=== PATIENT | female | born 1975 | race American Indian/Alaskan Native ===

== ENCOUNTER 2022-01-12 00:48 | Emergency (ER) | payer MEDICAID ==
[2022-01-12 00:56] VITALS: BP 140/90
== END 2022-01-12 02:00 | disposition left against medical advice (07) ==
LOC: ED 00:48
DX: M79.604 Pain in right leg (principal); Z53.21 Procedure and treatment not carried out due to patient leaving prior to being seen by health care provider

== ENCOUNTER 2022-01-12 05:03 | Emergency (ER) | payer MEDICAID ==
--- NOTE | 2022-01-12 07:23 | XRay Report ---
RIGHT HIP 2 VIEW(S) INDICATION / CLINICAL INFORMATION: fall COMPARISON: Right hip x-ray 01/06/2022 FINDINGS: BONES / JOINT(S): Severe degenerative change of the right femoral acetabular joint is stable compared to previous study with subarticular cystic changes and deformity of the right femoral head compatibl e with advanced osteonecrosis as well as shallow appearance of the right acetabulum unchanged from co mparison. Superior translation of the right femoral head within the femoral acetabular joint appears stable. No evidence of fracture clearly demonstrated. SOFT TISSUES: No significant abnormality. ADDITIONAL FINDINGS: Additional AP view of the pelvis demonstrates no acute fracture of the pelvis or proximal left femur. IMPRESSION: 1. 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 No obvious acute superimposed fracture. Signer Name: Dominick White II, MD Signed: 01/12/2022 7:19 AM Workstation Name: [id number]
[2022-01-12] MEDS ORDERED: HYDROcodone/ACETAMINOPHEN 10-325MG TAB PO ONE (07:24)
--- NOTE | 2022-01-12 07:24 | XRay Report ---
RIGHT KNEE 3 VIEW(S) INDICATION / CLINICAL INFORMATION: fall COMPARISON: None available. FINDINGS: BONES / JOINT(S): No acute fracture or subluxation. No significant arthritis. SOFT TISSUES: No significant abnormality. ADDITIONAL FINDINGS: None. IMPRESSION: 1.No acute findings. No significant abnormality. Signer Name: Dominick White II, MD Signed: 01/12/2022 7:19 AM Workstation Name: [id number]
--- NOTE | 2022-01-12 07:38 | XRay Report ---
LUMBAR SPINE 4 VIEWS INDICATION / CLINICAL INFORMATION: fall. COMPARISON: None available. FINDINGS: VERTEBRAE: No acute fracture. No significant malalignment. DISC SPACES / FACET JOINTS:No significant abnormality. PARASPINAL SOFT TISSUES:No significant abnormality. ADDITIONAL FINDINGS: Advanced osteonecrosis of the right femoral head. IMPRESSION: 1. No acute osseous injury of the lumbar spine. Signer Name: Dominick White II, MD Signed: 01/12/2022 7:33 AM Workstation Name: [id number]
--- NOTE | 2022-01-12 07:41 | Emergency Department Report ---
ED Fall HPI - General Chief Complaint: Fall Stated Complaint: LEG PAIN Time Seen by Provider: 01/12/22 06:13 Source: patient Mode of arrival: Ambulatory - History of Present Illness Initial Comments: This is a 47-year-old [place] nontoxic, well nourished in appearance, no acute signs of distress presents to the ED with c/o of right hip and right knee pains s/p fall a few days. Patient stated that she had a mechanical trip and fall down the hill and landed to the right hip area. Patient denies any other injuries or trauma. Patient denies any radiation of pain. Denies any LOC or head trauma. Denies any neck or back pains. Denies any bladder or bowel instability. Patient denies any urinary symptoms. Denies any fever, chills, nausea, vomiting, headache, stiff neck, chest pain or shortness of breath. Patient denies any numbness or tingling. MD Complaint: fall -: days(s) Place Fall Occurred: street Loss of Consciousness: none Prolonged Down Time?: no Symptoms Prior to Fall: none Location - Extremities: Right: Knee Severity: mild Severity scale (0 -10): 8 Quality: aching Context: tripped/slipped Associated Symptoms: denies. denies: headache, neck pain, numbness, weakness, chest paint, shortness of breath, abdominal pain, hematuria, unable to walk, lightheaded, vertigo, confusion - Related Data Home Medications Medication Instructions Recorded Confirmed Last Taken Albuterol Mdi (or & Nicu Only) 2 puff IH QID PRN 01/06/22 01/06/22 Unknown [ProAir HFA Inhaler] Apixaban [Eliquis] 5 mg PO BID 01/06/22 01/06/22 Unknown Bisoprolol/Hydrochlorothiazide 1 each PO DAILY 01/06/22 01/06/22 Unknown [Bisoprolol-Hctz 5-6.25 mg Tab] Clotrimazole 1% [Lotrimin 1%] 1 applic TP BID 01/06/22 01/06/22 Unknown Diclofenac Sodium 50 mg PO BID 01/06/22 01/06/22 Unknown Fluticasone/Salmeterol [Advair 2 puff INHALATION DAILY 01/06/22 01/06/22 Unknown Diskus 100-50 mcg] Gabapentin 100 mg PO Q8HR 01/06/22 01/06/22 Unknown Hydrocortisone 1% [Hydrocortisone 1 applic DAILY 01/06/22 01/06/22 Unknown 1% CREAM] Mupirocin [Bactroban 2% OINT] 1 applic TP TID 01/06/22 01/06/22 Unknown glipiZIDE [Glucotrol] 10 mg PO BID 01/06/22 01/06/22 Unknown lisinopriL [Lisinopril] 10 mg PO DAILY 01/06/22 01/06/22 Unknown metFORMIN [Glucophage] 500 mg PO BID 01/06/22 01/06/22 Unknown Previous Rx's Medication Instructions Recorded Last Taken Type Aspirin [Aspirin BABY CHEW TAB] 81 mg PO QDAY #30 01/09/22 Unknown Rx AtorvaSTATin [Lipitor] 40 mg PO QHS #30 tablet 01/09/22 Unknown Rx Docusate Sodium [Colace CAP] 100 mg PO BID #20 capsule 01/09/22 Unknown Rx Famotidine [Pepcid] 20 mg PO BID #20 tablet 01/09/22 Unknown Rx Acetaminophen [Acetaminophen 8 650 mg PO Q8H PRN #12 tab 01/12/22 Unknown Rx Hour] Allergies Allergy/AdvReac Type Severity Reaction Status Date / Time Iodine and Iodide Containing Allergy Unknown Verified 01/06/22 01:55 Produc tuberculin,PPD,multi-puncture Allergy Unknown Verified 01/06/22 01:55 ED Review of Systems ROS: Stated complaint: LEG PAIN Other details as noted in HPI Comment: All other systems reviewed and negative Constitutional: denies: chills, fever Eyes: denies: eye pain, eye discharge, vision change ENT: denies: ear pain, throat pain Respiratory: denies: cough, shortness of breath, wheezing Cardiovascular: denies: chest pain, palpitations Endocrine: no symptoms reported Gastrointestinal: denies: abdominal pain, nausea, diarrhea Genitourinary: denies: urgency, dysuria, discharge Musculoskeletal: denies: back pain, joint swelling, arthralgia Skin: denies: rash, lesions Neurological: denies: headache, weakness, paresthesias Psychiatric: denies: anxiety, depression Hematological/Lymphatic: denies: easy bleeding, easy bruising ED Past Medical Hx - Past Medical History Previous Medical History?: Yes Hx Hypertension: Yes Hx Heart Attack/AMI: Yes Hx Congestive Heart Failure: Yes Hx Diabetes: Yes Hx Deep Vein Thrombosis: Yes Hx Arthritis: Yes Hx Psychiatric Treatment: Yes Hx Asthma: Yes Hx COPD: Yes Additional medical history: CHRONIC BILATERAL LEG PAIN - Surgical History Past Surgical History?: Yes Hx Coronary Stent: Yes - Social History Smoking Status: Current Every Day Smoker - Medications Home Medications: Home Medications Medication Instructions Recorded Confirmed Last Taken Type Albuterol Mdi (or & Nicu Only) 2 puff IH QID PRN 01/06/22 01/06/22 Unknown History [ProAir HFA Inhaler] Apixaban [Eliquis] 5 mg PO BID 01/06/22 01/06/22 Unknown History Bisoprolol/Hydrochlorothiazide 1 each PO DAILY 01/06/22 01/06/22 Unknown History [Bisoprolol-Hctz 5-6.25 mg Tab] Clotrimazole 1% [Lotrimin 1%] 1 applic TP BID 01/06/22 01/06/22 Unknown History Diclofenac Sodium 50 mg PO BID 01/06/22 01/06/22 Unknown History Fluticasone/Salmeterol [Advair 2 puff INHALATION DAILY 01/06/22 01/06/22 Unknown History Diskus 100-50 mcg] Gabapentin 100 mg PO Q8HR 01/06/22 01/06/22 Unknown History Hydrocortisone 1% [Hydrocortisone 1 applic DAILY 01/06/22 01/06/22 Unknown History 1% CREAM] Mupirocin [Bactroban 2% OINT] 1 applic TP TID 01/06/22 01/06/22 Unknown History glipiZIDE [Glucotrol] 10 mg PO BID 01/06/22 01/06/22 Unknown History lisinopriL [Lisinopril] 10 mg PO DAILY 01/06/22 01/06/22 Unknown History metFORMIN [Glucophage] 500 mg PO BID 01/06/22 01/06/22 Unknown History Aspirin [Aspirin BABY CHEW TAB] 81 mg PO QDAY #30 01/09/22 Unknown Rx AtorvaSTATin [Lipitor] 40 mg PO QHS #30 tablet 01/09/22 Unknown Rx Docusate Sodium [Colace CAP] 100 mg PO BID #20 capsule 01/09/22 Unknown Rx Famotidine [Pepcid] 20 mg PO BID #20 tablet 01/09/22 Unknown Rx Acetaminophen [Acetaminophen 8 650 mg PO Q8H PRN #12 tab 01/12/22 Unknown Rx Hour] ED Physical Exam - General Limitations: No Limitations General appearance: alert, in no apparent distress - Head Head exam: Present: atraumatic, normocephalic - Eye Eye exam: Present: normal appearance, PERRL, EOMI - Neck Neck exam: Present: normal inspection, full ROM. Absent: lymphadenopathy - Respiratory Respiratory exam: Present: normal lung sounds bilaterally. Absent: respiratory distress, wheezes, rales, rhonchi, stridor, chest wall tenderness, accessory muscle use, decreased breath sounds, prolonged expiratory - Cardiovascular Cardiovascular Exam: Present: regular rate, normal rhythm, normal heart sounds. Absent: bradycardia, tachycardia, irregular rhythm, systolic murmur, diastolic murmur, rubs, gallop - GI/Abdominal GI/Abdominal exam: Present: soft, normal bowel sounds. Absent: distended, tenderness, guarding, rebound, rigid - Extremities Exam Extremities exam: Present: normal inspection, full ROM, tenderness, normal capillary refill. Absent: pedal edema, joint swelling, calf tenderness - Expanded Lower Extremity Exam Right Hip exam: Present: normal inspection, full ROM, tenderness, external rotation, internal rotation, pelvic stability. Absent: swelling, abrasion, laceration, ecchymosis, deformity, crepidus, dislocation, erythema, shortening Upper Leg exam: Present: normal inspection, full ROM. Absent: tenderness, swe lling, abrasion, laceration, ecchymosis, deformity, crepidus, dislocation, erythema Knee exam: Present: normal inspection, full ROM, tenderness, full knee extension. Absent: swelling, abrasion, laceration, ecchymosis, deformity, crepidus, dislocation, erythema, effusion, pain w/ pronation/supination, posterior draw sign, pain/laxity with valgus, pain/laxity with varus Lower Leg exam: Present: normal inspection, full ROM. Absent: tenderness, swelling, abrasion, laceration, ecchymosis, deformity, crepidus, dislocation, erythema, palpable cord, Andrew's sign Ankle exam: Present: normal inspection, full ROM. Absent: tenderness, swelling Foot/Toe exam: Present: normal inspection, full ROM. Absent: tenderness, swelling Neuro vascular tendon exam: Present: no vascular compromise Gait: Positive: observed and limited by pain - Back Exam Back exam: Present: normal inspection, full ROM. Absent: tenderness, CVA tenderness (R), CVA tenderness (L), muscle spasm, paraspinal tenderness, vertebral tenderness, rash noted - Neurological Exam Neurological exam: Present: alert, oriented X3 - Psychiatric Psychiatric exam: Present: normal affect, normal mood - Skin Skin exam: Present: warm, dry, intact, normal color. Absent: rash ED Course Vital Signs 01/12/22 05:13 Temperature 98.4 F Pulse Rate 68 Respiratory 16 Rate Blood Pressure 133/84 [Right] O2 Sat by Pulse 97 Oximetry - Reevaluation(s) Reevaluation #1: 01/12/22 07:59 Patient is speaking in full sentences with no signs of distress noted. - Consultations Consultation #1: 01/12/22 08:30 Patient has been consulted with Dr. Epps (orthopedic) about patient history, physical exam, and present imaging studies and pervious imaging studies and patient can be discharged with follow-up in the office in 3-5 days. ED Medical Decision Making - Radiology Data [facility] [address] [place] [address] XRay Report Signed Patient: ESPERANZA FINK MR# : [id number] : 1975 Acct:[id number] Age/Sex: 47 / F ADM Date: 01/12/22 Loc: ED Attending Dr: Ordering Physician: BARRERA LEACH NP Date of Service: 01/12/22 Procedure(s): XR spine lumbosacral 2-3V Accession Number(s): [id number] cc: BARRERA LEACH NP Fluoro Time In Minutes: LUMBAR SPINE 4 VIEWS INDICATION / CLINICAL INFORMATION: fall. COMPARISON: None available. FINDINGS: VERTEBRAE: No acute fracture. No significant malalignment. DISC SPACES / FACET JOINTS:No significant abnormality. PARASPINAL SOFT TISSUES:No significant abnormality. ADDITIONAL FINDINGS: Advanced osteonecrosis of the right femoral head. IMPRESSION: 1. No acute osseous injury of the lumbar spine. Signer Name: Lisa Mcgovern II, MD Signed: 01/12/2022 7:33 AM Workstation Name: [id number] Transcribed By: MARLON Dictated By: LISA MCGOVERN II, MD Electronically Authenticated By: LISA MCGOVERN II, MD Signed Date/Time: 01/12/22732 DD/ 2 TD/TT: [address] [address] XRay Report Signed Patient: ESPERANZA FINK MR# : [id number] : 1975 Acct:[id number] Age/Sex: 47 / F ADM Date: 01/12/22 Loc: ED Attending Dr: Ordering Physician: LEONORA MOCTEZUMA MD Date of Service: 01/12/22 Procedure(s): XR knee 3V RT Accession Number(s): [id number] cc: LEONORA MOCTEZUMA MD Fluoro Time In Minutes: RIGHT KNEE 3 VIEW(S) INDICATION / CLINICAL INFORMATION: fall COMPARISON: None available. FINDINGS: BONES / JOINT(S): No acute fracture or subluxation. No significant arthritis. SOFT TISSUES: No significant abnormality. ADDITIONAL FINDINGS: None. IMPRESSION: 1.No acute findings. No significant abnormality. Signer Name: Lisa Mcgovern II, MD Signed: 01/12/2022 7:19 AM Workstation Name: [id number] Transcribed By: MARLON Dictated By: LISA MCGOVERN II, MD Electronically Authenticated By: LISA MCGOVERN II, MD Signed Date/Time: 01/12/22718 DD/ 8 TD/TT: [address] [address] XRay Report Signed Patient: ESPERANZA FINK MR# : [id number] : 1975 Acct:[id number] Age/Sex: 47 / F ADM Date: 01/12/22 Loc: ED Attending Dr: Ordering Physician: LEONORA MOCTEZUMA MD Date of Service: 01/12/22 Procedure(s): XR hip 2-3V RT Accession Number(s): [id number] cc: LEONORA MOCTEZUMA MD Fluoro Time In Minutes: RIGHT HIP 2 VIEW(S) INDICATION / CLINICAL INFORMATION: fall COMPARISON: Right hip x-ray 01/06/2022 FINDINGS: BONES / JOINT(S): Severe degenerative change of the right femoral acetabular joint is stable compared to previous study with subarticular cystic changes and deformity of the right femoral head compatible with advanced osteonecrosis as well as shallow appearance of the right acetabulum unchanged from comparison. Superior translation of the right femoral head within the femoral acetabular joint appears stable. No evidence of fracture clearly demonstrated. SOFT TISSUES: No significant abnormality. ADDITIONAL FINDINGS: Additional AP view of the pelvis demonstrates no acute fracture of the pelvis or proximal left femur. IMPRESSION: 1. 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 No obvious acute superimposed fracture. Signer Name: Lisa Mcgovern II, MD Signed: 01/12/2022 7:19 AM Workstation Name: [id number] Transcribed By: MARLON Dictated By: LISA MCGOVERN II, MD Electronically Authenticated By: LISA MCGOVERN II, MD Signed Date/Time: 01/12/22718 DD/ 6 TD/TT: - Medical Decision Making This is a 47-year-old female that presents with fall. Patient is stable and was examined by me. I referred patient to an orthopedic doctor for further evaluation for possible MRI. X-ray has been obtained and dictated by the radiologist. Patient is notified of the x-ray report with noted by the patient. No joint swelling. No ecchymosis. no joint redness or swelling. Not warm to touch. No signs of cellulites present. Patient does have a cane that she uses. Patient was instructed to RICE therapy. Patient received [place] for pain which stated improved and stated has someone driving patient home. Patient is discharged with Tylenol Arthritis. At time of discharge, the patient does not seem toxic or ill in appearance. No acute signs of distress noted. Patient agrees to discharge treatment plan of care. No further questions noted by the patient. Critical care attestation.: If time is entered above; I have spent that time in minutes in the direct care of this critically ill patient, excluding procedure time. ED Disposition Clinical Impression: Osteonecrosis of right hip Fall Qualifiers: Encounter type: initial encounter Qualified Code(s): W19.XXXA - Unspecified fall, initial encounter Osteoarthritis of right hip Qualifiers: Osteoarthritis type: unspecified Qualified Code(s): M16.11 - Unilateral primary osteoarthritis, right hip Right knee injury Qualifiers: Encounter type: initial encounter Qualified Code(s): S89.91XA - Unspecified injury of right lower leg, initial encounter Injury of right hip Qualifiers: Encounter type: initial encounter Qualified Code(s): S79.911A - Unspecified injury of right hip, initial encounter Disposition: HOME / SELF CARE / HOMELESS Is pt being admited?: No Does the pt Need Aspirin: No Condition: Stable Instructions: Osteoarthritis Additional Instructions: Follow-up with a orthopedic doctor in 3-5 days or if symptoms worsen and continue return to emergency room as soon as possible. No physical activity that extremity until cleared by orthopedic doctor Prescriptions: Acetaminophen [Acetaminophen 8 Hour] 650 mg PO Q8H PRN #12 tab PRN Reason: Pain , Severe (7-10) Referrals: DONA WATTS MD [Primary Care Provider] - 3-5 Days SASKIA EPPS MD [Staff Physician] - 3-5 Days Time of Disposition: 08:35
[2022-01-12 09:11] VITALS: BP 147/87
== END 2022-01-12 09:15 | disposition home or self-care (01) ==
LOC: ED 05:03
DX: S89.81XA Other specified injuries of right lower leg, initial encounter (principal); S79.911A Unspecified injury of right hip, initial encounter; M87.051 Idiopathic aseptic necrosis of right femur; M16.11 Unilateral primary osteoarthritis, right hip; F17.200 Nicotine dependence, unspecified, uncomplicated; I10 Essential (primary) hypertension; E11.9 Type 2 diabetes mellitus without complications; J45.909 Unspecified asthma, uncomplicated; W19.XXXA Unspecified fall, initial encounter; Y93.89 Activity, other specified; Y92.89 Other specified places as the place of occurrence of the external cause; Y99.8 Other external cause status
CPT/HCPCS: 72100; 99283

== ENCOUNTER 2022-01-13 22:29 | Emergency (ER) | payer MEDICAID ==
--- NOTE | 2022-01-13 23:05 | Emergency Department Report ---
ED General Adult HPI - General Chief complaint: Arrhythmia/Palpitations Stated complaint: HIGH BLOOD SUGAR Time Seen by Provider: 01/13/22 22:52 Source: patient - History of Present Illness Initial comments: This patient presented to the emergency department for evaluation of elevation blood sugar. Patient is on Metformin and glyburide states that she is compliant with her medications. The EMS run sheet is not available but it was stated that the patient complained of palpitations and on checking the glucose found to be reading high on the glucometer. In the emergency department the patient appears to be difficult to understand at times. It would appear that she lives in [facility] and came to [place] 2 weeks ago to live with someone. The relationship of prior events hours at the base of the the patient may be homeless. She denies chest pain nausea diaphoresis or palpitations. -: Gradual, days(s) Improves with: none Worsens with: none Associated Symptoms: denies: chest pain, headaches, nausea/vomiting, shortness of breath Treatments Prior to Arrival: none - Related Data Home Medications Medication Instructions Recorded Confirmed Last Taken Albuterol Mdi (or & Nicu Only) 2 puff IH QID PRN 01/06/22 01/06/22 Unknown [ProAir HFA Inhaler] Apixaban [Eliquis] 5 mg PO BID 01/06/22 01/06/22 Unknown Bisoprolol/Hydrochlorothiazide 1 each PO DAILY 01/06/22 01/06/22 Unknown [Bisoprolol-Hctz 5-6.25 mg Tab] Clotrimazole 1% [Lotrimin 1%] 1 applic TP BID 01/06/22 01/06/22 Unknown Diclofenac Sodium 50 mg PO BID 01/06/22 01/06/22 Unknown Fluticasone/Salmeterol [Advair 2 puff INHALATION DAILY 01/06/22 01/06/22 Unknown Diskus 100-50 mcg] Gabapentin 100 mg PO Q8HR 01/06/22 01/06/22 Unknown Hydrocortisone 1% [Hydrocortisone 1 applic DAILY 01/06/22 01/06/22 Unknown 1% CREAM] Mupirocin [Bactroban 2% OINT] 1 applic TP TID 01/06/22 01/06/22 Unknown glipiZIDE [Glucotrol] 10 mg PO BID 01/06/22 01/06/22 Unknown lisinopriL [Lisinopril] 10 mg PO DAILY 01/06/22 01/06/22 Unknown metFORMIN [Glucophage] 500 mg PO BID 01/06/22 01/06/22 Unknown Previous Rx's Medication Instructions Recorded Last Taken Type Aspirin [Aspirin BABY CHEW TAB] 81 mg PO QDAY #30 01/09/22 Unknown Rx AtorvaSTATin [Lipitor] 40 mg PO QHS #30 tablet 01/09/22 Unknown Rx Docusate Sodium [Colace CAP] 100 mg PO BID #20 capsule 01/09/22 Unknown Rx Famotidine [Pepcid] 20 mg PO BID #20 tablet 01/09/22 Unknown Rx Acetaminophen [Acetaminophen 8 650 mg PO Q8H PRN #12 tab 01/12/22 Unknown Rx Hour] Allergies Allergy/AdvReac Type Severity Reaction Status Date / Time Iodine and Iodide Containing Allergy Unknown Verified 01/06/22 01:55 Produc tuberculin,PPD,multi-puncture Allergy Unknown Verified 01/06/22 01:55 ED Review of Systems ROS: Stated complaint: HIGH BLOOD SUGAR Other details as noted in HPI Constitutional: no symptoms reported. denies: chills, fever ENT: denies: ear pain, throat pain Respiratory: denies: cough, shortness of breath, wheezing Cardiovascular: palpitations. denies: chest pain, edema Endocrine: no symptoms reported Gastrointestinal: denies: abdominal pain, nausea, diarrhea Genitourinary: denies: urgency, dysuria, frequency Skin: denies: rash, lesions Neurological: denies: headache, weakness, numbness, paresthesias Psychiatric: denies: homicidal thoughts, suicidal thoughts Hematological/Lymphatic: denies: easy bleeding, swollen glands ED Past Medical Hx - Past Medical History Hx Hypertension: Yes Hx Heart Attack/AMI: Yes Hx Congestive Heart Failure: Yes Hx Diabetes: Yes Hx Deep Vein Thrombosis: Yes Hx Arthritis: Yes Hx Psychiatric Treatment: Yes Hx Asthma: Yes Hx COPD: Yes Additional medical history: CHRONIC BILATERAL LEG PAIN - Surgical History Hx Coronary Stent: Yes - Social History Smoking Status: Current Every Day Smoker - Medications Home Medications: Home Medications Medication Instructions Recorded Confirmed Last Taken Type Albuterol Mdi (or & Nicu Only) 2 puff IH QID PRN 01/06/22 01/06/22 Unknown History [ProAir HFA Inhaler] Apixaban [Eliquis] 5 mg PO BID 01/06/22 01/06/22 Unknown History Bisoprolol/Hydrochlorothiazide 1 each PO DAILY 01/06/22 01/06/22 Unknown History [Bisoprolol-Hctz 5-6.25 mg Tab] Clotrimazole 1% [Lotrimin 1%] 1 applic TP BID 01/06/22 01/06/22 Unknown History Diclofenac Sodium 50 mg PO BID 01/06/22 01/06/22 Unknown History Fluticasone/Salmeterol [Advair 2 puff INHALATION DAILY 01/06/22 01/06/22 Unknown History Diskus 100-50 mcg] Gabapentin 100 mg PO Q8HR 01/06/22 01/06/22 Unknown History Hydrocortisone 1% [Hydrocortisone 1 applic DAILY 01/06/22 01/06/22 Unknown History 1% CREAM] Mupirocin [Bactroban 2% OINT] 1 applic TP TID 01/06/22 01/06/22 Unknown History glipiZIDE [Glucotrol] 10 mg PO BID 01/06/22 01/06/22 Unknown History lisinopriL [Lisinopril] 10 mg PO DAILY 01/06/22 01/06/22 Unknown History metFORMIN [Glucophage] 500 mg PO BID 01/06/22 01/06/22 Unknown History Aspirin [Aspirin BABY CHEW TAB] 81 mg PO QDAY #30 01/09/22 Unknown Rx AtorvaSTATin [Lipitor] 40 mg PO QHS #30 tablet 01/09/22 Unknown Rx Docusate Sodium [Colace CAP] 100 mg PO BID #20 capsule 01/09/22 Unknown Rx Famotidine [Pepcid] 20 mg PO BID #20 tablet 01/09/22 Unknown Rx Acetaminophen [Acetaminophen 8 650 mg PO Q8H PRN #12 tab 01/12/22 Unknown Rx Hour] ED Physical Exam - General Limitations: Language Barrier (At times the patient speech is garbled, although she is able to say with some clarity that she is from [facility].) General appearance: alert, in no apparent distress - Head Head exam: Present: atraumatic, normocephalic - Eye Eye exam: Present: normal appearance - ENT ENT exam: Present: mucous membranes dry - Neck Neck exam: Present: normal inspection. Absent: tenderness - Respiratory Respiratory exam: Present: wheezes (Mild expiratory) - Cardiovascular Cardiovascular Exam: Present: regular rate, normal rhythm. Absent: systolic murmur, diastolic murmur, rubs, gallop - GI/Abdominal GI/Abdominal exam: Present: soft, normal bowel sounds - Rectal Rectal exam: Present: deferred - Extremities Exam Extremities exam: Present: normal inspection, full ROM. Absent: tenderness - Back Exam Back exam: Present: normal inspection, full ROM. Absent: tenderness, CVA tenderness (R), CVA tenderness (L) - Neurological Exam Neurological exam: Present: alert, oriented X3 - Psychiatric Psychiatric exam: Present: flat affect - Skin Skin exam: Present: warm, dry, intact ED Course Vital Signs 01/13/22 01/14/22 01/14/22 23:07 00:10 03:10 Temperature 97.9 F Pulse Rate 92 H 110 H Respiratory 16 16 16 Rate Blood Pressure 146/99 148/96 [Right] O2 Sat by Pulse 99 98 98 Oximetry 01/14/22 06:57 Temperature Pulse Rate 115 H Respiratory 16 Rate Blood Pressure 156/78 [Right] O2 Sat by Pulse 98 Oximetry ED Medical Decision Making - Lab Data Result diagrams: 01/13/22 23:33 01/13/22 23:33 The patient's labs showed marked elevation of her glucose. - Medical Decision Making Patient was started on IV fluids and given insulin IV. She has so far received 10 units of regular insulin with no significant change in her glucose. In reviewing her labs she does not appear to be in DKA. The patient has a history of congestive heart failure with results and treatment planto be judicious with fluid administration. The patient is on normal saline at 125 cc/h. A chest x- ray was performed in order to determine if the patient could receive fluids more rapidly. The result is pending. I have reevaluated the patient on multiple occasions in order to get some clarity on her social situation. It would appear that the patient came from [facility] to [place] 2 weeks ago, however the relationship between the patient and where she presented to live with went sour. The patient does not give a definite answer as to whether or not she is homeless. She may be in need of a case management evaluation. Critical care attestation.: If time is entered above; I have spent that time in minutes in the direct care of this critically ill patient, excluding procedure time. ED Disposition Clinical Impression: Hyperglycemia due to diabetes mellitus, Homelessness unspecified Disposition: HOME / SELF CARE / HOMELESS Is pt being admited?: No Condition: Stable Instructions: Diabetes Mellitus Type 2 in Adults (ED), Type 2 Diabetes Mellitus, Self Care, Adult Additional Instructions: Take your medications as prescribed from your previous visit. Return to the [facility] if any problems. Referrals: PRIMARY CARE,MD [Primary Care Provider] - 3-5 Days
[2022-01-13 23:52] LABS: Bilirubin,Urine NEG (Negative); Blood,Urine NEG (Negative); Color,Urine Straw (Yellow); Protein,Urine <15 mg/dL mg/dL (Negative); RBC,Urine < 1.0 /HPF (0.0-6.0); Urobilinogen,Urine < 2.0 mg/dL (<2.0); WBC,Urine < 1.0 /HPF (0.0-6.0)
[2022-01-14] LABS: Basophils # (Auto) 0.1 K/mm3 (0.0-0.1); Basophils % (Auto) 1.4 % (0.0-1.8); Eosinophils # (Auto) 0.1 K/mm3 (0.0-0.4); Eosinophils % (Auto) 2.2 % (0.0-4.3); Hematocrit 40.1 % (30.3-42.9); Hemoglobin 13.4 gm/dl (10.1-14.3); Lymphocytes % (Auto) 34.6 % (13.4-35.0); Mean Corpuscular HGB Conc 33 % (30-34); Mean Corpuscular Volume 89 fl (79-97); Monocytes # (Auto) 0.5 K/mm3 (0.0-0.8); Monocytes % (Auto) 8.5 % (0.0-7.3); Platelet Count 340 K/mm3 (140-440); Red Blood Count 4.54 M/mm3 (3.65-5.03); Red Cell Distribution Width 16.3 % (13.2-15.2)
[2022-01-14 00:15] LABS: Alanine Aminotransferase 14 units/L (7-56); Albumin 4.2 g/dL (3.9-5); Blood Urea Nitrogen 8 mg/dL (7-17); Calcium 9.9 mg/dL (8.4-10.2); Hemolysis Index 57
[2022-01-14 00:16] LABS: BUN/Creatinine Ratio 13
[2022-01-14] MEDS ORDERED: INSULIN REGULAR, HUMAN 100 UNITS/1 ML IV ONE ×3 (00:30→06:30)
[2022-01-14] MEDS ORDERED: SODIUM CHLORIDE 0.9% 1000 ML 1,000 ML IV SCH (00:30)
[2022-01-14] MEDS ORDERED: KETOROLAC 30 MG/1 ML INJ ONE (04:57)
[2022-01-14] MEDS ORDERED: KETOROLAC 30 MG/1 ML INJ IV ONE (05:13)
--- NOTE | 2022-01-14 07:03 | XRay Report ---
CHEST 1 VIEW INDICATION / CLINICAL INFORMATION: hx chf. COMPARISON: Chest x-ray 01/06/2022 FINDINGS: SUPPORT DEVICES: None. HEART / MEDIASTINUM: No significant abnormality. LUNGS / PLEURA: The lungs are clear. No pneumothorax. ADDITIONAL FINDINGS: No significant additional findings. IMPRESSION: 1. No active cardiopulmonary disease. Signer Name: Dominick White II, MD Signed: 01/14/2022 6:59 AM Workstation Name: [id number]
[2022-01-14] MEDS ORDERED: POTASSIUM CHLORIDE ER 20 MEQ TAB PO ONE (07:37)
[2022-01-14] MEDS ORDERED: metFORMIN 500 MG TAB PO ONE ×2 (09:47→12:02)
--- NOTE | 2022-01-14 09:50 | Emergency Department Report ---
Blank Doc - Documentation Documentation: 47-year-old female homeless diabetic with hyperglycemia without DKA Glucose in the 280s after multiple doses of insulin and IV fluid provided by previous treating provider Patient states she is compliant with her Metformin 2000 mg twice daily and glipizide 20 mg twice daily She was informed by her doctor (prior to the recent above medication increases) that she might need insulin for glucose control Patient declined insulin therapy at that Patient provided a dose of Metformin 1000 mg and glipizide 10 mg prior to discharge Case management consult complete and patient provided resources and a bus pass Nurse instructed to discharge patient with a snack and juice in case she has symptoms of hypoglycemia after discharge
[2022-01-14] MEDS ORDERED: glipiZIDE 10 MG TAB PO NR (10:00)
[2022-01-14 10:52] VITALS: BP 132/68
== END 2022-01-14 13:00 | disposition home or self-care (01) ==
LOC: ED 22:29
DX: E11.65 Type 2 diabetes mellitus with hyperglycemia (principal); Z59.00 Homelessness unspecified; F17.200 Nicotine dependence, unspecified, uncomplicated; I10 Essential (primary) hypertension; J45.909 Unspecified asthma, uncomplicated
CPT/HCPCS: 36415; 71045; 80053; 81001; 82962; 85025; 96361; 96374; 96375; 96376; 99284; J1885; J7030; 80320; Q0162; Q9967; G0480; J1815

== ENCOUNTER 2022-03-26 11:48 | Inpatient (IN) | payer MEDICAID ==
[2022-03-26 14:33] LABS: Basophils # (Auto) 0.1 K/mm3 (0.0-0.1); Basophils % (Auto) 0.9 % (0.0-1.8); Eosinophils # (Auto) 0.1 K/mm3 (0.0-0.4); Eosinophils % (Auto) 1.5 % (0.0-4.3); Hematocrit 49.3 % (30.3-42.9); Hemoglobin 16.1 gm/dl (10.1-14.3); Lymphocytes # (Auto) 1.5 K/mm3 (1.2-5.4); Lymphocytes % (Auto) 17.4 % (13.4-35.0); Mean Corpuscular HGB Conc 33 % (30-34); Mean Corpuscular Volume 83 fl (79-97); Monocytes # (Auto) 0.8 K/mm3 (0.0-0.8); Red Blood Count 5.97 M/mm3 (3.65-5.03); Red Cell Distribution Width 17.7 % (13.2-15.2)
[2022-03-26 14:52] LABS: Alanine Aminotransferase 9 units/L (7-56); Albumin 4.9 g/dL (3.9-5); Blood Urea Nitrogen 8 mg/dL (7-17); Calcium 10.3 mg/dL (8.4-10.2); Hemolysis Index 2
[2022-03-26 14:58] LABS: BUN/Creatinine Ratio 11
[2022-03-26 17:19] LABS: Platelet Count 338 K/mm3 (140-440)
--- NOTE | 2022-03-26 21:07 | Emergency Department Report ---
ED General Adult HPI - General Chief complaint: Extremity Problem,Nontraumatic Stated complaint: LEFT LEG PAIN Time Seen by Provider: 03/26/22 21:03 Source: patient, EMS, RN notes reviewed, old records reviewed Mode of arrival: Stretcher Limitations: No Limitations - History of Present Illness Initial comments: The patient was evaluated in the emergency department for symptoms described in the history of present illness. He/she was evaluated in the context of the global COVID-19 pandemic, which necessitated consideration that the patient might be at risk for infection with the virus that causes COVID-19. Institutional protocols and algorithms that pertain to the evaluation of patients at risk for COVID-19 are in a state of rapid change based on information released by regulatory bodies including the CDC and federal and state organizations. These policies and algorithms were followed during the patient's care in the emergency department. Please note that these policies, procedures and recommendations changed on a rapid basis. This is a pleasant and cooperative 47-year-old female, who reports that she is not , who presents to the emergency room today with a complaint of left dorsal and left great toe foot pain, swelling, burning, and warmth. She reports that in mid January, she had a toe surgery performed in [facility], and has not been able to follow-up with her outpatient general surgeon. Positive chills. No fever that she is aware of. No chest pain abdominal pain. No nausea vomiting or diarrhea. No urinary symptoms. Pain sharp aching throbbing, constant, increases with palpation and range of motion, and decreases with rest. Past medical history is complex, including osteoarthritis, CHF, COPD, not on ho me O2, DVT of the right lower extremity, diabetes, hypertension, depression, CAD, recent A1c almost 11. -: Gradual, days(s) Location: left, lower extremity Consistency: constant Improves with: other Worsens with: other - Related Data Home Medications Medication Instructions Recorded Confirmed Last Taken Albuterol Mdi (or & Nicu Only) 2 puff IH QID PRN 01/06/22 01/06/22 Unknown [ProAir HFA Inhaler] Apixaban [Eliquis] 5 mg PO BID 01/06/22 01/06/22 Unknown Bisoprolol/Hydrochlorothiazide 1 each PO DAILY 01/06/22 01/06/22 Unknown [Bisoprolol-Hctz 5-6.25 mg Tab] Clotrimazole 1% [Lotrimin 1%] 1 applic TP BID 01/06/22 01/06/22 Unknown Diclofenac Sodium 50 mg PO BID 01/06/22 01/06/22 Unknown Fluticasone/Salmeterol [Advair 2 puff INHALATION DAILY 01/06/22 01/06/22 Unknown Diskus 100-50 mcg] Gabapentin 100 mg PO Q8HR 01/06/22 01/06/22 Unknown Hydrocortisone 1% [Hydrocortisone 1 applic DAILY 01/06/22 01/06/22 Unknown 1% CREAM] Mupirocin [Bactroban 2% OINT] 1 applic TP TID 01/06/22 01/06/22 Unknown glipiZIDE [Glucotrol] 10 mg PO BID 01/06/22 01/06/22 Unknown lisinopriL [Lisinopril] 10 mg PO DAILY 01/06/22 01/06/22 Unknown metFORMIN [Glucophage] 500 mg PO BID 01/06/22 01/06/22 Unknown Previous Rx's Medication Instructions Recorded Last Taken Type Aspirin [Aspirin BABY CHEW TAB] 81 mg PO QDAY #30 01/09/22 Unknown Rx AtorvaSTATin [Lipitor] 40 mg PO QHS #30 tablet 01/09/22 Unknown Rx Docusate Sodium [Colace CAP] 100 mg PO BID #20 capsule 01/09/22 Unknown Rx Famotidine [Pepcid] 20 mg PO BID #20 tablet 01/09/22 Unknown Rx Acetaminophen [Acetaminophen 8 650 mg PO Q8H PRN #12 tab 01/12/22 Unknown Rx Hour] Allergies Allergy/AdvReac Type Severity Reaction Status Date / Time Iodine and Iodide Containing Allergy Unknown Verified 03/26/22 11:53 Produc tuberculin,PPD,multi-puncture Allergy Unknown Verified 03/26/22 11:53 ED Review of Systems ROS: Stated complaint: LEFT LEG PAIN Other details as noted in HPI Constitutional: chills. denies: fever Eyes: denies: eye discharge ENT: denies: epistaxis Respiratory: denies: cough Cardiovascular: denies: chest pain Gastrointestinal: denies: abdominal pain Genitourinary: denies: dysuria Musculoskeletal: joint swelling, arthralgia, myalgia Skin: rash, lesions Neurological: denies: weakness Hematological/Lymphatic: denies: easy bleeding ED Past Medical Hx - Past Medical History Hx Hypertension: Yes Hx Heart Attack/AMI: Yes Hx Congestive Heart Failure: Yes Hx Diabetes: Yes Hx Deep Vein Thrombosis: Yes Hx Arthritis: Yes Hx Psychiatric Treatment: Yes Hx Asthma: Yes Hx COPD: Yes Additional medical history: CHRONIC BILATERAL LEG PAIN - Surgical History Hx Coronary Stent: Yes - Social History Smoking Status: Current Every Day Smoker - Medications Home Medications: Home Medications Medication Instructions Recorded Confirmed Last Taken Type Albuterol Mdi (or & Nicu Only) 2 puff IH QID PRN 01/06/22 01/06/22 Unknown History [ProAir HFA Inhaler] Apixaban [Eliquis] 5 mg PO BID 01/06/22 01/06/22 Unknown History Bisoprolol/Hydrochlorothiazide 1 each PO DAILY 01/06/22 01/06/22 Unknown History [Bisoprolol-Hctz 5-6.25 mg Tab] Clotrimazole 1% [Lotrimin 1%] 1 applic TP BID 01/06/22 01/06/22 Unknown History Diclofenac Sodium 50 mg PO BID 01/06/22 01/06/22 Unknown History Fluticasone/Salmeterol [Advair 2 puff INHALATION DAILY 01/06/22 01/06/22 Unknown History Diskus 100-50 mcg] Gabapentin 100 mg PO Q8HR 01/06/22 01/06/22 Unknown History Hydrocortisone 1% [Hydrocortisone 1 applic DAILY 01/06/22 01/06/22 Unknown History 1% CREAM] Mupirocin [Bactroban 2% OINT] 1 applic TP TID 01/06/22 01/06/22 Unknown History glipiZIDE [Glucotrol] 10 mg PO BID 01/06/22 01/06/22 Unknown History lisinopriL [Lisinopril] 10 mg PO DAILY 01/06/22 01/06/22 Unknown History metFORMIN [Glucophage] 500 mg PO BID 01/06/22 01/06/22 Unknown History Aspirin [Aspirin BABY CHEW TAB] 81 mg PO QDAY #30 01/09/22 Unknown Rx AtorvaSTATin [Lipitor] 40 mg PO QHS #30 tablet 01/09/22 Unknown Rx Docusate Sodium [Colace CAP] 100 mg PO BID #20 capsule 01/09/22 Unknown Rx Famotidine [Pepcid] 20 mg PO BID #20 tablet 01/09/22 Unknown Rx Acetaminophen [Acetaminophen 8 650 mg PO Q8H PRN #12 tab 01/12/22 Unknown Rx Hour] ED Physical Exam - General Limitations: No Limitations General appearance: alert, in no apparent distress - Head Head exam: Present: atraumatic, normocephalic - Eye Eye exam: Present: normal appearance, EOMI. Absent: nystagmus - ENT ENT exam: Present: normal exam, normal orophraynx, mucous membranes moist, normal external ear exam - Neck Neck exam: Present: normal inspection, full ROM. Absent: tenderness, meningismus - Respiratory Respiratory exam: Present: normal lung sounds bilaterally. Absent: respiratory distress, wheezes, rales, rhonchi, stridor, decreased breath sounds - Cardiovascular Cardiovascular Exam: Present: normal rhythm, tachycardia, normal heart sounds. Absent: bradycardia, irregular rhythm, systolic murmur, diastolic murmur, rubs, gallop - GI/Abdominal GI/Abdominal exam: Present: soft. Absent: distended, tenderness, guarding, rebound, rigid, pulsatile mass - Extremities Exam Extremities exam: Present: full ROM, tenderness (There is tenderness noted to the left great toe, left dorsal foot, and there is warmth appreciated to the left dorsal foot, and left distal lower extremity), other (Hyperpigmentation is noted to the distal dorsal left lower extremity, there is evidence of partial amputation of the left great toe, sutures are in place, with dry gangrene.). Absent: normal inspection (The bilateral upper extremities are within normal limits. The right lower extremity is within normal limits. 2+ pulses noted in the bilateral upper and lower extremities. The upper extremities are nontender, and the right lower extremity is nontender) - Back Exam Back exam: Present: normal inspection. Absent: tenderness, CVA tenderness (R), CVA tenderness (L), paraspinal tenderness, vertebral tenderness - Neurological Exam Neurological exam: Present: alert, oriented X3, normal gait, other (No facial droop. Tongue midline. Extraocular movements intact bilaterally. Facial sensation intact to light touch in V1, V2, V3 distribution bilaterally. 5 and a 5 strength in 4 extremities. Sensation intact to light touch in 4 extremities.). Absent: motor sensory deficit - Psychiatric Psychiatric exam: Present: anxious - Skin Skin exam: Present: warm, other (There is left distal great toe black tissue. Sutures are in place. Hyperpigmentation is noted on the left dorsal foot. The left lower extremity muscular compartments are soft.) ED Course Vital Signs 03/26/22 03/26/22 11:50 21:09 Temperature 99.7 F H Pulse Rate 103 H 110 H Respiratory 19 Rate Blood Pressure 163/91 172/97 [Left] O2 Sat by Pulse 99 99 Oximetry - Reevaluation(s) Reevaluation #1: 03/26/22 21:38 Differential diagnosis, including but not limited to: Abscess, cellulitis, myositis, osteomyelitis, hyperglycemia, diabetic ketoacidosis Assessment and plan: 47-year-old female with evidence of left great toe and left foot infection, complicated by hyperglycemia. Obtain venous pH, CK, noncontrast CT scan of the left lower extremity (patient not able to tolerate iodine or iodine containing products), start fluids, pain medication, nausea medication, broad-spectrum antibiotics, and insulin therapy. Anticipate admission to the medical service failure presumed left distal lower extremity, complicated by hyperglycemia. I discussed this plan of care with the patient, and she is agreeable to the plan of care. I contacted our general surgeon on-call, Dr. Tosha Pickard Discussed the patient's history, physical, laboratory studies, pending imaging studies, clinical impression and plan of care. She is in agreement with the plan of care, and will follow in consultation. Once CT scan of the left lower extremity has resulted along with venous pH, we will contact the hospital physician to arrange admission. Reevaluation #2: 03/26/22 21:51 Dr Maria R White to admit to [facility] Please note that the hospital is currently out of lactic acid tubes, and we are not able to run lactic acid. 03/26/22 22:31 Venous pH not consistent with diabetic ketoacidosis. CT scan left lower extremity pending interpretation. ED Medical Decision Making - Lab Data Result diagrams: 03/26/22 12:51 03/26/22 12:51 Vital Signs 03/26/22 11:50 Pulse Rate 103 H Blood Pressure 163/91 [Left] O2 Sat by Pulse 99 Oximetry Lab Results 03/26/22 03/26/22 Range/Units 12:51 12:51 WBC 8.8 (4.5-11.0) K/mm3 RBC 5.97 H (3.65-5.03) M/mm3 Hgb 16.1 H (10.1-14.3) gm/dl Hct 49.3 H (30.3-42.9) % MCV 83 (79-97) fl MCH 27 L (28-32) pg MCHC 33 (30-34) % RDW 17.7 H (13.2-15.2) % Plt Count 338 (140-440) K/mm3 Lymph % (Auto) 17.4 (13.4-35.0) % [place] % (Auto) 9.0 H (0.0-7.3) % Eos % (Auto) 1.5 (0.0-4.3) % Baso % (Auto) 0.9 (0.0-1.8) % Lymph # (Auto) 1.5 (1.2-5.4) K/mm3 [place] # (Auto) 0.8 (0.0-0.8) K/mm3 Eos # (Auto) 0.1 (0.0-0.4) K/mm3 Baso # (Auto) 0.1 (0.0-0.1) K/mm3 Seg Neutrophils % 71.2 H (40.0-70.0) % Seg Neutrophils # 6.3 (1.8-7.7) K/mm3 Sodium 133 L (137-145) mmol/L Potassium 4.3 (3.6-5.0) mmol/L Chloride 92.7 L (98-107) mmol/L Carbon Dioxide 23 (22-30) mmol/L Anion Gap 22 mmol/L BUN 8 (7-17) mg/dL Creatinine 0.7 (0.6-1.2) mg/dL Estimated GFR > 60 ml/min BUN/Creatinine Ratio 11 % Glucose 455 H (65-100) mg/dL Calcium 10.3 H (8.4-10.2) mg/dL Total Bilirubin 0.70 (0.1-1.2) mg/dL AST 12 (5-40) units/L ALT 9 (7-56) units/L Alkaline Phosphatase 112 (35-129) units/L Total Protein 10.0 H (6.3-8.2) g/dL Albumin 4.9 (3.9-5) g/dL Albumin/Globulin Ratio 1.0 % - Radiology Data Radiology results: report reviewed, image reviewed CT lower extremity LT wo con INDICATION: lle wound abscess celluiutis. TECHNIQUE: All CT scans at this location are performed using CT dose reduction for ALARA by means of automated exposure control. COMPARISON: None available. FINDINGS: Previous amputation of first toe distal phalanx. No fracture or dislocation. Joint spaces well-preserved. Soft tissue ulcer of distal first toe. No CT evidence for osteomyelitis/cortical destruction. Mild soft tissue swelling of first toe and dorsal foot characteristic for cellulitis area no ab scess IMPRESSION: 1. Soft tissue ulcer distal first toe with cellulitis left foot. 2. No CT evidence for osteomyelitis. 3. Previous amputation first toe at the IP joint Signer Name: Leandro Armando MD Signed: 03/26/2022 9:44 PM Workstation Name: [id number] Critical Care Time: Yes Critical care time in (mins) excluding proc time.: 35 Critical care attestation.: If time is entered above; I have spent that time in minutes in the direct care of this critically ill patient, excluding procedure time. ED Disposition Clinical Impression: SIRS (systemic inflammatory response syndrome), Hyperglycemia, Abscess of left great toe, Left leg cellulitis, Dehydration Disposition: ADMITTED INPATIENT Is pt being admited?: Yes Does the pt Need Aspirin: No Condition: Good
[2022-03-26] MEDS ORDERED: LACTATED RINGERS 1,000 ML IV ONE (21:12)
[2022-03-26] MEDS ORDERED: INSULIN REGULAR, HUMAN 100 UNITS/1 ML IV ONE (21:12)
[2022-03-26] MEDS ORDERED: ONDANSETRON 4 MG/2 ML INJ IV ONE (21:12)
[2022-03-26] MEDS ORDERED: MORPHINE 4 MG/1 ML INJ IV ONE (21:12)
[2022-03-26] MEDS ORDERED: VANCOMYCIN 1,750 MG in SODIUM CHLORIDE 0.9% 500 ML 500 ML IV ONE (21:12)
[2022-03-26] MEDS ORDERED: ACETAMINOPHEN 325 MG TAB PO ONE (21:14)
[2022-03-26] MEDS ORDERED: SODIUM CHLORIDE 0.9% 100 ML IVPB IV SCH (22:00)
[2022-03-26] MEDS ORDERED: ceFAZolin/Water 2 GM/20 ML 2 GM/20 ML SYRINGE IV NR (22:00)
[2022-03-26 22:05] LABS: INR 0.9 (0.87-1.13); Partial Thromboplastin Time 28.6 Sec. (24.2-36.6)
[2022-03-26] MEDS ORDERED: ONDANSETRON 4 MG/2 ML INJ IV PRN (22:22)
[2022-03-26] MEDS ORDERED: DEXTROSE 50% IN WATER (25GM) 50 ML SYRINGE IV PRN (22:22)
[2022-03-26] MEDS ORDERED: MAGNESIUM HYDROXIDE (MOM) ORAL LIQD UDC PO PRN (22:22)
--- NOTE | 2022-03-26 22:42 | History and Physical Report ---
History of Present Illness Date of examination: 03/26/22 Date of admission: 03/26/2022 Chief complaint: Left great Toe Pain History of present illness: 47-year-old -[place] female with known history of diabetes mellitus, congestive heart failure, hypertension, arthritis, COPD and history of DVT in the past presenting to the emergency room today with complaint of left foot wound with pain. She has been having progressive swelling and warmth with some burning sensation in the left foot. Patient had foot surgery performed in [facility] sometime in January 2022 but has not followed up on outpatient basis with his surgeon. She has had some chills but denies any fever. Patient denies any chest pain or shortness of breath, no nausea vomiting and no abdominal pain. Work-up in the emergency room today, lab reveals blood glucose of 455, urinalysis reveals mild UTI. Left lower extremity CT reveals soft tissue ulcer distal first toe with cellulitis of the left foot. No CT evidence of osteomyelitis. Previous amputation first toe at the IP joint. Patient has been commenced on empiric IV antibiotics. Past History Past Medical History: acute SC, arthritis, COPD, diabetes, DVT, other (Asthma) Past Surgical History: PTCA Social history: smoking (Current daily smoker) Family history: no significant family history Medications and Allergies Allergies Allergy/AdvReac Type Severity Reaction Status Date / Time Iodine and Iodide Containing Allergy Unknown Verified 03/26/22 11:53 Produc tuberculin,PPD,multi-puncture Allergy Unknown Verified 03/26/22 11:53 Home Medications Medication Instructions Recorded Confirmed Last Taken Type Albuterol Mdi (or & Nicu Only) 2 puff IH QID PRN 01/06/22 01/06/22 Unknown History [ProAir HFA Inhaler] Apixaban [Eliquis] 5 mg PO BID 01/06/22 01/06/22 Unknown History Bisoprolol/Hydrochlorothiazide 1 each PO DAILY 01/06/22 01/06/22 Unknown History [Bisoprolol-Hctz 5-6.25 mg Tab] Clotrimazole 1% [Lotrimin 1%] 1 applic TP BID 01/06/22 01/06/22 Unknown History Diclofenac Sodium 50 mg PO BID 01/06/22 01/06/22 Unknown History Fluticasone/Salmeterol [Advair 2 puff INHALATION DAILY 01/06/22 01/06/22 Unknown History Diskus 100-50 mcg] Gabapentin 100 mg PO Q8HR 01/06/22 01/06/22 Unknown History Hydrocortisone 1% [Hydrocortisone 1 applic DAILY 01/06/22 01/06/22 Unknown Histo ry 1% CREAM] Mupirocin [Bactroban 2% OINT] 1 applic TP TID 01/06/22 01/06/22 Unknown History glipiZIDE [Glucotrol] 10 mg PO BID 01/06/22 01/06/22 Unknown History lisinopriL [Lisinopril] 10 mg PO DAILY 01/06/22 01/06/22 Unknown History metFORMIN [Glucophage] 500 mg PO BID 01/06/22 01/06/22 Unknown History Aspirin [Aspirin BABY CHEW TAB] 81 mg PO QDAY #30 01/09/22 Unknown Rx AtorvaSTATin [Lipitor] 40 mg PO QHS #30 tablet 01/09/22 Unknown Rx Docusate Sodium [Colace CAP] 100 mg PO BID #20 capsule 01/09/22 Unknown Rx Famotidine [Pepcid] 20 mg PO BID #20 tablet 01/09/22 Unknown Rx Acetaminophen [Acetaminophen 8 650 mg PO Q8H PRN #12 tab 01/12/22 Unknown Rx Hour] Active Meds: Active Medications Acetaminophen (Acetaminophen 325 Mg Tab) 650 mg PO Q4H PRN PRN Reason: Pain MILD(1-3)/Fever >100.5/RICH Dextrose (Dextrose 50% In Water (25gm) 50 Ml Syringe) 50 ml IV Q30MIN PRN; Protocol PRN Reason: Hypoglycemia Vancomycin HCl 1,750 mg/ (Sodium Chloride) 535 mls @ 333 mls/hr IV ONCE ONE; Protocol Stop: 03/26/22 22:48 Cefazolin Sodium (Ancef/Sterile Water 2 Gm/20 Ml) 2 gm in 20 mls @ 80 mls/hr IV NOW NR; Protocol Stop: 03/26/22 23:59 Sodium Chloride (Nacl 0.9% 1000 Ml) 1,000 mls @ 125 mls/hr IV DIRECT JULIENNE Piperacillin Sod/Tazobactam Sod (Zosyn/Ns 4.5gm/100ml) 4.5 gm in 100 mls @ 200 mls/hr IV Q8H JULIENNE; Protocol Insulin Human Lispro (Insulin Lispro 100 Unit/Ml) 0 unit SUB-Q ACHS JULIENNE; Protocol Magnesium Hydroxide (Magnesium Hydroxide (Mom) Oral Liqd Udc) 30 ml PO Q4H PRN PRN Reason: Constipation Morphine Sulfate (Morphine 2 Mg/1 Ml Inj) 2 mg IV Q4H PRN PRN Reason: Pain, Moderate (4-6) Morphine Sulfate (Morphine 4 Mg/1 Ml Inj) 4 mg IV Q4H PRN PRN Reason: Pain , Severe (7-10) Ondansetron HCl (Ondansetron 4 Mg/2 Ml Inj) 4 mg IV Q8H PRN PRN Reason: Nausea And Vomiting Sodium Chloride (Sodium Chloride 0.9% 100 Ml Ivpb) 100 ml IV DIRECT JULIENNE Stop: 03/26/22 23:59 Sodium Chloride (Sodium Chloride 0.9% 10 Ml Flush Syringe) 10 ml IV BID JULIENNE Sodium Chloride (Sodium Chloride 0.9% 10 Ml Flush Syringe) 10 ml IV PRN PRN PRN Reason: LINE FLUSH Review of Systems Constitutional: no fever, no chills Ears, nose, mouth and throat: no nasal congestion, no sore throat Cardiovascular: no chest pain, no palpitations Respiratory: no cough, no shortness of breath Gastrointestinal: no abdominal pain, no nausea, no vomiting, no diarrhea Genitourinary Female: no pelvic pain, no flank pain, no dysuria, no hematuria Musculoskeletal: no neck pain, no low back pain Integumentary: no rash, no pruritis Neurological: no headaches, no confusion Psychiatric: no anxiety, no depression Endocrine: no polydipsia, no polyuria, no nocturia Exam - Constitutional Vitals: Temp Pulse Resp BP Pulse Ox 99.7 F H 110 H 19 172/97 99 03/26/22 21:09 03/26/22 21:09 03/26/22 21:09 03/26/22 21:09 03/26/22 21:09 General appearance: Present: no acute distress, well-nourished - EENT Eyes: Present: PERRL, EOM intact. Absent: scleral icterus ENT: hearing intact, clear oral mucosa, dentition normal - Neck Neck: Present: supple, normal ROM - Respiratory Respiratory effort: normal Respiratory: bilateral: CTA - Cardiovascular Rhythm: regular Heart Sounds: Present: S1 & S2. Absent: gallop, systolic murmur, diastolic murmur, rub, click - Extremities Extremities: no ischemia, pulses intact, pulses symmetrical, normal temperature, normal color, Full ROM Extremity abnormal: edema (1+left lower extremity edema), ulceration (Left big toe open ulcer, no obvious drainage. Suture materials still in place on stump of the left great toe) Peripheral Pulses: within normal limits - Abdominal General gastrointestinal: Present: soft, non-tender, non-distended, normal bowel sounds. Absent: mass - Integumentary Integumentary: Present: clear, warm, dry, normal turgor - Musculoskeletal Musculoskeletal: strength equal bilaterally - Psychiatric Psychiatric: appropriate mood/affect, intact judgment & insight, memory intact, cooperative - Neurologic Neurologic: CNII-XII intact, no focal deficits, no moves all extremities Results - Labs CBC & Chem 7: 03/26/22 12:51 03/26/22 12:51 Labs: Abnormal lab results 03/26/22 03/26/22 Range/Units 12:51 12:51 RBC 5.97 H (3.65-5.03) M/mm3 Hgb 16.1 H (10.1-14.3) gm/dl Hct 49.3 H (30.3-42.9) % MCH 27 L (28-32) pg RDW 17.7 H (13.2-15.2) % Iron % (Auto) 9.0 H (0.0-7.3) % Seg Neutrophils % 71.2 H (40.0-70.0) % Sodium 133 L (137-145) mmol/L Chloride 92.7 L (98-107) mmol/L Glucose 455 H (65-100) mg/dL Calcium 10.3 H (8.4-10.2) mg/dL Total Protein 10.0 H (6.3-8.2) g/dL Assessment and Plan Assessment: 1. Cellulitis of the left foot 2. Hyperglycemia 3. UTI 4. Hypertension 5. History of COPD Plan: 1. Patient commenced on empiric IV antibiotics. 2. General surgery has been consulted for evaluation and recommendations 3. Will resume routine home medications once reconciled. 4. Patient placed on sliding scale insulin, will monitor Accu-Cheks. DVT prophylaxis: Sequential compression device CODE STATUS: Full code
--- NOTE | 2022-03-26 22:49 | Cat Scan Report ---
CT lower extremity LT wo con INDICATION: lle wound abscess celluiutis. TECHNIQUE: All CT scans at this location are performed using CT dose reduction for ALARA by means of automated e xposure control. COMPARISON: None available. FINDINGS: Previous amputation of first toe distal phalanx. No fracture or dislocation. Joint spaces well-preser katina. Soft tissue ulcer of distal first toe. No CT evidence for osteomyelitis/cortical destruction. Mi ld soft tissue swelling of first toe and dorsal foot characteristic for cellulitis area no abscess IMPRESSION: 1. Soft tissue ulcer distal first toe with cellulitis left foot. 2. No CT evidence for osteomyelitis. 3. Previous amputation first toe at the IP joint Signer Name: Leandro Armando MD Signed: 03/26/2022 10:44 PM Workstation Name: [id number]
[2022-03-26 22:54] LABS: Mucus,Urine FEW /HPF
[2022-03-26] MEDS ORDERED: VANCOMYCIN PHARMACY TO DOSE IV SCH (23:00)
[2022-03-26 23:05] LABS: Color,Urine Straw (Yellow)
[2022-03-26 23:06] LABS: Bilirubin,Urine Negative (Negative); Blood,Urine Trace (Negative)
[2022-03-26 23:07] LABS: Protein,Urine <15 mg/dL mg/dL (Negative); Urobilinogen,Urine < 2.0 mg/dL (<2.0)
[2022-03-26 23:24] LABS: C-Reactive Protein 3.9 mg/dL (0.00-1.30)
[2022-03-27] MEDS ORDERED: ZOLPIDEM 5 MG TAB PO ONE (01:55)
[2022-03-27] MEDS: MORPHINE 4 MG/1 ML INJ IV PRN ×4 (02:07→23:44)
[2022-03-27] MEDS: SODIUM CHLORIDE 0.9% 1000 ML 1,000 ML IV SCH ×2 (02:11→14:08)
[2022-03-27] MEDS: MORPHINE 2 MG/1 ML INJ IV PRN (05:51)
[2022-03-27] MEDS: PIPERACIL/TAZOBACTA 4.5/NS 100 4.5 GM/100 ML VIAL IV SCH ×4 (06:47→23:42)
[2022-03-27 08:41] LABS: Basophils # (Auto) 0.1 K/mm3 (0.0-0.1); Basophils % (Auto) 1.1 % (0.0-1.8); Eosinophils # (Auto) 0.3 K/mm3 (0.0-0.4); Eosinophils % (Auto) 3.6 % (0.0-4.3); Hematocrit 40.8 % (30.3-42.9); Hemoglobin 13.1 gm/dl (10.1-14.3); Lymphocytes # (Auto) 1.5 K/mm3 (1.2-5.4); Lymphocytes % (Auto) 18.8 % (13.4-35.0); Mean Corpuscular HGB Conc 32 % (30-34); Mean Corpuscular Volume 83 fl (79-97); Monocytes # (Auto) 0.8 K/mm3 (0.0-0.8); Monocytes % (Auto) 10.2 % (0.0-7.3); Platelet Count 288 K/mm3 (140-440); Red Blood Count 4.94 M/mm3 (3.65-5.03); Red Cell Distribution Width 17.1 % (13.2-15.2)
[2022-03-27 09:00] LABS: Blood Urea Nitrogen 5 mg/dL (7-17); Calcium 8.8 mg/dL (8.4-10.2); Hemolysis Index 25
[2022-03-27 09:06] LABS: BUN/Creatinine Ratio 8
[2022-03-27] MEDS: GABAPENTIN 100 MG CAP PO SCH ×3 (09:22→21:59)
[2022-03-27] MEDS: LISINOPRIL 10 MG TAB PO SCH (09:22)
[2022-03-27] MEDS: FAMOTIDINE 20 MG TAB PO SCH ×2 (09:22→21:59)
[2022-03-27] MEDS: hydroCHLOROthiazide 12.5 MG CAP PO SCH (09:22)
[2022-03-27] MEDS: INSULIN LISPRO 100 UNIT/ML SUB-Q SCH ×4 (09:23→22:05)
--- NOTE | 2022-03-27 09:40 | Progress Note ---
Assessment and Plan Assessment and plan: #Cellulitis of the left foot #Diabetic foot ulcer -continue vanc, zosyn for now -LLE venous and arterial dopplers ordered -tight glucose control to promote healing -General surgery consulted, assistance appreciated #Type II Diabetes Mellitus with hyperglycemia -will order A1C; patient reports A1C of 10% in December 2021 -takes metformin and glipizide outpatient; has previously used insulin but thought blood sugars were subjectively too low (in 80s) -continue SSI with accuchecks TID WM -will start 12 units of lantus qhs; patient refused the dose this morning -goal glucose 140-180 while critically ill #Volume depletion-improved -likely secondary to hyperglycemia -will continue IVFs for 24 more hours #UTI ruled out #Vulvar candidasis -UA shows WBC, but patient has no symptoms; urine culture pending -diflucan x1 #Hypertension -continue home BP medications -goal SBP <160 while inpatient #History of DVT -Patient currently taking Xarelto and unknown dose -will start Xarelto 10mg qday #History of COPD -controlled, patient not taking medications at home #Tobacco dependence #Tobacco cessation counseling -Smoking cessation counseling, supportive care, behavior change counseling, +15 minutes. -patient refused nicotine patch History Interval history: No acute events overnight. Patient reports improved pain in left lower since admission. She is temporarily in [place], but plans to return to [place]. She has no other complaints at this time. Hospitalist Physical - Physical exam Narrative exam: GENERAL: Well-developed well-nourished. In no acute distress. HEENT: Normocephalic. Atraumatic. NECK: Supple. CHEST/LUNGS: CTAB on room air HEART/CARDIOVASCULAR: Tachycardic. No murmur, rubs or gallops appreciated. ABDOMEN: +BS. NT/ND. SKIN: No rashes noted. NEURO: No focal motor deficit. Follows all commands. MUSCULOSKELETAL: No joint effusion EXTREMITIES: L foot bandage intact without drainage. No cyanosis, clubbing or edema. PSYCH: Cooperative. - Constitutional Vitals: Temp Pulse Resp BP Pulse Ox 98.6 F 98 H 18 145/96 100 03/27/22 08:09 03/27/22 08:09 03/27/22 08:09 03/27/22 08:09 03/27/22 08:09 General appearance: Present: no acute distress, well-nourished Results - Labs CBC & Chem 7: 03/27/22 14:03 03/28/22 04:24 Labs: Laboratory Last Values WBC 8.1 K/mm3 (4.5-11.0) 03/27/22 08:03 RBC 4.94 M/mm3 (3.65-5.03) 03/27/22 08:03 Hgb 13.1 gm/dl (10.1-14.3) D 03/27/22 08:03 Hct 40.8 % (30.3-42.9) D 03/27/22 08:03 MCV 83 fl (79-97) 03/27/22 08:03 MCH 27 pg (28-32) L 03/27/22 08:03 MCHC 32 % (30-34) 03/27/22 08:03 RDW 17.1 % (13.2-15.2) H 03/27/22 08:03 Plt Count 288 K/mm3 (140-440) 03/27/22 08:03 Lymph % (Auto) 18.8 % (13.4-35.0) 03/27/22 08:03 [place] % (Auto) 10.2 % (0.0-7.3) H 03/27/22 08:03 Eos % (Auto) 3.6 % (0.0-4.3) 03/27/22 08:03 Baso % (Auto) 1.1 % (0.0-1.8) 03/27/22 08:03 Lymph # (Auto) 1.5 K/mm3 (1.2-5.4) 03/27/22 08:03 [place] # (Auto) 0.8 K/mm3 (0.0-0.8) 03/27/22 08:03 Eos # (Auto) 0.3 K/mm3 (0.0-0.4) 03/27/22 08:03 Baso # (Auto) 0.1 K/mm3 (0.0-0.1) 03/27/22 08:03 Seg Neutrophils % 66.3 % (40.0-70.0) 03/27/22 08:03 Seg Neutrophils # 5.4 K/mm3 (1.8-7.7) 03/27/22 08:03 ESR 18 mm/Hr (0-20) 03/26/22 21:23 PT 13.1 Sec. (12.2-14.9) 03/26/22 21:23 INR 0.90 (0.87-1.13) 03/26/22 21:23 APTT 28.6 Sec. (24.2-36.6) 03/26/22 21:23 VBG pH 7.404 (7.320-7.420) 03/26/22 21:23 Sodium 134 mmol/L (137-145) L 03/27/22 08:03 Potassium 3.9 mmol/L (3.6-5.0) 03/27/22 08:03 Chloride 99.6 mmol/L (98-107) 03/27/22 08:03 Carbon Dioxide 23 mmol/L (22-30) 03/27/22 08:03 Anion Gap 15 mmol/L 03/27/22 08:03 BUN 5 mg/dL (7-17) L 03/27/22 08:03 Creatinine 0.6 mg/dL (0.6-1.2) 03/27/22 08:03 Estimated GFR > 60 ml/min 03/27/22 08:03 BUN/Creatinine Ratio 8 % 03/27/22 08:03 Glucose 338 mg/dL (65-100) H 03/27/22 08:03 POC Glucose 356 mg/dL (70-105) H 03/27/22 08:07 Calcium 8.8 mg/dL (8.4-10.2) 03/27/22 08:03 Magnesium 2.00 mg/dL (1.7-2.3) 03/26/22 21: Total Bilirubin 0.70 mg/dL (0.1-1.2) 03/26/22 12:51 AST 12 units/L (5-40) 03/26/22 12:51 ALT 9 units/L (7-56) 03/26/22 12:51 Alkaline Phosphatase 112 units/L (35-129) 03/26/22 12:51 Total Creatine Kinase 56 units/L (30-135) 03/26/22 21:23 C-Reactive Protein 3.90 mg/dL (0.00-1.30) H 03/26/22 21:23 Total Protein 10.0 g/dL (6.3-8.2) H 03/26/22 12:51 Albumin 4.9 g/dL (3.9-5) 03/26/22 12:51 Albumin/Globulin Ratio 1.0 % 03/26/22 12:51 HCG, Quant < 2 mIU/mL (0-4) 03/26/22 21:23 Urine Color Straw (Yellow) 03/26/22 Unknown Urine Turbidity Clear (Clear) 03/26/22 Unknown Urine pH 6.0 (5.0-7.0) 03/26/22 Unknown Ur Specific [place] 1.010 (1.003-1.030) 03/26/22 Unknown Urine Protein <15 mg/dl mg/dL (Negative) 03/26/22 Unknown Urine Glucose (UA) Trace mg/dL (Negative) 03/26/22 Unknown Urine Ketones Trace mg/dL (Negative) 03/26/22 Unknown Urine Blood Trace (Negative) 03/26/22 Unknown Urine Nitrite Negative (Negative) 03/26/22 Unknown Ur Reducing Substances Not Reportable 03/26/22 Unknown Urine Bilirubin Negative (Negative) 03/26/22 Unknown Urine Ictotest Not Reportable 03/26/22 Unknown Urine Urobilinogen < 2.0 mg/dL (<2.0) 03/26/22 Unknown Ur Leukocyte Esterase Trace (Negative) 03/26/22 Unknown Urine WBC (Auto) 48.0 /HPF (0.0-6.0) H 03/26/22 Unknown Urine RBC (Auto) 7.0 /HPF (0.0-6.0) 03/26/22 Unknown U Epithel Cells (Auto) 5.0 /HPF (0-13.0) 03/26/22 Unknown Urine Mucus Few /HPF 03/26/22 Unknown Urine Yeast (Budding) Few /HPF 03/26/22 Unknown Microbiology: Microbiology 03/26/22 21:23 Peripheral/Venous Blood Culture - Preliminary Culture in Progress 03/26/22 21:23 Peripheral/Venous Blood Culture - Preliminary Culture in Progress [place]go/IV: Voiding Method Toilet Active Medications - Current Medications Current Medications: Generic Name Dose Route Start Last Admin Trade Name Freq PRN Reason Stop Dose Admin Acetaminophen 650 mg 03/26/22 22:22 Acetaminophen 325 Mg Tab PO Q4H PRN Pain MILD(1-3)/Fever >100.5/RICH Atorvastatin Calcium 40 mg 03/27/22 22:00 Atorvastatin 40 Mg Tab PO QHS JULIENNE Dextrose 50 ml 03/26/22 22:22 Dextrose 50% In Water (25gm) 50 Ml Syringe IV Q30MIN PRN Hypoglycemia Protocol Famotidine 20 mg 03/27/22 10:00 03/27/22 09:22 Famotidine 20 Mg Tab PO 20 mg BID JULIENNE Administration Gabapentin 100 mg 03/27/22 08:00 03/27/22 09:22 Gabapentin 100 Mg Cap PO 100 mg Q8HR JULIENNE Administration Hydrochlorothiazide 12.5 mg 03/27/22 10:00 03/27/22 09:22 Hydrochlorothiazide 12.5 Mg Cap PO 12.5 mg QDAY JULIENNE Administration Sodium Chloride 1,000 mls @ 125 mls/hr 03/26/22 22:30 03/27/22 02:11 Nacl 0.9% 1000 Ml IV 125 mls/hr DIRECT JULIENNE Administration Piperacillin Sod/Tazobactam Sod 4.5 gm in 100 mls @ 200 mls/hr 03/26/22 23:00 03/27/22 09:24 Zosyn/Ns 4.5gm/100ml IV 200 mls/hr Q8H JULIENNE Administration Protocol Vancomycin HCl 1,250 mg/ 275 mls @ 166.667 mls/hr 03/27/22 18:00 Sodium Chloride IV Q12H JULIENNE Insulin Human Lispro 0 unit 03/27/22 07:30 03/27/22 09:23 Insulin Lispro 100 Unit/Ml SUB-Q 10 unit ACHS JULIENNE Administration Protocol Lisinopril 10 mg 03/27/22 10:00 03/27/22 09:22 Lisinopril 10 Mg Tab PO 10 mg DAILY JULIENNE Administration Magnesium Hydroxide 30 ml 03/26/22 22:22 Magnesium Hydroxide (Mom) Oral Liqd Udc PO Q4H PRN Constipation Morphine Sulfate 2 mg 03/26/22 22:22 03/27/22 05:51 Morphine 2 Mg/1 Ml Inj IV 2 mg Q4H PRN Administration Pain, Moderate (4-6) Morphine Sulfate 4 mg 03/26/22 22:22 03/27/22 02:07 Morphine 4 Mg/1 Ml Inj IV 4 mg Q4H PRN Administration Pain , Severe (7-10) Ondansetron HCl 4 mg 03/26/22 22:22 Ondansetron 4 Mg/2 Ml Inj IV Q8H PRN Nausea And Vomiting Sodium Chloride 10 ml 03/27/22 10:00 03/27/22 09:23 Sodium Chloride 0.9% 10 Ml Flush Syringe IV 10 ml BID JULIENNE Administration Sodium Chloride 10 ml 03/26/22 22:22 Sodium Chloride 0.9% 10 Ml Flush Syringe IV PRN PRN LINE FLUSH
[2022-03-27] MEDS ORDERED: FLUCONAZOLE 100 MG TAB PO NR (10:00)
[2022-03-27] MEDS ORDERED: INSULIN GLARGINE 100 UNITS/ML SUB-Q SCH ×2 (10:00→22:00)
[2022-03-27] MEDS ORDERED: ALPRAZolam 0.25 MG TAB PO SCH (10:00)
--- NOTE | 2022-03-27 13:28 | Consultation ---
History of Present Illness Consult date: 03/27/22 Chief complaint: left foot wound - History of present illness History of present illness: 47 yo G with hx of poorly controlled DM, neuropathy who presents to ER with increasing pain and swelling of left foot. Patient states she lives in [place] and recently underwent amputation of distal left great toe and inpatient treatment for foot infection in January 2022. She states she was discharged with antibiotics but did not take any because she was discharged with too many medications. She has been told she needs to be on insulin as outpatient but states she has not been able to see crew leader. Patient states she did not follow up with surgeon who did amputation and stitches are still present in wound. Patient c/o calf pain that started a few days ago. No f/c. She states she is on xarelto for LE DVT - uncertain when this was diagnosed. Surgery is consulted because patient has a wound of the left great toe. Past History Past Medical History: acute CO, arthritis, COPD, diabetes, DVT, other (Asthma) Past Surgical History: PTCA, Other (L great toe distal amputation) Social history: smoking (Current daily smoker) Family history: no significant family history Medications and Allergies Allergies Allergy/AdvReac Type Severity Reaction Status Date / Time Iodine and Iodide Containing Allergy Unknown Verified 03/26/22 11:53 Produc tuberculin,PPD,multi-puncture Allergy Unknown Verified 03/26/22 11:53 Home Medications Medication Instructions Recorded Confirmed Last Taken Type Albuterol Mdi (or & Nicu Only) 2 puff IH QID PRN 01/06/22 03/27/22 02/16/22 History [ProAir HFA Inhaler] Clotrimazole 1% [Lotrimin 1%] 1 applic TP BID PRN 01/06/22 03/27/22 02/16/22 History Fluticasone/Salmeterol [Advair 2 puff INHALATION DAILY PRN 01/06/22 03/27/22 02/16/22 History Diskus 100-50 mcg] Mupirocin [Bactroban 2% OINT] 1 applic TP TID 01/06/22 03/27/22 03/26/22 History glipiZIDE [Glucotrol] 10 mg PO BID 01/06/22 03/27/22 03/25/22 History lisinopriL [Lisinopril] 10 mg PO DAILY 01/06/22 03/27/22 02/16/22 History metFORMIN [Glucophage] 500 mg PO DAILY 01/06/22 03/27/22 03/25/22 History AtorvaSTATin [Lipitor] 40 mg PO QHS #30 tablet 01/09/22 03/27/22 03/25/22 Rx ALPRAZolam [Xanax TAB] 0.25 mg PO BID PRN 03/27/22 03/27/22 03/25/22 History Active Meds: Active Medications Acetaminophen (Acetaminophen 325 Mg Tab) 650 mg PO Q4H PRN PRN Reason: Pain MILD(1-3)/Fever >100.5/RICH Alprazolam (Alprazolam 0.25 Mg Tab) 0.25 mg PO BID PRN PRN Reason: Anxiety Stop: 04/04/22 10:59 Atorvastatin Calcium (Atorvastatin 40 Mg Tab) 40 mg PO QHS JULIENNE Dextrose (Dextrose 50% In Water (25gm) 50 Ml Syringe) 50 ml IV Q30MIN PRN; Protocol PRN Reason: Hypoglycemia Famotidine (Famotidine 20 Mg Tab) 20 mg PO BID [facility] Last Admin: 03/27/22 09:22 Dose: 20 mg Gabapentin (Gabapentin 100 Mg Cap) 100 mg PO Q8HR JULIENNE Last Admin: 03/27/22 09:22 Dose: 100 mg Hydrochlorothiazide (Hydrochlorothiazide 12.5 Mg Cap) 12.5 mg PO QDAY [facility] Last Admin: 03/27/22 09:22 Dose: 12.5 mg Sodium Chloride (Nacl 0.9% 1000 Ml) 1,000 mls @ 125 mls/hr IV DIRECT [facility] Last Admin: 03/27/22 02:11 Dose: 125 mls/hr Piperacillin Sod/Tazobactam Sod (Zosyn/Ns 4.5gm/100ml) 4.5 gm in 100 mls @ 200 mls/hr IV Q8H [facility]; Protocol Last Admin: 03/27/22 09:24 Dose: 200 mls/hr Vancomycin HCl 1,250 mg/ (Sodium Chloride) 275 mls @ 166.667 mls/hr IV Q12H [facility] Insulin Glargine (Insulin Glargine 100 Units/Ml) 12 units SUB-Q QDAY [facility] Last Admin: 03/27/22 11:33 Dose: Not Given Insulin Human Lispro (Insulin Lispro 100 Unit/Ml) 0 unit SUB-Q ACHS [facility]; Protocol Last Admin: 03/27/22 11:38 Dose: 4 unit Lisinopril (Lisinopril 10 Mg Tab) 10 mg PO DAILY [facility] Last Admin: 03/27/22 09:22 Dose: 10 mg Magnesium Hydroxide (Magnesium Hydroxide (Mom) Oral Liqd Udc) 30 ml PO Q4H PRN PRN Reason: Constipation Morphine Sulfate (Morphine 2 Mg/1 Ml Inj) 2 mg IV Q4H PRN PRN Reason: Pain, Moderate (4-6) Last Admin: 03/27/22 05:51 Dose: 2 mg Morphine Sulfate (Morphine 4 Mg/1 Ml Inj) 4 mg IV Q4H PRN PRN Reason: Pain , Severe (7-10) Last Admin: 03/27/22 11:38 Dose: 4 mg Ondansetron HCl (Ondansetron 4 Mg/2 Ml Inj) 4 mg IV Q8H PRN PRN Reason: Nausea And Vomiting Sodium Chloride (Sodium Chloride 0.9% 10 Ml Flush Syringe) 10 ml IV BID [facility] Last Admin: 03/27/22 09:23 Dose: 10 ml Sodium Chloride (Sodium Chloride 0.9% 10 Ml Flush Syringe) 10 ml IV PRN PRN PRN Reason: LINE FLUSH Review of Systems All systems: negative (10 pt ros performed and negative except for that listed in hpi) Exam Vital Signs Pulse BP Pulse Ox 103 H 163/91 99 03/26/22 11:50 03/26/22 11:50 03/26/22 11:50 Narrative exam: Gen: AAOx3. NAD ENT: no scleral icterus or conjunctival pallor CV: S1, S2+ Resp: even and unlabored Ext: Unremarkable right leg - warm, no wounds. Left LLE cellulitis and pain from foot to mid calf. There is a faintly palpable DP pulse and cannot palpate PT. There is a wound at the lateral aspect of the great toe with minimal slough and mostly pink wound bed. No necrotic tissue. No drainage. Nylon sutures present. All stitches removed. Wound cleansed and alginate applied to wound bed. Covered with gauze and wrapped with kerlix. Results - Labs 03/27/22 08:03 03/27/22 08:03 Abnormal lab results 03/26/22 03/26/22 03/26/22 Range/Units 12:51 12:51 21:23 RBC 5.97 H (3.65-5.03) M/mm3 Hgb 16.1 H (10.1-14.3) gm/dl Hct 49.3 H (30.3-42.9) % MCH 27 L (28-32) pg RDW 17.7 H (13.2-15.2) % Brantley % (Auto) 9.0 H (0.0-7.3) % Seg Neutrophils % 71.2 H (40.0-70.0) % Sodium 133 L (137-145) mmol/L Chloride 92.7 L (98-107) mmol/L BUN (7-17) mg/dL Glucose 455 H (65-100) mg/dL POC Glucose (70-105) mg/dL Calcium 10.3 H (8.4-10.2) mg/dL C-Reactive Protein 3.90 H (0.00-1.30) mg/dL Total Protein 10.0 H (6.3-8.2) g/dL Urine WBC (Auto) (0.0-6.0) /HPF 03/26/22 03/26/22 03/27/22 Range/Units 23:25 Unknown 08:03 RBC (3.65-5.03) M/mm3 Hgb (10.1-14.3) gm/dl Hct (30.3-42.9) % MCH 27 L (28-32) pg RDW 17.1 H (13.2-15.2) % Brantley % (Auto) 10.2 H (0.0-7.3) % Seg Neutrophils % (40.0-70.0) % Sodium (137-145) mmol/L Chloride (98-107) mmol/L BUN (7-17) mg/dL Glucose (65-100) mg/dL POC Glucose 402 H (70-105) mg/dL Calcium (8.4-10.2) mg/dL C-Reactive Protein (0.00-1.30) mg/dL Total Protein (6.3-8.2) g/dL Urine WBC (Auto) 48.0 H (0.0-6.0) /HPF 03/27/22 03/27/22 03/27/22 Range/Units 08:03 08:07 11:34 RBC (3.65-5.03) M/mm3 Hgb (10.1-14.3) gm/dl Hct (30.3-42.9) % MCH (28-32) pg RDW (13.2-15.2) % Brantley % (Auto) (0.0-7.3) % Seg Neutrophils % (40.0-70.0) % Sodium 134 L (137-145) mmol/L Chloride (98-107) mmol/L BUN 5 L (7-17) mg/dL Glucose 338 H (65-100) mg/dL POC Glucose 356 H 270 H (70-105) mg/dL Calcium (8.4-10.2) mg/dL C-Reactive Protein (0.00-1.30) mg/dL Total Protein (6.3-8.2) g/dL Urine WBC (Auto) (0.0-6.0) /HPF Diabetes panel 03/26/22 03/27/22 Range/Units 12:51 08:03 Sodium 133 L 134 L (137-145) mmol/L Potassium 4.3 3.9 (3.6-5.0) mmol/L Chloride 92.7 L 99.6 (98-107) mmol/L Carbon Dioxide 23 23 (22-30) mmol/L BUN 8 5 L (7-17) mg/dL Creatinine 0.7 0.6 (0.6-1.2) mg/dL Glucose 455 H 338 H (65-100) mg/dL Calcium 10.3 H 8.8 (8.4-10.2) mg/dL AST 12 (5-40) units/L ALT 9 (7-56) units/L Alkaline Phosphatase 112 (35-129) units/L Total Protein 10.0 H (6.3-8.2) g/dL Albumin 4.9 (3.9-5) g/dL Calcium panel 03/26/22 03/27/22 Range/Units 12:51 08:03 Calcium 10.3 H 8.8 (8.4-10.2) mg/dL Albumin 4.9 (3.9-5) g/dL Pituitary panel 03/26/22 03/27/22 Range/Units 12:51 08:03 Sodium 133 L 134 L (137-145) mmol/L Potassium 4.3 3.9 (3.6-5.0) mmol/L Chloride 92.7 L 99.6 (98-107) mmol/L Carbon Dioxide 23 23 (22-30) mmol/L BUN 8 5 L (7-17) mg/dL Creatinine 0.7 0.6 (0.6-1.2) mg/dL Glucose 455 H 338 H (65-100) mg/dL Calcium 10.3 H 8.8 (8.4-10.2) mg/dL Adrenal panel 03/26/22 03/27/22 Range/Units 12:51 08:03 Sodium 133 L 134 L (137-145) mmol/L Potassium 4.3 3.9 (3.6-5.0) mmol/L Chloride 92.7 L 99.6 (98-107) mmol/L Carbon Dioxide 23 23 (22-30) mmol/L BUN 8 5 L (7-17) mg/dL Creatinine 0.7 0.6 (0.6-1.2) mg/dL Glucose 455 H 338 H (65-100) mg/dL Calcium 10.3 H 8.8 (8.4-10.2) mg/dL Total Bilirubin 0.70 (0.1-1.2) mg/dL AST 12 (5-40) units/L ALT 9 (7-56) units/L Alkaline Phosphatase 112 (35-129) units/L Total Protein 10.0 H (6.3-8.2) g/dL Albumin 4.9 (3.9-5) g/dL - Imaging Additional studies: CT LLE Assessment and Plan 47 yo F with 1. 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 poorly controlled DM - Last HbA1C 10.5 on 01/07/22 3. hx DVT on xarelto 4. noncompliance Plan: 1. Obtain arterial and venous duplex of LLE 2. Local wound care with alginate - orders placed 3. prn pain control 4. elevate LLE 5. IV abx 6. resume home anticoagulation 7. strict glucose control. 7. No acute surgical intervention at this time. Continue above medical management and observe for improvement in cellulitis. Thank you, please call with questions.
[2022-03-27] MEDS: RIVAROXABAN 10 MG TAB PO SCH (14:07)
[2022-03-27 14:30] LABS: Hematocrit 42.5 % (30.3-42.9); Hemoglobin 13.9 gm/dl (10.1-14.3); Mean Corpuscular HGB Conc 33 % (30-34); Mean Corpuscular Volume 82 fl (79-97); Platelet Count 298 K/mm3 (140-440); Red Blood Count 5.18 M/mm3 (3.65-5.03); Red Cell Distribution Width 16.9 % (13.2-15.2)
--- NOTE | 2022-03-27 15:21 | Vascular Lab Report ---
DUPLEX DOPPLER LOWER EXTREMITY ARTERIAL, LEFT INDICATION / CLINICAL INFORMATION: Non-healing great toe wound left. TECHNIQUE: Arterial duplex examination of the left lower extremity performed using B-mode, color flow and spectral Doppler assessment. FINDINGS: LEFT: Common Femoral Artery: PSV 123 cm/sec. Triphasic waveform. Proximal SFA: PSV 145 cm/sec. Triphasic waveform. Mid SFA: PSV 138 cm/sec. Triphasic waveform. Distal SFA: PSV 136 cm/sec. Triphasic waveform. Popliteal Artery: PSV 114 cm/sec. Triphasic waveform. Posterior Tibial Artery: PSV 97 cm/sec. Triphasic waveform. Dorsalis Pedis Artery: PSV 54 cm/sec. Monophasic waveform. ADDITIONAL FINDINGS: None. LEFT JESS: Not calculated. IMPRESSION: 1. Mild atherosclerotic plaque is noted throughout the left lower extremity. 2. Transition to monophasic waveform in the left dorsalis pedis artery suggests proximal stenosis. Ankle-Brachial Index (JESS): - Calcified arteries > 1.4 - Normal = 0.9-1.4 - Mild PAD = 0.7-0.89 - Moderate PAD = 0.51-0.69 - Severe PAD < 0.5 Doppler Waveform: - Triphasic is normal. - Biphasic is abnormal if clear transition from triphasic signal along vascular tree. - Monophasic is abnormal. Scribed by: Karla Farias RDMS, RVT, RMSKS Scribed: 03/27/2022 1:53 PM I have reviewed the images, agree with this report, and edited this report as needed. Signer Name: Leoncio Roque MD Signed: 03/27/2022 3:16 PM Workstation Name: [id number]
--- NOTE | 2022-03-27 16:18 | Vascular Lab Report ---
DUPLEX DOPPLER LOWER EXTREMITY VEINS, LEFT INDICATION / CLINICAL INFORMATION: calf pain, cellulitis, hx of blood clots. TECHNIQUE: Duplex doppler imaging was performed through the veins of the left lower extremity using v enous compression and other maneuvers. COMPARISON: None available. FINDINGS: LEFT COMMON FEMORAL VEIN: Negative. LEFT FEMORAL VEIN: Negative. LEFT POPLITEAL VEIN: Negative. LEFT CALF VEINS: Negative. ADDITIONAL FINDINGS: None. IMPRESSION: 1. No sonographic evidence for DVT in the left lower extremity. Scribed by: Karla Farias RDMS, KIMBER, VIKKI Scribed: 03/27/2022 2:49 PM I have reviewed the images, agree with this report, and edited this report as needed. Signer Name: Ruslan Krueger MD Signed: 03/27/2022 4:14 PM Workstation Name: [email or web address]
[2022-03-27] MEDS: VANCOMYCIN 1,250 MG in SODIUM CHLORIDE 0.9% 250ML 250 ML IV SCH (17:47)
[2022-03-27] MEDS: ACETAMINOPHEN 325 MG TAB PO PRN (21:59)
[2022-03-27] MEDS: ALPRAZolam 0.25 MG TAB PO PRN (21:59)
[2022-03-28] MEDS: SODIUM CHLORIDE 0.9% 1000 ML 1,000 ML IV SCH (04:29)
[2022-03-28] MEDS: ACETAMINOPHEN 325 MG TAB PO PRN ×2 (04:36→16:16)
[2022-03-28] MEDS: VANCOMYCIN 1,250 MG in SODIUM CHLORIDE 0.9% 250ML 250 ML IV SCH ×2 (05:18→18:19)
[2022-03-28] MEDS: GABAPENTIN 100 MG CAP PO SCH ×3 (05:18→22:12)
[2022-03-28 05:32] LABS: Blood Urea Nitrogen 6 mg/dL (7-17); Calcium 8.8 mg/dL (8.4-10.2); Hemolysis Index 7
[2022-03-28 05:40] LABS: BUN/Creatinine Ratio 9
[2022-03-28] MEDS: PIPERACIL/TAZOBACTA 4.5/NS 100 4.5 GM/100 ML VIAL IV SCH ×3 (09:16→23:02)
[2022-03-28] MEDS: INSULIN LISPRO 100 UNIT/ML SUB-Q SCH ×4 (09:16→22:12)
[2022-03-28] MEDS: FAMOTIDINE 20 MG TAB PO SCH ×2 (09:23→22:12)
[2022-03-28] MEDS: MORPHINE 4 MG/1 ML INJ IV PRN ×4 (09:23→23:45)
[2022-03-28] MEDS: hydroCHLOROthiazide 12.5 MG CAP PO SCH (09:23)
[2022-03-28] MEDS: LISINOPRIL 10 MG TAB PO SCH (09:23)
[2022-03-28] MEDS: RIVAROXABAN 10 MG TAB PO SCH (09:23)
--- NOTE | 2022-03-28 10:16 | Progress Note ---
Assessment and Plan 47 yo F with 1. 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 poorly controlled DM - Last HbA1C 10.5 on 01/07/22 3. hx DVT on xarelto 4. noncompliance Arterial ultrasound left lower extremity -transition from triphasic signals to monophasic to signal at the dorsalis pedis Venous duplex left lower extremity -no DVT Plan: 1. Obtain vascular surgery consultation 2. Local wound care with alginate - orders placed 3. prn pain control 4. elevate LLE 5. IV abx 6. strict glucose control. 7. No acute surgical intervention at this time. Continue above medical management and observe for improvement in cellulitis. May discharge when pain is better controlled. 8. Patient advised to follow-up in outpatient wound care center to ensure left toe wound is healing -[address] [place]. [address]. Patient may call [phone] for an appointment. Will sign off. Thank you, please call with questions. Subjective Date of service: 03/28/22 Narrative: Patient seen and examined. No acute complaints. States she has pain in her left foot and calf which is unchanged. T-max 100.6 yesterday afternoon. Afebrile since. Objective Vital Signs - 12hr 03/27/22 03/28/22 03/28/22 23:25 02:08 03:06 Temperature 99.5 F 98.6 F Pulse Rate 109 H 94 H Respiratory 16 16 Rate Blood Pressure 179/81 96/62 O2 Sat by Pulse 98 100 98 Oximetry 03/28/22 08:09 Temperature 97.1 F L Pulse Rate 87 Respiratory 20 Rate Blood Pressure 122/77 O2 Sat by Pulse 96 Oximetry - General physical appearance Narrative Exam: Gen: AAOx3. NAD ENT: no scleral icterus or conjunctival pallor CV: S1, S2+ Resp: even and unlabored Ext: Left LLE cellulitis and pain from foot to mid calf. Wound at the lateral aspect of the great toe with minimal slough and mostly pink wound bed. No necrotic tissue. No drainage. Wound cleansed and alginate applied to wound bed. Covered with gauze and secured with tape. - Labs 03/27/22 14:03 03/28/22 04:24 Diabetes panel 03/27/22 03/28/22 Range/Units 14:03 04:24 Sodium 134 L (137-145) mmol/L Potassium 4.1 (3.6-5.0) mmol/L Chloride 98.5 (98-107) mmol/L Carbon Dioxide 22 (22-30) mmol/L BUN 6 L (7-17) mg/dL Creatinine 0.7 0.7 (0.6-1.2) mg/dL Glucose 433 H (65-100) mg/dL Calcium 8.8 (8.4-10.2) mg/dL Calcium panel 03/28/22 Range/Units 04:24 Calcium 8.8 (8.4-10.2) mg/dL Pituitary panel 03/27/22 03/28/22 Range/Units 14:03 04:24 Sodium 134 L (137-145) mmol/L Potassium 4.1 (3.6-5.0) mmol/L Chloride 98.5 (98-107) mmol/L Carbon Dioxide 22 (22-30) mmol/L BUN 6 L (7-17) mg/dL Creatinine 0.7 0.7 (0.6-1.2) mg/dL Glucose 433 H (65-100) mg/dL Calcium 8.8 (8.4-10.2) mg/dL Adrenal panel 03/27/22 03/28/22 Range/Units 14:03 04:24 Sodium 134 L (137-145) mmol/L Potassium 4.1 (3.6-5.0) mmol/L Chloride 98.5 (98-107) mmol/L Carbon Dioxide 22 (22-30) mmol/L BUN 6 L (7-17) mg/dL Creatinine 0.7 0.7 (0.6-1.2) mg/dL Glucose 433 H (65-100) mg/dL Calcium 8.8 (8.4-10.2) mg/dL
[2022-03-28] MEDS: INSULIN GLARGINE 100 UNITS/ML SUB-Q SCH ×2 (10:29→22:11)
--- NOTE | 2022-03-28 11:40 | Progress Note ---
Assessment and Plan Assessment and plan: #Sepsis-improving #Cellulitis of the left foot #Diabetic foot ulcer -Tmax 100.6, HR improving -BCx 03/26: NGTD x 24hrs -continue vanc, zosyn for now -LLE arterial doppler abnormal; LLE venous doppler negative for DVT -tight glucose control to promote healing -General surgery consulted, signed off- patient can follow up in outpatient wound care clinic -Vascular surgery consulted by General surgery, assistance appreciated #Type II Diabetes Mellitus with hyperglycemia -will order A1C; patient reports A1C of 10% in December 2021 -takes metformin and glipizide outpatient; has previously used insulin but thought blood sugars were subjectively too low (in 80s) -continue SSI with accuchecks TID WM -lantus increased to 12U BID;will adjust and monitor as needed -goal glucose 140-180 #Right upper extremity swelling -RUE swelling after IV infiltrated, IV removed -warm compresses -if worsens, will consider venous doppler #Volume depletion-resolved -likely secondary to hyperglycemia -IVFs discontinued #UTI ruled out #Vulvar candidasis -UA shows WBC, but patient has no symptoms; urine culture pending -diflucan x1 #Hypertension -continue home BP medications -goal SBP <160 while inpatient #History of DVT -Patient currently taking Xarelto and unknown dose -continue Xarelto #History of COPD -controlled, patient not taking medications at home #Tobacco dependence #Tobacco cessation counseling -Smoking cessation counseling, supportive care, behavior change counseling, +15 minutes. -patient refused nicotine patch History Interval history: Patient reports infiltration of right upper extremity IV which has been removed. Patient is requesting supplementation with every meal. Pain in left lower extremity controlled. Updated about current care plan. She has no complaints at this time. Hospitalist Physical - Physical exam Narrative exam: GENERAL: Well-developed well-nourished. In no acute distress. HEENT: Normocephalic. Atraumatic. CHEST/LUNGS: CTAB on room air HEART/CARDIOVASCULAR: RRR. No murmur, rubs or gallops appreciated. ABDOMEN: +BS. NT/ND. SKIN: No rashes noted. NEURO: No focal motor deficit. Follows all commands. MUSCULOSKELETAL: No joint effusion EXTREMITIES: L foot bandage intact without drainage. Right upper extremity with mild edema. PSYCH: Cooperative. - Constitutional Vitals: Temp Pulse Resp BP Pulse Ox 97.1 F L 87 20 122/77 96 03/28/22 08:09 03/28/22 08:09 03/28/22 08:09 03/28/22 08:09 03/28/22 08:09 General appearance: Present: no acute distress, well-nourished Results - Labs CBC & Chem 7: 03/27/22 14:03 03/28/22 04:24 Labs: Laboratory Last Values WBC 8.3 K/mm3 (4.5-11.0) 03/27/22 14:03 RBC 5.18 M/mm3 (3.65-5.03) H 03/27/22 14:03 Hgb 13.9 gm/dl (10.1-14.3) 03/27/22 14:03 Hct 42.5 % (30.3-42.9) 03/27/22 14:03 MCV 82 fl (79-97) 03/27/22 14:03 MCH 27 pg (28-32) L 03/27/22 14:03 MCHC 33 % (30-34) 03/27/22 14:03 RDW 16.9 % (13.2-15.2) H 03/27/22 14:03 Plt Count 298 K/mm3 (140-440) 03/27/22 14:03 Lymph % (Auto) 18.8 % (13.4-35.0) 03/27/22 08:03 [place] % (Auto) 10.2 % (0.0-7.3) H 03/27/22 08:03 Eos % (Auto) 3.6 % (0.0-4.3) 03/27/22 08:03 Baso % (Auto) 1.1 % (0.0-1.8) 03/27/22 08:03 Lymph # (Auto) 1.5 K/mm3 (1.2-5.4) 03/27/22 08:03 [place] # (Auto) 0.8 K/mm3 (0.0-0.8) 03/27/22 08:03 Eos # (Auto) 0.3 K/mm3 (0.0-0.4) 03/27/22 08:03 Baso # (Auto) 0.1 K/mm3 (0.0-0.1) 03/27/22 08:03 Seg Neutrophils % 66.3 % (40.0-70.0) 03/27/22 08:03 Seg Neutrophils # 5.4 K/mm3 (1.8-7.7) 03/27/22 08:03 ESR 18 mm/Hr (0-20) 03/26/22 21:23 PT 13.1 Sec. (12.2-14.9) 03/26/22 21:23 INR 0.90 (0.87-1.13) 03/26/22 21:23 APTT 28.6 Sec. (24.2-36.6) 03/26/22 21:23 VBG pH 7.404 (7.320-7.420) 03/26/22 21:23 Sodium 134 mmol/L (137-145) L 03/28/22 04:24 Potassium 4.1 mmol/L (3.6-5.0) 03/28/22 04:24 Chloride 98.5 mmol/L (98-107) 03/28/22 04:24 Carbon Dioxide 22 mmol/L (22-30) 03/28/22 04:24 Anion Gap 18 mmol/L 03/28/22 04:24 BUN 6 mg/dL (7-17) L 03/28/22 04:24 Creatinine 0.7 mg/dL (0.6-1.2) 03/28/22 04:24 Estimated GFR > 60 ml/min 03/28/22 04:24 BUN/Creatinine Ratio 9 % 03/28/22 04:24 Glucose 433 mg/dL (65-100) H 03/28/22 04:24 POC Glucose 391 mg/dL (70-105) H 03/28/22 08:06 Calcium 8.8 mg/dL (8.4-10.2) 03/28/22 04:24 Magnesium 2.00 mg/dL (1.7-2.3) 03/26/22 21:23 Total Bilirubin 0.70 mg/dL (0.1-1.2) 03/26/22 12:51 AST 12 units/L (5-40) 03/26/22 12:51 ALT 9 units/L (7-56) 03/26/22 12:51 Alkaline Phosphatase 112 units/L (35-129) 03/26/22 12:51 Total Creatine Kinase 56 units/L (30-135) 03/26/22 21:23 C-Reactive Protein 3.90 mg/dL (0.00-1.30) H 03/26/22 21:23 Total Protein 10.0 g/dL (6.3-8.2) H 03/26/22 12:51 Albumin 4.9 g/dL (3.9-5) 03/26/22 12:51 Albumin/Globulin Ratio 1.0 % 03/26/22 12:51 HCG, Quant < 2 mIU/mL (0-4) 03/26/22 21:23 Urine Color Straw (Yellow) 03/26/22 Unknown Urine Turbidity Clear (Clear) 03/26/22 Unknown Urine pH 6.0 (5.0-7.0) 03/26/22 Unknown Ur Specific [place] 1.010 (1.003-1.030) 03/26/22 Unknown Urine Protein <15 mg/dl mg/dL (Negative) 03/26/22 Unknown Urine Glucose (UA) Trace mg/dL (Negative) 03/26/22 Unknown Urine Ketones Trace mg/dL (Negative) 03/26/22 Unknown Urine Blood Trace (Negative) 03/26/22 Unknown Urine Nitrite Negative (Negative) 03/26/22 Unknown Ur Reducing Substances Not Reportable 03/26/22 Unknown Urine Bilirubin Negative (Negative) 03/26/22 Unknown Urine Ictotest Not Reportable 03/26/22 Unknown Urine Urobilinogen < 2.0 mg/dL (<2.0) 03/26/22 Unknown Ur Leukocyte Esterase Trace (Negative) 03/26/22 Unknown Urine WBC (Auto) 48.0 /HPF (0.0-6.0) H 03/26/22 Unknown Urine RBC (Auto) 7.0 /HPF (0.0-6.0) 03/26/22 Unknown U Epithel Cells (Auto) 5.0 /HPF (0-13.0) 03/26/22 Unknown Urine Mucus Few /HPF 03/26/22 Unknown Urine Yeast (Budding) Few /HPF 03/26/22 Unknown Microbiology: Microbiology 03/26/22 21:23 Peripheral/Venous Blood Culture - Preliminary NO GROWTH AFTER 24 HOURS 03/26/22 21:23 Peripheral/Venous Blood Culture - Preliminary NO GROWTH AFTER 24 HOURS [place]/IV: Voiding Method Toilet Active Medications - Current Medications Current Medications: Generic Name Dose Route Start Last Admin Trade Name Freq PRN Reason Stop Dose Admin Acetaminophen 650 mg 03/26/22 22:22 03/28/22 04:36 Acetaminophen 325 Mg Tab PO 650 mg Q4H PRN Administration Pain MILD(1-3)/Fever >100.5/RICH Alprazolam 0.25 mg 03/27/22 11:00 03/27/22 21:59 Alprazolam 0.25 Mg Tab PO 04/04/22 10:59 0.25 mg BID PRN Administration Anxiety Atorvastatin Calcium 40 mg 03/27/22 22:00 03/27/22 21:59 Atorvastatin 40 Mg Tab PO 40 mg QHS JULIENNE Administration Dextrose 50 ml 03/26/22 22:22 Dextrose 50% In Water (25gm) 50 Ml Syringe IV Q30MIN PRN Hypoglycemia Protocol Famotidine 20 mg 03/27/22 10:00 03/28/22 09:23 Famotidine 20 Mg Tab PO 20 mg BID JULIENNE Administration Gabapentin 100 mg 03/27/22 08:00 03/28/22 05:18 Gabapentin 100 Mg Cap PO 100 mg Q8HR JULIENNE Administration Hydrochlorothiazide 12.5 mg 03/27/22 10:00 03/28/22 09:23 Hydrochlorothiazide 12.5 Mg Cap PO 12.5 mg QDAY JULIENNE Administration Sodium Chloride 1,000 mls @ 125 mls/hr 03/26/22 22:30 03/28/22 04:29 Nacl 0.9% 1000 Ml IV 125 mls/hr DIRECT JULIENNE Administration Piperacillin Sod/Tazobactam Sod 4.5 gm in 100 mls @ 200 mls/hr 03/26/22 23:00 03/28/22 09:16 Zosyn/Ns 4.5gm/100ml IV 200 mls/hr Q8H JULIENNE Administration Protocol Vancomycin HCl 1,250 mg/ 275 mls @ 166.667 mls/hr 03/27/22 18:00 03/28/22 05:18 Sodium Chloride IV 166.667 mls/hr Q12H JULIENNE Administration Insulin Glargine 12 units 03/28/22 10:00 03/28/22 10:29 Insulin Glargine 100 Units/Ml SUB-Q 12 units BID JULIENNE Administration Insulin Human Lispro 0 unit 03/27/22 07:30 03/28/22 09:16 Insulin Lispro 100 Unit/Ml SUB-Q 10 unit ACHS JULIENNE Administration Protocol Lisinopril 10 mg 03/27/22 10:00 03/28/22 09:23 Lisinopril 10 Mg Tab PO 10 mg DAILY JULIENNE Administration Magnesium Hydroxide 30 ml 03/26/22 22:22 Magnesium Hydroxide (Mom) Oral Liqd Udc PO Q4H PRN Constipation Morphine Sulfate 2 mg 03/26/22 22:22 03/27/22 05:51 Morphine 2 Mg/1 Ml Inj IV 2 mg Q4H PRN Administration Pain, Moderate (4-6) Morphine Sulfate 4 mg 03/26/22 22:22 03/28/22 09:23 Morphine 4 Mg/1 Ml Inj IV 4 mg Q4H PRN Administration Pain , Severe (7-10) Ondansetron HCl 4 mg 03/26/22 22:22 Ondansetron 4 Mg/2 Ml Inj IV Q8H PRN Nausea And Vomiting Rivaroxaban 10 mg 03/27/22 15:00 03/28/22 09:23 Rivaroxaban 10 Mg Tab PO 10 mg QDAY JULIENNE Administration Protocol Sodium Chloride 10 ml 03/27/22 10:00 03/28/22 09:23 Sodium Chloride 0.9% 10 Ml Flush Syringe IV 10 ml BID JULIENNE Administration Sodium Chloride 10 ml 03/26/22 22:22 Sodium Chloride 0.9% 10 Ml Flush Syringe IV PRN PRN LINE FLUSH Nutrition/Malnutrition Assess - Dietary Evaluation Nutrition/Malnutrition Findings: Nutrition Notes Start: 03/27/22 14:38 Freq: Status: Active Protocol: Document 03/27/22 14:38 NEGAR (Rec: 03/27/22 14:59 NEGAR [id number]) Nutrition Notes Need for Assessment generated from: MD Order,Education Initial or Follow up Assessment Current Diagnosis COPD,Diabetes,Hypertension Other Pertinent Diagnosis CHF, DVT/L-Foot Cellulitis, UTI. Current Diet Cardiac/Consistent Carbohydrates Diet (since B ). Labs/Tests 03/27: Na 134, BUN 5, Glu 338, HbA1c 10.5%. Pertinent Medications 03/27: Humalog 4U, others nutritionally unremarkable. 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 Weight Status Obese Subjective/Other Information RD consult for dietary supplementation and nutrition education assessments. No reports available on Pt's PO intake of meals at the time , will assess at F/U; I will not prescribe Dietary Supplementation at this time, since it does not seems necessary, I will reassess at F/U. Pt is on Room Air, O2 saturation @ 98%, according to Physical Assessment History notes. Pt presents L-Foot Cellulitis, and s/p first toe amputation, according to Progress notes. Pt still in critical condition , not a candidate for Nutrition Education at the time, will assess feasibility on F/U. Percent of energy/protein needs met: Prescribed Cardiac/Consistent Carbohydrates Diet provides for energy/protein needs (1, 977 Kcal/86 g) during LOS. Burn Absent Trauma Absent GI Symptoms None Food Allergy No Skin Integrity/Comment L-Foot cellulitis. 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 Is patient on ventilator? No Is Patient Ambulatory and/or Out of Bed Yes REE-([facility]-ambulatory/OOB) [ 1998.478 [id number]] Kcal/Kg value to use for calculation 17 Approximate Energy Requirements Using 1542 kcal/Kg Calculation Used for Recommendations Kcal/kg Additional Notes Protein: 1.25-1.5 g/Kg AdjBW; 93-111 g/day. Fluids: 1 ml/Kcal, or as per MD. Nutrition Intervention Change Diet Order: Continue Cardiac/Consistent Carbohydrates Diet. Follow-Up By: 04/03/22 Additional Comments Nutrition education will be provided at F/U, if feasible. Continue monitoring food tolerance, %PO intake of meals , and BM.
[2022-03-28] MEDS ORDERED: FLUCONAZOLE 100 MG TAB PO ONE (17:00)
--- NOTE | 2022-03-28 21:32 | Consultation ---
History of Present Illness - Reason for Consult Consult date: 03/29/22 Peripheral Vascular Disease with Left First Toe Infection Requesting physician: RO LU - History of Present Illness 47-year-old female with history of poorly controlled diabetes who presents to the emergency department complaints of left foot and calf pain. She also has complaints of drainage from a left toe wound. She states that she was first diagnosed with osteomyelitis of her left first toe several years ago and has been treated multiple times with antibiotics. In January she underwent what sounds like resection of the distal phalanx, for osteomyelitis, in [facility]. The patient admits that she did not return for follow-up care and presenting here with her jen still intact. She presented because she began to notice foul-smelling drainage from the wound. She also began having some pain in the foot as well as the calf and at some point she states she was diagnosed with a DVT and started on Xarelto. She has no additional complaints at this time. Past History Past Medical History: acute LA, arthritis, COPD, diabetes, DVT, other (Asthma) Past Surgical History: PTCA, Other (L great toe distal amputation) Social history: smoking (Current daily smoker) Family history: no significant family history Medications and Allergies Allergies Allergy/AdvReac Type Severity Reaction Status Date / Time Iodine and Iodide Containing Allergy Unknown Verified 03/26/22 11:53 Produc tuberculin,PPD,multi-puncture Allergy Unknown Verified 03/26/22 11:53 Home Medications Medication Instructions Recorded Confirmed Last Taken Type Albuterol Mdi (or & Nicu Only) 2 puff IH QID PRN 01/06/22 03/27/22 02/16/22 History [ProAir HFA Inhaler] Clotrimazole 1% [Lotrimin 1%] 1 applic TP BID PRN 01/06/22 03/27/22 02/16/22 History Fluticasone/Salmeterol [Advair 2 puff INHALATION DAILY PRN 01/06/22 03/27/22 02/16/22 History Diskus 100-50 mcg] Mupirocin [Bactroban 2% OINT] 1 applic TP TID 01/06/22 03/27/22 03/26/22 History glipiZIDE [Glucotrol] 10 mg PO BID 01/06/22 03/27/22 03/25/22 History lisinopriL [Lisinopril] 10 mg PO DAILY 01/06/22 03/27/22 02/16/22 History metFORMIN [Glucophage] 500 mg PO DAILY 01/06/22 03/27/22 03/25/22 History AtorvaSTATin [Lipitor] 40 mg PO QHS #30 tablet 01/09/22 03/27/22 03/25/22 Rx ALPRAZolam [Xanax TAB] 0.25 mg PO BID PRN 03/27/22 03/27/22 03/25/22 History Active Meds: Active Medications Acetaminophen (Acetaminophen 325 Mg Tab) 650 mg PO Q4H PRN PRN Reason: Pain MILD(1-3)/Fever >100.5/RICH Last Admin: 03/28/22 16:16 Dose: 650 mg Alprazolam (Alprazolam 0.25 Mg Tab) 0.25 mg PO BID PRN PRN Reason: Anxiety Stop: 04/04/22 10:59 Last Admin: 03/27/22 21:59 Dose: 0.25 mg Atorvastatin Calcium (Atorvastatin 40 Mg Tab) 40 mg PO QHS [facility] Last Admin: 03/27/22 21:59 Dose: 40 mg Dextrose (Dextrose 50% In Water (25gm) 50 Ml Syringe) 50 ml IV Q30MIN PRN; Protocol PRN Reason: Hypoglycemia Famotidine (Famotidine 20 Mg Tab) 20 mg PO BID [facility] Last Admin: 03/28/22 09:23 Dose: 20 mg Gabapentin (Gabapentin 100 Mg Cap) 100 mg PO Q8HR [facility] Last Admin: 03/28/22 13:51 Dose: 100 mg Hydrochlorothiazide (Hydrochlorothiazide 12.5 Mg Cap) 12.5 mg PO QDAY [facility] Last Admin: 03/28/22 09:23 Dose: 12.5 mg Piperacillin Sod/Tazobactam Sod (Zosyn/Ns 4.5gm/100ml) 4.5 gm in 100 mls @ 200 mls/hr IV Q8H [facility]; Protocol Last Admin: 03/28/22 16:15 Dose: 200 mls/hr Vancomycin HCl 1,250 mg/ (Sodium Chloride) 275 mls @ 166.667 mls/hr IV Q12H [facility] Last Admin: 03/28/22 18:19 Dose: 166.667 mls/hr Insulin Glargine (Insulin Glargine 100 Units/Ml) 12 units SUB-Q BID [facility] Last Admin: 03/28/22 10:29 Dose: 12 units Insulin Human Lispro (Insulin Lispro 100 Unit/Ml) 0 unit SUB-Q ACHS [facility]; Protocol Last Admin: 03/28/22 18:41 Dose: 4 unit Lisinopril (Lisinopril 10 Mg Tab) 10 mg PO DAILY [facility] Last Admin: 03/28/22 09:23 Dose: 10 mg Magnesium Hydroxide (Magnesium Hydroxide (Mom) Oral Liqd Udc) 30 ml PO Q4H PRN PRN Reason: Constipation Morphine Sulfate (Morphine 2 Mg/1 Ml Inj) 2 mg IV Q4H PRN PRN Reason: Pain, Moderate (4-6) Last Admin: 03/27/22 05:51 Dose: 2 mg Morphine Sulfate (Morphine 4 Mg/1 Ml Inj) 4 mg IV Q4H PRN PRN Reason: Pain , Severe (7-10) Last Admin: 03/28/22 18:19 Dose: 4 mg Ondansetron HCl (Ondansetron 4 Mg/2 Ml Inj) 4 mg IV Q8H PRN PRN Reason: Nausea And Vomiting Rivaroxaban (Rivaroxaban 10 Mg Tab) 10 mg PO QDAY [facility]; Protocol Last Admin: 03/28/22 09:23 Dose: 10 mg Sodium Chloride (Sodium Chloride 0.9% 10 Ml Flush Syringe) 10 ml IV BID [facility] Last Admin: 03/28/22 09:23 Dose: 10 ml Sodium Chloride (Sodium Chloride 0.9% 10 Ml Flush Syringe) 10 ml IV PRN PRN PRN Reason: LINE FLUSH Review of Systems All systems: negative Exam - Constitutional Vitals: Temp Pulse Resp BP Pulse Ox 99.1 F 85 18 100/66 100 03/28/22 20:00 03/28/22 20:00 03/28/22 20:00 03/28/22 20:00 03/28/22 20:00 General appearance: Present: no acute distress - Neck Neck: Present: supple - Respiratory Respiratory effort: normal - Cardiovascular Rhythm: regular - Extremities Extremities: pulses intact (Palpable left posterior tibial pulse) Extremity abnormal: ulceration (Ulceration of the medial aspect of the left first toe, minimal drainage noted at this time.), black (Dark discoloration of the entire left forefoot), pulses diminished (Nonpalpable dorsalis pedis pulses bilaterally, weakly palpable right posterior tibial pulse) Results - Labs CBC & Chem 7: 03/27/22 14:03 03/28/22 04:24 Labs: Abnormal lab results 03/28/22 03/28/22 03/28/22 Range/Units 04:24 08:06 12:08 Sodium 134 L (137-145) mmol/L BUN 6 L (7-17) mg/dL Glucose 433 H (65-100) mg/dL POC Glucose 391 H 167 H (70-105) mg/dL 03/28/22 03/28/22 Range/Units 17:58 21:10 Sodium (137-145) mmol/L BUN (7-17) mg/dL Glucose (65-100) mg/dL POC Glucose 234 H 302 H (70-105) mg/dL Assessment and Plan The patient is a 47-year-old female with a history of diabetes and osteomyelitis of her left first toe. We will recommend painting the ulcerated area with Betadine daily. Would likely benefit from an MRI to evaluate for osteomyelitis. Would likely benefit from a diagnostic angiogram, femoral wrist approach, to confirm that she has adequate arterial flow to heal her wounds lower any amputation if needed. I discussed this plan with the patient who expressed understanding and agrees.
[2022-03-28] MEDS: ALPRAZolam 0.25 MG TAB PO PRN (22:18)
[2022-03-29 04:56] LABS: Hematocrit 38.6 % (30.3-42.9); Hemoglobin 12.2 gm/dl (10.1-14.3); Mean Corpuscular HGB Conc 32 % (30-34); Mean Corpuscular Volume 83 fl (79-97); Platelet Count 330 K/mm3 (140-440); Red Blood Count 4.65 M/mm3 (3.65-5.03); Red Cell Distribution Width 16.5 % (13.2-15.2)
[2022-03-29] MEDS: GABAPENTIN 100 MG CAP PO SCH ×3 (04:59→21:19)
[2022-03-29] MEDS: VANCOMYCIN 1,250 MG in SODIUM CHLORIDE 0.9% 250ML 250 ML IV SCH ×3 (04:59→21:25)
[2022-03-29] MEDS: MORPHINE 4 MG/1 ML INJ IV PRN (05:00)
--- NOTE | 2022-03-29 08:24 | Progress Note ---
Assessment and Plan Assessment and plan: #Sepsis-improving #Cellulitis of the left foot #Diabetic foot ulcer -afebrile, HR improving -BCx 03/26: NGTD x 48hrs -continue vanc, zosyn for now -LLE arterial doppler abnormal; LLE venous doppler negative for DVT -LLE MRI ordered to rule out osteomyelitis -tight glucose control to promote healing -General surgery consulted, signed off- patient can follow up in outpatient [facility] -Vascular surgery following, assistance appreciated -plan for LLE angiography with possible revascularization early next week #Type II Diabetes Mellitus with hyperglycemia -will order A1C; patient reports A1C of 10% in December 2021 -takes metformin and glipizide outpatient; has previously used insulin but thought blood sugars were subjectively too low (in 80s) -continue SSI with accuchecks TID WM -lantus increased to 15U BID;will adjust and monitor as needed -goal glucose 140-180 #Right upper extremity swelling -RUE swelling after IV infiltrated, IV removed -warm compresses -RUE venous doppler ordered #Volume depletion-resolved -likely secondary to hyperglycemia -IVFs discontinued #UTI ruled out #Vulvar candidasis -UA shows WBC, but patient has no symptoms; urine culture pending -diflucan x1 #Hypertension -continue home BP medications -goal SBP <160 while inpatient #History of DVT -Patient currently taking Xarelto and unknown dose -continue Xarelto #History of COPD -controlled, patient not taking medications at home #Tobacco dependence #Tobacco cessation counseling -Smoking cessation counseling, supportive care, behavior change counseling, +15 minutes. -patient refused nicotine patch #Advanced care planning -Disease education conducted, care plan discussed, diagnoses discussed, prognosis discussed, and patient acknowledges understanding with care plan -Time: +30 min History Interval history: Patient reports infiltration of right upper extremity IV which has been removed. Patient is requesting supplementation with every meal. Pain in left lower extremity controlled. Updated about current care plan. She has no complaints at this time. Hospitalist Physical - Physical exam Narrative exam: GENERAL: Well-developed well-nourished. In no acute distress. HEENT: Normocephalic. Atraumatic. CHEST/LUNGS: CTAB on room air HEART/CARDIOVASCULAR: RRR. No murmur, rubs or gallops appreciated. ABDOMEN: +BS. NT/ND. SKIN: No rashes noted. NEURO: No focal motor deficit. Follows all commands. MUSCULOSKELETAL: No joint effusion EXTREMITIES: L foot bandage intact without drainage. Right upper extremity with mild edema. PSYCH: Cooperative. - Constitutional Vitals: Temp Pulse Resp BP Pulse Ox 97.9 F 92 H 18 140/85 99 03/29/22 07:53 03/29/22 07:53 03/29/22 07:53 03/29/22 07:53 03/29/22 07:53 General appearance: Present: no acute distress Results - Labs CBC & Chem 7: 03/29/22 04:10 03/28/22 04:24 Labs: Laboratory Last Values WBC 4.9 K/mm3 (4.5-11.0) 03/29/22 04:10 RBC 4.65 M/mm3 (3.65-5.03) 03/29/22 04:10 Hgb 12.2 gm/dl (10.1-14.3) 03/29/22 04:10 Hct 38.6 % (30.3-42.9) 03/29/22 04:10 MCV 83 fl (79-97) 03/29/22 04:10 MCH 26 pg (28-32) L 03/29/22 04:10 MCHC 32 % (30-34) 03/29/22 04:10 RDW 16.5 % (13.2-15.2) H 03/29/22 04:10 Plt Count 330 K/mm3 (140-440) 03/29/22 04:10 Lymph % (Auto) 18.8 % (13.4-35.0) 03/27/22 08:03 [place] % (Auto) 10.2 % (0.0-7.3) H 03/27/22 08:03 Eos % (Auto) 3.6 % (0.0-4.3) 03/27/22 08:03 Baso % (Auto) 1.1 % (0.0-1.8) 03/27/22 08:03 Lymph # (Auto) 1.5 K/mm3 (1.2-5.4) 03/27/22 08:03 Pender # (Auto) 0.8 K/mm3 (0.0-0.8) 03/27/22 08:03 Eos # (Auto) 0.3 K/mm3 (0.0-0.4) 03/27/22 08:03 Baso # (Auto) 0.1 K/mm3 (0.0-0.1) 03/27/22 08:03 Seg Neutrophils % 66.3 % (40.0-70.0) 03/27/22 08:03 Seg Neutrophils # 5.4 K/mm3 (1.8-7.7) 03/27/22 08:03 ESR 18 mm/Hr (0-20) 03/26/22 21:23 PT 13.1 Sec. (12.2-14.9) 03/26/22 21:23 INR 0.90 (0.87-1.13) 03/26/22 21:23 APTT 28.6 Sec. (24.2-36.6) 03/26/22 21:23 VBG pH 7.404 (7.320-7.420) 03/26/22 21:23 Sodium 134 mmol/L (137-145) L 03/28/22 04:24 Potassium 4.1 mmol/L (3.6-5.0) 03/28/22 04:24 Chloride 98.5 mmol/L (98-107) 03/28/22 04:24 Carbon Dioxide 22 mmol/L (22-30) 03/28/22 04:24 Anion Gap 18 mmol/L 03/28/22 04:24 BUN 6 mg/dL (7-17) L 03/28/22 04:24 Creatinine 0.7 mg/dL (0.6-1.2) 03/28/22 04:24 Estimated GFR > 60 ml/min 03/28/22 04:24 BUN/Creatinine Ratio 9 % 03/28/22 04:24 Glucose 433 mg/dL (65-100) H 03/28/22 04:24 POC Glucose 274 mg/dL (70-105) H 03/29/22 07:50 Calcium 8.8 mg/dL (8.4-10.2) 03/28/22 04:24 Magnesium 2.00 mg/dL (1.7-2.3) 03/26/22 21:23 Total Bilirubin 0.70 mg/dL (0.1-1.2) 03/26/22 12:51 AST 12 units/L (5-40) 03/26/22 12:51 ALT 9 units/L (7-56) 03/26/22 12:51 Alkaline Phosphatase 112 units/L (35-129) 03/26/22 12:51 Total Creatine Kinase 56 units/L (30-135) 03/26/22 21:23 C-Reactive Protein 3.90 mg/dL (0.00-1.30) H 03/26/22 21:23 Total Protein 10.0 g/dL (6.3-8.2) H 03/26/22 12:51 Albumin 4.9 g/dL (3.9-5) 03/26/22 12:51 Albumin/Globulin Ratio 1.0 % 03/26/22 12:51 HCG, Quant < 2 mIU/mL (0-4) 03/26/22 21:23 Urine Color Straw (Yellow) 03/26/22 Unknown Urine Turbidity Clear (Clear) 03/26/22 Unknown Urine pH 6.0 (5.0-7.0) 03/26/22 Unknown Ur Specific [place] 1.010 (1.003-1.030) 03/26/22 Unknown Urine Protein <15 mg/dl mg/dL (Negative) 03/26/22 Unknown Urine Glucose (UA) Trace mg/dL (Negative) 03/26/22 Unknown Urine Ketones Trace mg/dL (Negative) 03/26/22 Unknown Urine Blood Trace (Negative) 03/26/22 Unknown Urine Nitrite Negative (Negative) 03/26/22 Unknown Ur Reducing Substances Not Reportable 03/26/22 Unknown Urine Bilirubin Negative (Negative) 03/26/22 Unknown Urine Ictotest Not Reportable 03/26/22 Unknown Urine Urobilinogen < 2.0 mg/dL (<2.0) 03/26/22 Unknown Ur Leukocyte Esterase Trace (Negative) 03/26/22 Unknown Urine WBC (Auto) 48.0 /HPF (0.0-6.0) H 03/26/22 Unknown Urine RBC (Auto) 7.0 /HPF (0.0-6.0) 03/26/22 Unknown U Epithel Cells (Auto) 5.0 /HPF (0-13.0) 03/26/22 Unknown Urine Mucus Few /HPF 03/26/22 Unknown Urine Yeast (Budding) Few /HPF 03/26/22 Unknown Microbiology: Microbiology 03/26/22 21:23 Peripheral/Venous Blood Culture - Preliminary NO GROWTH AFTER 48 HOURS 03/26/22 21:23 Peripheral/Venous Blood Culture - Preliminary NO GROWTH AFTER 48 HOURS 03/26/22 Unknown Urine,Clean Catch Urine Culture - Preliminary [place]/IV: Voiding Method Toilet Active Medications - Current Medications Current Medications: Generic Name Dose Route Start Last Admin Trade Name Freq PRN Reason Stop Dose Admin Acetaminophen 650 mg 03/26/22 22:22 03/28/22 16:16 Acetaminophen 325 Mg Tab PO 650 mg Q4H PRN Administration Pain MILD(1-3)/Fever >100.5/RICH Alprazolam 0.25 mg 03/27/22 11:00 03/28/22 22:18 Alprazolam 0.25 Mg Tab PO 04/04/22 10:59 0.25 mg BID PRN Administration Anxiety Atorvastatin Calcium 40 mg 03/27/22 22:00 03/28/22 22:12 Atorvastatin 40 Mg Tab PO 40 mg QHS JULIENNE Administration Dextrose 50 ml 03/26/22 22:22 Dextrose 50% In Water (25gm) 50 Ml Syringe IV Q30MIN PRN Hypoglycemia Protocol Famotidine 20 mg 03/27/22 10:00 03/28/22 22:12 Famotidine 20 Mg Tab PO 20 mg BID JULIENNE Administration Gabapentin 100 mg 03/27/22 08:00 03/29/22 04:59 Gabapentin 100 Mg Cap PO 100 mg Q8HR JULIENNE Administration Hydrochlorothiazide 12.5 mg 03/27/22 10:00 03/28/22 09:23 Hydrochlorothiazide 12.5 Mg Cap PO 12.5 mg QDAY JULIENNE Administration Piperacillin Sod/Tazobactam Sod 4.5 gm in 100 mls @ 200 mls/hr 03/26/22 23:00 03/28/22 23:02 Zosyn/Ns 4.5gm/100ml IV 200 mls/hr Q8H JULIENNE Administration Protocol Vancomycin HCl 1,250 mg/ 275 mls @ 166.667 mls/hr 03/27/22 18:00 03/29/22 04:59 Sodium Chloride IV 166.667 mls/hr Q12H JULIENNE Administration Insulin Glargine 15 units 03/29/22 10:00 Insulin Glargine 100 Units/Ml SUB-Q BID [facility] Insulin Human Lispro 0 unit 03/27/22 07:30 06/10/22 22:12 Insulin Lispro 100 Unit/Ml SUB-Q 8 unit ACHS JULIENNE Administration Protocol Lisinopril 10 mg 03/27/22 10:00 03/28/22 09:23 Lisinopril 10 Mg Tab PO 10 mg DAILY JULIENNE Administration Magnesium Hydroxide 30 ml 03/26/22 22:22 Magnesium Hydroxide (Mom) Oral Liqd Udc PO Q4H PRN Constipation Morphine Sulfate 2 mg 03/26/22 22:22 03/27/22 05:51 Morphine 2 Mg/1 Ml Inj IV 2 mg Q4H PRN Administration Pain, Moderate (4-6) Morphine Sulfate 4 mg 03/26/22 22:22 03/29/22 05:00 Morphine 4 Mg/1 Ml Inj IV 4 mg Q4H PRN Administration Pain , Severe (7-10) Ondansetron HCl 4 mg 03/26/22 22:22 Ondansetron 4 Mg/2 Ml Inj IV Q8H PRN Nausea And Vomiting Rivaroxaban 10 mg 03/27/22 15:00 03/28/22 09:23 Rivaroxaban 10 Mg Tab PO 10 mg QDAY JULIENNE Administration Protocol Sodium Chloride 10 ml 03/27/22 10:00 03/28/22 22:13 Sodium Chloride 0.9% 10 Ml Flush Syringe IV 10 ml BID JULIENNE Administration Sodium Chloride 10 ml 03/26/22 22:22 Sodium Chloride 0.9% 10 Ml Flush Syringe IV PRN PRN LINE FLUSH Nutrition/Malnutrition Assess - Dietary Evaluation Nutrition/Malnutrition Findings: Nutrition Notes Start: 03/27/22 14:38 Freq: Status: Active Protocol: Document 03/27/22 14:38 NEGAR (Rec: 03/27/22 14:59 NEGAR [id number]) Nutrition Notes Need for Assessment generated from: MD Order,Education Initial or Follow up Assessment Current Diagnosis COPD,Diabetes,Hypertension Other Pertinent Diagnosis CHF, DVT/L-Foot Cellulitis, UTI. Current Diet Cardiac/Consistent Carbohydrates Diet (since B ). Labs/Tests 03/27: Na 134, BUN 5, Glu 338, HbA1c 10.5%. Pertinent Medications 03/27: Humalog 4U, others nutritionally unremarkable. Height 5 ft 5 in Weight 90.718 kg [place] Body Weight (kg) 56.81 BMI 33.3 Intake Prior to Admission Good Weight change and time frame Pt denies having loss body weight MANAGER DATA. Weight Status Obese Subjective/Other Information RD consult for dietary supplementation and nutrition education assessments. No reports available on Pt's PO intake of meals at the time , will assess at F/U; I will not prescribe Dietary Supplementation at this time, since it does not seems necessary, I will reassess at F/U. Pt is on Room Air, O2 saturation @ 98%, according to Physical Assessment History notes. Pt presents L-Foot Cellulitis, and s/p first toe amputation, according to Progress notes. Pt still in critical condition , not a candidate for Nutrition Education at the time, will assess feasibility on F/U. Percent of energy/protein needs met: Prescribed Cardiac/Consistent Carbohydrates Diet provides for energy/protein needs (1, 977 Kcal/86 g) during LOS. Burn Absent Trauma Absent GI Symptoms None Food Allergy No Skin Integrity/Comment L-Foot cellulitis. Minimum of two criteria No Fluid Accumulation N/A Reduced Animal Caretaker Strength N/A (non-severe) Protein-Calorie Malnutrition N\A #1 Nutrition Diagnosis No nutrition diagnosis at this time Comments: Will assess Pt's PO intake of meals and need for ONS at F/U. Is patient on ventilator? No Is Patient Ambulatory and/or Out of Bed Yes REE-([facility]-ambulatory/OOB) [ 1998.478 [id number]] Kcal/Kg value to use for calculation 17 Approximate Energy Requirements Using 1542 kcal/Kg Calculation Used for Recommendations Kcal/kg Additional Notes Protein: 1.25-1.5 g/Kg AdjBW; 93-111 g/day. Fluids: 1 ml/Kcal, or as per MD. Nutrition Intervention Change Diet Order: Continue Cardiac/Consistent Carbohydrates Diet. Follow-Up By: 04/03/22 Additional Comments Nutrition education will be provided at F/U, if feasible. Continue monitoring food tolerance, %PO intake of meals , and BM.
[2022-03-29] MEDS: INSULIN LISPRO 100 UNIT/ML SUB-Q SCH ×4 (08:32→21:20)
[2022-03-29] MEDS: INSULIN GLARGINE 100 UNITS/ML SUB-Q SCH ×2 (09:47→21:19)
[2022-03-29] MEDS: FAMOTIDINE 20 MG TAB PO SCH ×2 (09:47→21:19)
[2022-03-29] MEDS: hydroCHLOROthiazide 12.5 MG CAP PO SCH (09:47)
[2022-03-29] MEDS: LISINOPRIL 10 MG TAB PO SCH (09:48)
[2022-03-29] MEDS: RIVAROXABAN 10 MG TAB PO SCH (09:48)
[2022-03-29] MEDS: PIPERACIL/TAZOBACTA 4.5/NS 100 4.5 GM/100 ML VIAL IV SCH ×3 (09:50→23:19)
--- NOTE | 2022-03-29 09:53 | Progress Note ---
Assessment and Plan Patient underwent arterial duplex of her left lower extremity which demonstrates some tibial disease. Patient will need to undergo a diagnostic angiography on Thursday and potentially revascularization either Thursday or Thursday to allow adeq uate arterial inflow to heal her first toe. Patient is in agreement with this plan. Subjective Date of service: 03/29/22 Principal diagnosis: PVD with left first toe wound Interval history: Patient with history of surgical intervention to her left first toe and per patient what sounds like prior catheterization of her heart from a groin approach. Patient is poor historian and is uncertain if she is undergone angiography of her left leg. She has sequela of venous hypertension as well in the left leg with hemosiderin staining of the ankle. Objective - Constitutional Vitals: Vital Signs - 12hr 03/29/22 03/29/22 03/29/22 00:00 00:05 00:06 Temperature 98.5 F 98.2 F Pulse Rate 82 86 Respiratory 18 18 Rate Blood Pressure 142/89 Blood Pressure 142/89 [Left] O2 Sat by Pulse 99 100 100 Oximetry 03/29/22 03/29/22 03:17 07:53 Temperature 98.1 F 97.9 F Pulse Rate 80 92 H Respiratory 18 18 Rate Blood Pressure 134/83 140/85 Blood Pressure [Left] O2 Sat by Pulse 100 99 Oximetry General appearance: Present: no acute distress - EENT Eyes: EOM intact ENT: hearing intact - Neck Neck: supple, normal ROM - Respiratory Respiratory effort: normal - Breasts Breasts: deferred Extremities: abnormal - Gastrointestinal General gastrointestinal: Present: deferred Rectal Exam: deferred - Genitourinary Female genitourinary: deferred - Psychiatric Psychiatric: appropriate mood/affect, cooperative - Labs CBC & Chem 7: 03/29/22 04:10 03/28/22 04:24 Labs: Abnormal lab results 03/28/22 03/28/22 03/28/22 Range/Units 12:08 17:58 21:10 MCH (28-32) pg RDW (13.2-15.2) % POC Glucose 167 H 234 H 302 H (70-105) mg/dL 03/29/22 03/29/22 Range/Units 04:10 07:50 MCH 26 L (28-32) pg RDW 16.5 H (13.2-15.2) % POC Glucose 274 H (70-105) mg/dL Medications & Allergies - Medications Allergies/Adverse Reactions: Allergies Iodine and Iodide Containing Produc Allergy (Verified 03/26/22 11:53) Unknown tuberculin,PPD,multi-puncture Allergy (Verified 03/26/22 11:53) Unknown Home Medications: Home Medications Medication Instructions Recorded Confirmed Last Taken Type Albuterol Mdi (or & Nicu Only) 2 puff IH QID PRN 01/06/22 03/27/22 02/16/22 History [ProAir HFA Inhaler] Clotrimazole 1% [Lotrimin 1%] 1 applic TP BID PRN 01/06/22 03/27/22 02/16/22 History Fluticasone/Salmeterol [Advair 2 puff INHALATION DAILY PRN 01/06/22 03/27/22 02/16/22 History Diskus 100-50 mcg] Mupirocin [Bactroban 2% OINT] 1 applic TP TID 01/06/22 03/27/22 03/26/22 History glipiZIDE [Glucotrol] 10 mg PO BID 01/06/22 03/27/22 03/25/22 History lisinopriL [Lisinopril] 10 mg PO DAILY 01/06/22 03/27/22 02/16/22 History metFORMIN [Glucophage] 500 mg PO DAILY 01/06/22 03/27/22 03/25/22 History AtorvaSTATin [Lipitor] 40 mg PO QHS #30 tablet 01/09/22 03/27/22 03/25/22 Rx ALPRAZolam [Xanax TAB] 0.25 mg PO BID PRN 03/27/22 03/27/22 03/25/22 History Active Medications: Generic Name Dose Route Start Last Admin Trade Name Freq PRN Reason Stop Dose Admin Acetaminophen 650 mg 03/26/22 22:22 03/28/22 16:16 Acetaminophen 325 Mg Tab PO 650 mg Q4H PRN Administration Pain MILD(1-3)/Fever >100.5/RICH Alprazolam 0.25 mg 03/27/22 11:00 03/28/22 22:18 Alprazolam 0.25 Mg Tab PO 04/04/22 10:59 0.25 mg BID PRN Administration Anxiety Atorvastatin Calcium 40 mg 03/27/22 22:00 03/28/22 22:12 Atorvastatin 40 Mg Tab PO 40 mg QHS JULIENNE Administration Dextrose 50 ml 03/26/22 22:22 Dextrose 50% In Water (25gm) 50 Ml Syringe IV Q30MIN PRN Hypoglycemia Protocol Famotidine 20 mg 03/27/22 10:00 03/29/22 09:47 Famotidine 20 Mg Tab PO 20 mg BID JULIENNE Administration Gabapentin 100 mg 03/27/22 08:00 03/29/22 04:59 Gabapentin 100 Mg Cap PO 100 mg Q8HR JULIENNE Administration Hydrochlorothiazide 12.5 mg 03/27/22 10:00 03/29/22 09:47 Hydrochlorothiazide 12.5 Mg Cap PO 12.5 mg QDAY JULIENNE Administration Piperacillin Sod/Tazobactam Sod 4.5 gm in 100 mls @ 200 mls/hr 03/26/22 23:00 03/29/22 09:50 Zosyn/Ns 4.5gm/100ml IV 200 mls/hr Q8H JULIENNE Administration Protocol Vancomycin HCl 1,250 mg/ 275 mls @ 166.667 mls/hr 03/27/22 18:00 03/29/22 04:59 Sodium Chloride IV 166.667 mls/hr Q12H JULIENNE Administration Insulin Glargine 15 units 03/29/22 10:00 03/29/22 09:47 Insulin Glargine 100 Units/Ml SUB-Q 15 units BID JULIENNE Administration Insulin Human Lispro 0 unit 03/27/22 07:30 03/29/22 08:32 Insulin Lispro 100 Unit/Ml SUB-Q 6 unit ACHS JULIENNE Administration Protocol Lisinopril 10 mg 03/27/22 10:00 03/29/22 09:48 Lisinopril 10 Mg Tab PO 10 mg DAILY JULIENNE Administration Magnesium Hydroxide 30 ml 03/26/22 22:22 Magnesium Hydroxide (Mom) Oral Liqd Udc PO Q4H PRN Constipation Morphine Sulfate 2 mg 03/26/22 22:22 03/27/22 05:51 Morphine 2 Mg/1 Ml Inj IV 2 mg Q4H PRN Administration Pain, Moderate (4-6) Morphine Sulfate 4 mg 03/26/22 22:22 03/29/22 05:00 Morphine 4 Mg/1 Ml Inj IV 4 mg Q4H PRN Administration Pain , Severe (7-10) Ondansetron HCl 4 mg 03/26/22 22:22 Ondansetron 4 Mg/2 Ml Inj IV Q8H PRN Nausea And Vomiting Rivaroxaban 10 mg 03/27/22 15:00 03/29/22 09:48 Rivaroxaban 10 Mg Tab PO 10 mg QDAY JULIENNE Administration Protocol Sodium Chloride 10 ml 03/27/22 10:00 03/29/22 09:47 Sodium Chloride 0.9% 10 Ml Flush Syringe IV 10 ml BID JULIENNE Administration Sodium Chloride 10 ml 03/26/22 22:22 Sodium Chloride 0.9% 10 Ml Flush Syringe IV PRN PRN LINE FLUSH
[2022-03-29] MEDS: MORPHINE 2 MG/1 ML INJ IV PRN ×2 (12:08→19:13)
[2022-03-29] MEDS: ALPRAZolam 0.25 MG TAB PO PRN (16:56)
[2022-03-29] MEDS: CLOTRIMAZOLE/BETAMETHASONE CREAM 15 GM TP SCH ×2 (17:06→21:21)
[2022-03-30] MEDS: MORPHINE 2 MG/1 ML INJ IV PRN ×3 (02:22→14:23)
[2022-03-30] MEDS: GABAPENTIN 100 MG CAP PO SCH ×3 (05:47→21:17)
[2022-03-30] MEDS: VANCOMYCIN 1,250 MG in SODIUM CHLORIDE 0.9% 250ML 250 ML IV SCH ×2 (05:47→17:45)
[2022-03-30] MEDS: PIPERACIL/TAZOBACTA 4.5/NS 100 4.5 GM/100 ML VIAL IV SCH ×3 (06:00→23:31)
--- NOTE | 2022-03-30 07:24 | Progress Note ---
Assessment and Plan Assessment and plan: #Sepsis-improving #Cellulitis of the left foot #Diabetic foot ulcer -afebrile, HR improving -BCx 03/26: NGTD x 72hrs -continue vanc, zosyn for now -LLE arterial doppler abnormal; LLE venous doppler negative for DVT -LLE MRI ordered to rule out osteomyelitis -tight glucose control to promote healing -General surgery consulted, signed off- patient can follow up in outpatient [facility] clinic -Vascular surgery following, assistance appreciated -plan for LLE angiography with possible revascularization Thursday/Thursday #Type II Diabetes Mellitus with hyperglycemia -will order A1C; patient reports A1C of 10% in December 2021 -takes metformin and glipizide outpatient; has previously used insulin but thought blood sugars were subjectively too low (in 80s) -continue SSI with accuchecks TID WM -lantus increased to 20U BID;will adjust and monitor as needed -will restart glipizide -goal glucose 140-180 #Right upper extremity swelling -RUE swelling after IV infiltrated, IV removed -warm compresses -RUE venous doppler ordered #Volume depletion-resolved -likely secondary to hyperglycemia -IVFs discontinued #UTI ruled out #Vulvar candidasis -UA shows WBC, but patient has no symptoms; urine culture pending -diflucan x1 #Hypertension -continue home BP medications -goal SBP <160 while inpatient #History of DVT -Patient currently taking Xarelto and unknown dose -continue Xarelto #History of COPD -controlled, patient not taking medications at home #Tobacco dependence #Tobacco cessation counseling -Smoking cessation counseling, supportive care, behavior change counseling, +15 minutes. -patient refused nicotine patch #Advanced care planning -Disease education conducted, care plan discussed, diagnoses discussed, pro gnosis discussed, and patient acknowledges understanding with care plan -Time: +30 min History Interval history: No acute events overnight. Patient reports being satisfied with her care. Her pain is controlled at this time. Hospitalist Physical - Physical exam Narrative exam: GENERAL: Well-developed well-nourished. In no acute distress. HEENT: Normocephalic. Atraumatic. CHEST/LUNGS: CTAB on room air HEART/CARDIOVASCULAR: RRR. No murmur, rubs or gallops appreciated. ABDOMEN: +BS. NT/ND. NEURO: No focal motor deficit. Follows all commands. MUSCULOSKELETAL: No joint effusion EXTREMITIES: L foot bandage intact without drainage. Right upper extremity edema resolved. PSYCH: Cooperative. - Constitutional Vitals: Temp Pulse Resp BP Pulse Ox 99.2 F 118 H 20 150/78 100 03/30/22 04:10 03/30/22 04:10 03/29/22 21:20 03/29/22 15:04 03/30/22 04:10 General appearance: Present: no acute distress Results - Labs CBC & Chem 7: 03/29/22 04:10 03/28/22 04:24 Labs: Laboratory Last Values WBC 4.9 K/mm3 (4.5-11.0) 03/29/22 04:10 RBC 4.65 M/mm3 (3.65-5.03) 03/29/22 04:10 Hgb 12.2 gm/dl (10.1-14.3) 03/29/22 04:10 Hct 38.6 % (30.3-42.9) 03/29/22 04:10 MCV 83 fl (79-97) 03/29/22 04:10 MCH 26 pg (28-32) L 03/29/22 04:10 MCHC 32 % (30-34) 03/29/22 04:10 RDW 16.5 % (13.2-15.2) H 03/29/22 04:10 Plt Count 330 K/mm3 (140-440) 03/29/22 04:10 Lymph % (Auto) 18.8 % (13.4-35.0) 03/27/22 08:03 Iron % (Auto) 10.2 % (0.0-7.3) H 03/27/22 08:03 Eos % (Auto) 3.6 % (0.0-4.3) 03/27/22 08:03 Baso % (Auto) 1.1 % (0.0-1.8) 03/27/22 08:03 Lymph # (Auto) 1.5 K/mm3 (1.2-5.4) 03/27/22 08:03 Iron # (Auto) 0.8 K/mm3 (0.0-0.8) 03/27/22 08:03 Eos # (Auto) 0.3 K/mm3 (0.0-0.4) 03/27/22 08:03 Baso # (Auto) 0.1 K/mm3 (0.0-0.1) 03/27/22 08:03 Seg Neutrophils % 66.3 % (40.0-70.0) 03/27/22 08:03 Seg Neutrophils # 5.4 K/mm3 (1.8-7.7) 03/27/22 08:03 ESR 18 mm/Hr (0-20) 03/26/22 21:23 PT 13.1 Sec. (12.2-14.9) 03/26/22 21:23 INR 0.90 (0.87-1.13) 03/26/22 21:23 APTT 28.6 Sec. (24.2-36.6) 03/26/22 21:23 VBG pH 7.404 (7.320-7.420) 03/26/22 21:23 Sodium 134 mmol/L (137-145) L 03/28/22 04:24 Potassium 4.1 mmol/L (3.6-5.0) 03/28/22 04:24 Chloride 98.5 mmol/L (98-107) 03/28/22 04:24 Carbon Dioxide 22 mmol/L (22-30) 03/28/22 04:24 Anion Gap 18 mmol/L 03/28/22 04:24 BUN 6 mg/dL (7-17) L 03/28/22 04:24 Creatinine 0.7 mg/dL (0.6-1.2) 03/28/22 04:24 Estimated GFR > 60 ml/min 03/28/22 04:24 BUN/Creatinine Ratio 9 % 03/28/22 04:24 Glucose 433 mg/dL (65-100) H 03/28/22 04:24 POC Glucose 247 mg/dL (70-105) H 03/29/22 21:11 Calcium 8.8 mg/dL (8.4-10.2) 03/28/22 04:24 Magnesium 2.00 mg/dL (1.7-2.3) 03/26/22 21:23 Total Bilirubin 0.70 mg/dL (0.1-1.2) 03/26/22 12:51 AST 12 units/L (5-40) 03/26/22 12:51 ALT 9 units/L (7-56) 03/26/22 12:51 Alkaline Phosphatase 112 units/L (35-129) 03/26/22 12:51 Total Creatine Kinase 56 units/L (30-135) 03/26/22 21:23 C-Reactive Protein 3.90 mg/dL (0.00-1.30) H 03/26/22 21:23 Total Protein 10.0 g/dL (6.3-8.2) H 03/26/22 12:51 Albumin 4.9 g/dL (3.9-5) 03/26/22 12:51 Albumin/Globulin Ratio 1.0 % 03/26/22 12:51 HCG, Quant < 2 mIU/mL (0-4) 03/26/22 21:23 Urine Color Straw (Yellow) 03/26/22 Unknown Urine Turbidity Clear (Clear) 03/26/22 Unknown Urine pH 6.0 (5.0-7.0) 03/26/22 Unknown Ur Specific [place] 1.010 (1.003-1.030) 03/26/22 Unknown Urine Protein <15 mg/dl mg/dL (Negative) 03/26/22 Unknown Urine Glucose (UA) Trace mg/dL (Negative) 03/26/22 Unknown Urine Ketones Trace mg/dL (Negative) 03/26/22 Unknown Urine Blood Trace (Negative) 03/26/22 Unknown Urine Nitrite Negative (Negative) 03/26/22 Unknown Ur Reducing Substances Not Reportable 03/26/22 Unknown Urine Bilirubin Negative (Negative) 03/26/22 Unknown Urine Ictotest Not Reportable 03/26/22 Unknown Urine Urobilinogen < 2.0 mg/dL (<2.0) 03/26/22 Unknown Ur Leukocyte Esterase Trace (Negative) 03/26/22 Unknown Urine WBC (Auto) 48.0 /HPF (0.0-6.0) H 03/26/22 Unknown Urine RBC (Auto) 7.0 /HPF (0.0-6.0) 03/26/22 Unknown U Epithel Cells (Auto) 5.0 /HPF (0-13.0) 03/26/22 Unknown Urine Mucus Few /HPF 03/26/22 Unknown Urine Yeast (Budding) Few /HPF 03/26/22 Unknown Vancomycin Trough 12.7 ug/mL (5.0-20.0) 03/29/22 18:40 Microbiology: Microbiology 03/26/22 21:23 Peripheral/Venous Blood Culture - Preliminary NO GROWTH AFTER 72 HOURS 03/26/22 21:23 Peripheral/Venous Blood Culture - Preliminary NO GROWTH AFTER 72 HOURS 03/26/22 Unknown Urine,Clean Catch Urine Culture - Final Verdugo/IV: Voiding Method Toilet Active Medications - Current Medications Current Medications: Generic Name Dose Route Start Last Admin Trade Name Freq PRN Reason Stop Dose Admin Acetaminophen 650 mg 03/26/22 22:22 03/28/22 16:16 Acetaminophen 325 Mg Tab PO 650 mg Q4H PRN Administration Pain MILD(1-3)/Fever >100.5/RICH Alprazolam 0.25 mg 03/27/22 11:00 03/29/22 16:56 Alprazolam 0.25 Mg Tab PO 04/04/22 10:59 0.25 mg BID PRN Administration Anxiety Atorvastatin Calcium 40 mg 03/27/22 22:00 03/29/22 21:19 Atorvastatin 40 Mg Tab PO 40 mg QHS JULIENNE Administration Clotrimazole 1 applic 03/29/22 18:00 03/29/22 21:21 Clotrimazole/Betamethasone Cream 15 Gm TP Not Given BID JULIENNE Dextrose 50 ml 03/26/22 22:22 Dextrose 50% In Water (25gm) 50 Ml Syringe IV Q30MIN PRN Hypoglycemia Protocol Famotidine 20 mg 03/27/22 10:00 03/29/22 21:19 Famotidine 20 Mg Tab PO 20 mg BID JULIENNE Administration Gabapentin 100 mg 03/27/22 08:00 03/30/22 05:47 Gabapentin 100 Mg Cap PO 100 mg Q8HR JULIENNE Administration Hydrochlorothiazide 12.5 mg 03/27/22 10:00 03/29/22 09:47 Hydrochlorothiazide 12.5 Mg Cap PO 12.5 mg QDAY JULIENNE Administration Piperacillin Sod/Tazobactam Sod 4.5 gm in 100 mls @ 200 mls/hr 03/26/22 23:00 03/29/22 23:19 Zosyn/Ns 4.5gm/100ml IV 200 mls/hr Q8H JULIENNE Administration Protocol Vancomycin HCl 1,250 mg/ 275 mls @ 166.667 mls/hr 03/27/22 18:00 03/30/22 05:47 Sodium Chloride IV 166.667 mls/hr Q12H JULIENNE Administration Insulin Glargine 20 units 03/29/22 23:47 Insulin Glargine 100 Units/Ml SUB-Q BID [facility] Insulin Human Lispro 0 unit 03/27/22 07:30 03/29/22 21:20 Insulin Lispro 100 Unit/Ml SUB-Q 4 unit ACHS JULIENNE Administration Protocol Lisinopril 10 mg 03/27/22 10:00 03/29/22 09:48 Lisinopril 10 Mg Tab PO 10 mg DAILY JULIENNE Administration Magnesium Hydroxide 30 ml 03/26/22 22:22 Magnesium Hydroxide (Mom) Oral Liqd Udc PO Q4H PRN Constipation Morphine Sulfate 2 mg 03/26/22 22:22 03/30/22 02:22 Morphine 2 Mg/1 Ml Inj IV 2 mg Q4H PRN Administration Pain, Moderate (4-6) Morphine Sulfate 4 mg 03/26/22 22:22 03/29/22 05:00 Morphine 4 Mg/1 Ml Inj IV 4 mg Q4H PRN Administration Pain , Severe (7-10) Ondansetron HCl 4 mg 03/26/22 22:22 Ondansetron 4 Mg/2 Ml Inj IV Q8H PRN Nausea And Vomiting Rivaroxaban 10 mg 03/27/22 15:00 03/29/22 09:48 Rivaroxaban 10 Mg Tab PO 10 mg QDAY JULIENNE Administration Protocol Sodium Chloride 10 ml 03/27/22 10:00 03/29/22 21:21 Sodium Chloride 0.9% 10 Ml Flush Syringe IV 10 ml BID JULIENNE Administration Sodium Chloride 10 ml 03/26/22 22:22 Sodium Chloride 0.9% 10 Ml Flush Syringe IV PRN PRN LINE FLUSH Nutrition/Malnutrition Assess - Dietary Evaluation Nutrition/Malnutrition Findings: Nutrition Notes Start: 03/27/22 14:38 Freq: Status: Active Protocol: Document 03/27/22 14:38 NEGAR (Rec: 03/27/22 14:59 NEGAR [id number]) Nutrition Notes Need for Assessment generated from: MD Order,Education Initial or Follow up Assessment Current Diagnosis COPD,Diabetes,Hypertension Other Pertinent Diagnosis CHF, DVT/L-Foot Cellulitis, UTI. Current Diet Cardiac/Consistent Carbohydrates Diet (since B ). Labs/Tests 03/27: Na 134, BUN 5, Glu 338, HbA1c 10.5%. Pertinent Medications 03/27: Humalog 4U, others nutritionally unremarkable. 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 Weight Status Obese Subjective/Other Information RD consult for dietary supplementation and nutrition education assessments. No reports available on Pt's PO intake of meals at the time , will assess at F/U; I will not prescribe Dietary Supplementation at this time, since it does not seems necessary, I will reassess at F/U. Pt is on Room Air, O2 saturation @ 98%, according to Physical Assessment History notes. Pt presents L-Foot Cellulitis, and s/p first toe amputation, according to Progress notes. Pt still in critical condition , not a candidate for Nutrition Education at the time, will assess feasibility on F/U. Percent of energy/protein needs met: Prescribed Cardiac/Consistent Carbohydrates Diet provides for energy/protein needs (1, 977 Kcal/86 g) during LOS. Burn Absent Trauma Absent GI Symptoms None Food Allergy No Skin Integrity/Comment L-Foot cellulitis. Minimum of two criteria No Fluid Accumulation N/A Reduced Inventory Coordinator Strength N/A (non-severe) Protein-Calorie Malnutrition N\A #1 Nutrition Diagnosis No nutrition diagnosis at this time Comments: Will assess Pt's PO intake of meals and need for ONS at F/U. Is patient on ventilator? No Is Patient Ambulatory and/or Out of Bed Yes REE-([facility]-ambulatory/OOB) [ 1998.478 [id number]] Kcal/Kg value to use for calculation 17 Approximate Energy Requirements Using 1542 kcal/Kg Calculation Used for Recommendations Kcal/kg Additional Notes Protein: 1.25-1.5 g/Kg AdjBW; 93-111 g/day. Fluids: 1 ml/Kcal, or as per MD. Nutrition Intervention Change Diet Order: Continue Cardiac/Consistent Carbohydrates Diet. Follow-Up By: 04/03/22 Additional Comments Nutrition education will be provided at F/U, if feasible. Continue monitoring food tolerance, %PO intake of meals , and BM.
[2022-03-30] MEDS: INSULIN LISPRO 100 UNIT/ML SUB-Q SCH ×4 (08:41→23:31)
[2022-03-30] MEDS: hydroCHLOROthiazide 12.5 MG CAP PO SCH (09:04)
[2022-03-30] MEDS: FAMOTIDINE 20 MG TAB PO SCH ×2 (09:04→21:16)
[2022-03-30] MEDS: CLOTRIMAZOLE/BETAMETHASONE CREAM 15 GM TP SCH (09:04)
[2022-03-30] MEDS: LISINOPRIL 10 MG TAB PO SCH (09:05)
[2022-03-30] MEDS: RIVAROXABAN 10 MG TAB PO SCH (09:05)
[2022-03-30] MEDS: INSULIN GLARGINE 100 UNITS/ML SUB-Q SCH ×2 (12:05→22:00)
[2022-03-30] MEDS: glipiZIDE 5 MG TAB PO SCH (21:16)
[2022-03-30] MEDS: ALPRAZolam 0.25 MG TAB PO PRN (21:17)
[2022-03-31 06:08] LABS: Hematocrit 38.3 % (30.3-42.9); Hemoglobin 12.4 gm/dl (10.1-14.3); Mean Corpuscular HGB Conc 32 % (30-34); Mean Corpuscular Volume 83 fl (79-97); Platelet Count 389 K/mm3 (140-440); Red Blood Count 4.64 M/mm3 (3.65-5.03); Red Cell Distribution Width 16.6 % (13.2-15.2)
[2022-03-31] MEDS: VANCOMYCIN 1,250 MG in SODIUM CHLORIDE 0.9% 250ML 250 ML IV SCH ×2 (06:21→17:29)
[2022-03-31 06:25] LABS: Blood Urea Nitrogen 12 mg/dL (7-17); Calcium 9.2 mg/dL (8.4-10.2); Hemolysis Index 9
[2022-03-31 06:31] LABS: BUN/Creatinine Ratio 20
[2022-03-31] MEDS: GABAPENTIN 100 MG CAP PO SCH ×3 (06:52→21:43)
[2022-03-31] MEDS: CLOTRIMAZOLE/BETAMETHASONE CREAM 15 GM TP SCH ×3 (07:45→22:05)
[2022-03-31] MEDS: INSULIN GLARGINE 100 UNITS/ML SUB-Q SCH (08:15)
[2022-03-31] MEDS: INSULIN LISPRO 100 UNIT/ML SUB-Q SCH ×4 (08:15→22:51)
[2022-03-31] MEDS: PIPERACIL/TAZOBACTA 4.5/NS 100 4.5 GM/100 ML VIAL IV SCH (08:15)
[2022-03-31] MEDS ORDERED: HEPARIN/NS 5000 UNIT/500ML 1,000 ML IR ONE (10:21)
[2022-03-31] MEDS ORDERED: LIDOCAINE 2%/EPINEPHRINE 1:200,000 VIAL (20 ML) INFILTRATI ONE (10:23)
--- NOTE | 2022-03-31 10:29 | Magnetic Resonance Report ---
MRI LEFT FOOT WITHOUT AND WITH CONTRAST INDICATION / CLINICAL INFORMATION: evaluate for osteomyelitis. TECHNIQUE: Multiplanar, multisequence MR images were obtained. Pre and postcontrast images of the lef t foot were obtained. Hindfoot not included in [id number]. COMPARISON: CT 03/26/2022 FINDINGS: BONES: There is increased T2 signal and decreased T1 signal involving the proximal phalanx of the gre at toe. The distal phalanx is amputated. There is a 2.1 x 0.6 cm collection at the distal aspect of t he proximal phalanx. There is a large soft tissue ulcer which extends down to the bone measuring at l east 1.4 cm. There is also edema in the proximal phalanx of the fifth toe with a nondisplaced fractur e. JOINTS: Mild DJD of great toe MTP joint and degenerative edema in the great toe sesamoids. 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 FLEXOR TENDONS: No significant abnormality. EXTENSOR TENDONS: No significant abnormality. PERONEAL TENDONS: No significant abnormality. LIGAMENTS: No significant abnormality. SOFT TISSUES: Soft tissue ulcer of great toe with enhancement of the tissues. Nonenhancing soft tissu e abscess. ADDITIONAL FINDINGS: None. IMPRESSION: 1. Acute osteomyelitis of the great toe proximal phalanx with soft tissue abscess and cellulitis. 2. Nondisplaced fracture of the proximal phalanx of fifth toe. No definite intra-articular extension. Report dictated by: Alfredo Meraz MD Report dictated on: 03/31/2022 9:04 AM I have reviewed the images, agree with this report, and edited this report as needed. Signer Name: Spencer Whitmore MD Signed: 03/31/2022 10:24 AM Workstation Name: [id number]
[2022-03-31] MEDS ORDERED: methylPREDNISolone Sod Succinate 125 MG/2 ML INJ IV NR (11:00)
[2022-03-31] MEDS ORDERED: SODIUM CHLORIDE 0.9% 500 ML 500 ML IV SCH (11:00)
[2022-03-31] MEDS ORDERED: FAMOTIDINE 20 MG/2 ML INJ IV ONE (11:00)
[2022-03-31] MEDS ORDERED: diphenhydrAMINE 50 MG/ML VIAL IV NR (11:02)
[2022-03-31] MEDS ORDERED: ceFAZolin/Water 2 GM/20 ML 2 GM/20 ML SYRINGE IV ONE (11:27)
--- NOTE | 2022-03-31 11:31 | Progress Note ---
Assessment and Plan Assessment and plan: #Sepsis-improving #Cellulitis of the left foot #Diabetic foot ulcer #Osteomyelitis of great left toe -afebrile, HR improving -BCx 03/26: NGTD x 72hrs -continue vanc, started cefepime and Flagyl. Zosyn discontinued -LLE arterial doppler abnormal; LLE venous doppler negative for DVT -LLE MRI shows Acute osteomyelitis of the great toe proximal phalanx with soft tissue abscess with cellulitis -angiogram today -tight glucose control to promote healing -General surgery consulted, signed off- patient can follow up in outpatient wound care clinic -Vascular surgery following, assistance appreciated -Infectious disease consulted for IV antibiotic recommendations #Type II Diabetes Mellitus with hyperglycemia -will order A1C; patient reports A1C of 10% in December 2021 -takes metformin and glipizide outpatient; has previously used insulin but thought blood sugars were subjectively too low (in 80s) -continue SSI with accuchecks TID WM -lantus increased to 24U BID;will adjust and monitor as needed -Continue glipizide -goal glucose 140-180 #Right upper extremity swelling -RUE swelling after IV infiltrated, IV removed -warm compresses -RUE venous doppler ordered #Volume depletion-resolved -likely secondary to hyperglycemia -IVFs discontinued #UTI ruled out #Vulvar candidasis -UA shows WBC, but patient has no symptoms; urine culture pending -diflucan x1 #Hypertension -continue home BP medications -goal SBP <160 while inpatient #History of DVT -Patient currently taking Xarelto and unknown dose -continue Xarelto #History of COPD -controlled, patient not taking medications at home #Tobacco dependence #Tobacco cessation counseling -Smoking cessation counseling, supportive care, behavior change counseling, +15 minutes. -patient refused nicotine patch #Advanced care planning -Disease education conducted, care plan discussed, diagnoses discussed, prognosis discussed, and patient acknowledges understanding with care plan -Time: +30 min History Interval history: No acute events overnight. Patient has no complaints at this time. We discussed her current updated care plan. Hospitalist Physical - Physical exam Narrative exam: GENERAL: Well-developed well-nourished. In no acute distress. HEENT: Normocephalic. Atraumatic. CHEST/LUNGS: CTAB on room air HEART/CARDIOVASCULAR: RRR. No murmur, rubs or gallops appreciated. ABDOMEN: +BS. NT/ND. NEURO: No focal motor deficit. Follows all commands. MUSCULOSKELETAL: No joint effusion EXTREMITIES: L foot bandage intact without drainage. Right upper extremity ed debbie resolved. PSYCH: Cooperative. - Constitutional Vitals: Temp Pulse Resp BP Pulse Ox 98.3 F 97 H 18 166/82 100 03/31/22 08:04 03/31/22 08:04 03/31/22 08:04 03/31/22 08:04 03/31/22 08:04 General appearance: Present: no acute distress Results - Labs CBC & Chem 7: 03/31/22 05:08 03/31/22 05:08 Labs: Laboratory Last Values WBC 6.1 K/mm3 (4.5-11.0) 03/31/22 05:08 RBC 4.64 M/mm3 (3.65-5.03) 03/31/22 05:08 Hgb 12.4 gm/dl (10.1-14.3) 03/31/22 05:08 Hct 38.3 % (30.3-42.9) 03/31/22 05:08 MCV 83 fl (79-97) 03/31/22 05:08 MCH 27 pg (28-32) L 03/31/22 05:08 MCHC 32 % (30-34) 03/31/22 05:08 RDW 16.6 % (13.2-15.2) H 03/31/22 05:08 Plt Count 389 K/mm3 (140-440) 03/31/22 05:08 Lymph % (Auto) 18.8 % (13.4-35.0) 03/27/22 08:03 Dukes % (Auto) 10.2 % (0.0-7.3) H 03/27/22 08:03 Eos % (Auto) 3.6 % (0.0-4.3) 03/27/22 08:03 Baso % (Auto) 1.1 % (0.0-1.8) 03/27/22 08:03 Lymph # (Auto) 1.5 K/mm3 (1.2-5.4) 03/27/22 08:03 Dukes # (Auto) 0.8 K/mm3 (0.0-0.8) 03/27/22 08:03 Eos # (Auto) 0.3 K/mm3 (0.0-0.4) 03/27/22 08:03 Baso # (Auto) 0.1 K/mm3 (0.0-0.1) 03/27/22 08:03 Seg Neutrophils % 66.3 % (40.0-70.0) 03/27/22 08:03 Seg Neutrophils # 5.4 K/mm3 (1.8-7.7) 03/27/22 08:03 ESR 18 mm/Hr (0-20) 03/26/22 21:23 PT 13.1 Sec. (12.2-14.9) 03/26/22 21:23 INR 0.90 (0.87-1.13) 03/26/22 21:23 APTT 28.6 Sec. (24.2-36.6) 03/26/22 21:23 VBG pH 7.404 (7.320-7.420) 03/26/22 21:23 Sodium 139 mmol/L (137-145) 03/31/22 05:08 Potassium 4.0 mmol/L (3.6-5.0) 03/31/22 05:08 Chloride 100.4 mmol/L (98-107) 03/31/22 05:08 Carbon Dioxide 26 mmol/L (22-30) 03/31/22 05:08 Anion Gap 17 mmol/L 03/31/22 05:08 BUN 12 mg/dL (7-17) 03/31/22 05:08 Creatinine 0.6 mg/dL (0.6-1.2) 03/31/22 05:08 Estimated GFR > 60 ml/min 03/31/22 05:08 BUN/Creatinine Ratio 20 % 03/31/22 05:08 Glucose 225 mg/dL (65-100) H 03/31/22 05:08 POC Glucose 263 mg/dL (70-105) H 03/31/22 08:03 Hemoglobin A1c 12.3 % (4-6) H 03/30/22 11:45 Calcium 9.2 mg/dL (8.4-10.2) 03/31/22 05:08 Magnesium 2.00 mg/dL (1.7-2.3) 03/26/22 21:23 Total Bilirubin 0.70 mg/dL (0.1-1.2) 03/26/22 12:51 AST 12 units/L (5-40) 03/26/22 12:51 ALT 9 units/L (7-56) 03/26/22 12:51 Alkaline Phosphatase 112 units/L (35-129) 03/26/22 12:51 Total Creatine Kinase 56 units/L (30-135) 03/26/22 21:23 C-Reactive Protein 3.90 mg/dL (0.00-1.30) H 03/26/22 21:23 Total Protein 10.0 g/dL (6.3-8.2) H 03/26/22 12:51 Albumin 4.9 g/dL (3.9-5) 03/26/22 12:51 Albumin/Globulin Ratio 1.0 % 03/26/22 12:51 HCG, Quant < 2 mIU/mL (0-4) 03/26/22 21:23 Urine Color Straw (Yellow) 03/26/22 Unknown Urine Turbidity Clear (Clear) 03/26/22 Unknown Urine pH 6.0 (5.0-7.0) 03/26/22 Unknown Ur Specific [place] 1.010 (1.003-1.030) 03/26/22 Unknown Urine Protein <15 mg/dl mg/dL (Negative) 03/26/22 Unknown Urine Glucose (UA) Trace mg/dL (Negative) 03/26/22 Unknown Urine Ketones Trace mg/dL (Negative) 03/26/22 Unknown Urine Blood Trace (Negative) 03/26/22 Unknown Urine Nitrite Negative (Negative) 03/26/22 Unknown Ur Reducing Substances Not Reportable 03/26/22 Unknown Urine Bilirubin Negative (Negative) 03/26/22 Unknown Urine Ictotest Not Reportable 03/26/22 Unknown Urine Urobilinogen < 2.0 mg/dL (<2.0) 03/26/22 Unknown Ur Leukocyte Esterase Trace (Negative) 03/26/22 Unknown Urine WBC (Auto) 48.0 /HPF (0.0-6.0) H 03/26/22 Unknown Urine RBC (Auto) 7.0 /HPF (0.0-6.0) 03/26/22 Unknown U Epithel Cells (Auto) 5.0 /HPF (0-13.0) 03/26/22 Unknown Urine Mucus Few /HPF 03/26/22 Unknown Urine Yeast (Budding) Few /HPF 03/26/22 Unknown Vancomycin Trough 12.7 ug/mL (5.0-20.0) 03/29/22 18:40 Microbiology: Microbiology 03/26/22 21:23 Peripheral/Venous Blood Culture - Preliminary NO GROWTH AFTER 4 DAYS 03/26/22 21:23 Peripheral/Venous Blood Culture - Preliminary NO GROWTH AFTER 4 DAYS Verdugo/IV: Voiding Method Toilet Active Medications - Current Medications Current Medications: Generic Name Dose Route Start Last Admin Trade Name Freq PRN Reason Stop Dose Admin Acetaminophen 650 mg 03/26/22 22:22 03/28/22 16:16 Acetaminophen 325 Mg Tab PO 650 mg Q4H PRN Administration Pain MILD(1-3)/Fever >100.5/RICH Alprazolam 0.25 mg 03/27/22 11:00 03/30/22 21:17 Alprazolam 0.25 Mg Tab PO 04/04/22 10:59 0.25 mg BID PRN Administration Anxiety Atorvastatin Calcium 40 mg 03/27/22 22:00 03/30/22 21:17 Atorvastatin 40 Mg Tab PO 40 mg QHS JULIENNE Administration Clotrimazole 1 applic 03/29/22 18:00 03/31/22 07:45 Clotrimazole/Betamethasone Cream 15 Gm TP Not Given BID JULIENNE Dextrose 50 ml 03/26/22 22:22 Dextrose 50% In Water (25gm) 50 Ml Syringe IV Q30MIN PRN Hypoglycemia Protocol Diphenhydramine HCl 25 mg 03/31/22 11:02 03/31/22 11:18 Diphenhydramine 50 Mg/Ml Vial IV 03/31/22 11:30 25 mg ONCE NR Administration Famotidine 20 mg 03/27/22 10:00 03/30/22 21:16 Famotidine 20 Mg Tab PO 20 mg BID JULIENNE Administration Gabapentin 100 mg 03/27/22 08:00 03/31/22 06:52 Gabapentin 100 Mg Cap PO Not Given Q8HR JULIENNE Glipizide 5 mg 03/30/22 22:00 03/30/22 21:16 Glipizide 5 Mg Tab PO 5 mg BID JULIENNE Administration Hydrochlorothiazide 12.5 mg 03/27/22 10:00 03/30/22 09:04 Hydrochlorothiazide 12.5 Mg Cap PO Not Given QDAY JULIENNE Piperacillin Sod/Tazobactam Sod 4.5 gm in 100 mls @ 200 mls/hr 03/26/22 23:00 03/31/22 08:15 Zosyn/Ns 4.5gm/100ml IV 200 mls/hr Q8H JULIENNE Administration Protocol Vancomycin HCl 1,250 mg/ 275 mls @ 166.667 mls/hr 03/27/22 18:00 03/31/22 06:21 Sodium Chloride IV 166.667 mls/hr Q12H JULIENNE Administration Sodium Chloride 500 mls @ 50 mls/hr 03/31/22 11:00 Nacl 0.9% 500 Ml IV DIRECT JULIENNE Insulin Glargine 24 units 03/31/22 22:00 Insulin Glargine 100 Units/Ml SUB-Q BID [facility] Insulin Human Lispro 0 unit 03/27/22 07:30 03/31/22 08:15 Insulin Lispro 100 Unit/Ml SUB-Q 6 unit ACHS JULIENNE Administration Protocol Lisinopril 10 mg 03/27/22 10:00 03/30/22 09:05 Lisinopril 10 Mg Tab PO 10 mg DAILY JULIENNE Administration Magnesium Hydroxide 30 ml 03/26/22 22:22 Magnesium Hydroxide (Mom) Oral Liqd Udc PO Q4H PRN Constipation Methylprednisolone Sodium Succinate 125 mg 03/31/22 11:00 03/31/22 11:18 Methylprednisolone Sod Succinate 125 Mg/2 Ml Inj IV 03/31/22 13:00 125 mg ONCE NR Administration Morphine Sulfate 2 mg 03/26/22 22:22 03/30/22 14:23 Morphine 2 Mg/1 Ml Inj IV 2 mg Q4H PRN Administration Pain, Moderate (4-6) Morphine Sulfate 4 mg 03/26/22 22:22 03/29/22 05:00 Morphine 4 Mg/1 Ml Inj IV 4 mg Q4H PRN Administration Pain , Severe (7-10) Ondansetron HCl 4 mg 03/26/22 22:22 Ondansetron 4 Mg/2 Ml Inj IV Q8H PRN Nausea And Vomiting Sodium Chloride 10 ml 03/27/22 10:00 03/30/22 21:17 Sodium Chloride 0.9% 10 Ml Flush Syringe IV 10 ml BID JULIENNE Administration Sodium Chloride 10 ml 03/26/22 22:22 Sodium Chloride 0.9% 10 Ml Flush Syringe IV PRN PRN LINE FLUSH Nutrition/Malnutrition Assess - Dietary Evaluation Nutrition/Malnutrition Findings: Nutrition Notes Start: 03/27/22 14:38 Freq: Status: Active Protocol: Document 03/27/22 14:38 NEGAR (Rec: 03/27/22 14:59 NEGAR [id number]) Nutrition Notes Need for Assessment generated from: MD Order,Education Initial or Follow up Assessment Current Diagnosis COPD,Diabetes,Hypertension Other Pertinent Diagnosis CHF, DVT/L-Foot Cellulitis, UTI. Current Diet Cardiac/Consistent Carbohydrates Diet (since B ). Labs/Tests 03/27: Na 134, BUN 5, Glu 338, HbA1c 10.5%. Pertinent Medications 03/27: Humalog 4U, others nutritionally unremarkable. 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 Weight Status Obese Subjective/Other Information RD consult for dietary supplementation and nutrition education assessments. No reports available on Pt's PO intake of meals at the time , will assess at F/U; I will not prescribe Dietary Supplementation at this time, since it does not seems necessary, I will reassess at F/U. Pt is on Room Air, O2 saturation @ 98%, according to Physical Assessment History notes. Pt presents L-Foot Cellulitis, and s/p first toe amputation, according to Progress notes. Pt still in critical condition , not a candidate for Nutrition Education at the time, will assess feasibility on F/U. Percent of energy/protein needs met: Prescribed Cardiac/Consistent Carbohydrates Diet provides for energy/protein needs (1, 977 Kcal/86 g) during LOS. Burn Absent Trauma Absent GI Symptoms None Food Allergy No Skin Integrity/Comment L-Foot cellulitis. Minimum of two criteria No Fluid Accumulation N/A Reduced Unit Nurse Strength N/A (non-severe) Protein-Calorie Malnutrition N\A #1 Nutrition Diagnosis No nutrition diagnosis at this time Comments: Will assess Pt's PO intake of meals and need for ONS at F/U. Is patient on ventilator? No Is Patient Ambulatory and/or Out of Bed Yes [facility] [ 1998.478 [id number]] Kcal/Kg value to use for calculation 17 Approximate Energy Requirements Using 1542 kcal/Kg Calculation Used for Recommendations Kcal/kg Additional Notes Protein: 1.25-1.5 g/Kg AdjBW; 93-111 g/day. Fluids: 1 ml/Kcal, or as per MD. Nutrition Intervention Change Diet Order: Continue Cardiac/Consistent Carbohydrates Diet. Follow-Up By: 04/03/22 Additional Comments Nutrition education will be provided at F/U, if feasible. Continue monitoring food tolerance, %PO intake of meals , and BM.
[2022-03-31] MEDS: MIDAZOLAM 2 MG/2 ML INJ ONE ×2 (11:41→11:48)
[2022-03-31] MEDS: fentaNYL 100 MCG/2 ML INJ ONE ×2 (11:41→11:47)
[2022-03-31] MEDS: HEPARIN 10,000 UNITS/10 ML VIAL ONE ×2 (11:52→12:47)
--- NOTE | 2022-03-31 12:28 | Operative Report ---
Operative Report Operative Report: EXAM: 1. Ultrasound-guided access of the right common femoral artery. 2. Angiography of the right lower extremity. 3. Selection of the abdominal aorta with angiography. 3. Selection of the left external iliac artery, left superficial femoral artery, and the left popliteal artery with angiography of the left lower extremity 4. Closure of the right common femoral artery with a 6 Ecu[place]orean Pro style DATE: 03/31/2022 SALVAGE CLERK: ASA GOODEN MD INDICATION: Abnormal arterial duplex with left first digit chronic ulceration concerning for osteomyelitis. MEDICATIONS: Please see nursing report for full details. DEVICES: None CONTRAST: Please see Stove Fitter report for full details PROCEDURE: The risks, benefits, and alternatives were discussed with the patient; written informed consent was obtained. The patient was brought to the angiography suite and her groins were prepped and draped in a sterile fashion. The right common femoral artery was evaluated with ultrasound was patent. Under direct ultrasound guidance, the right common femoral artery was accessed with a 21-gauge micropuncture needle. 0.018 inch wire was passed into the aorta. Needle was exchanged for transitional dilator. Wire was exchanged for 0.035 inch wire. Transitional dilator was exchanged for 5 Ecuadorean sheath. Digital subtraction angiography was performed demonstrating an appropriate puncture, above the bifurcation and below the inferior epigastric artery. The abdominal aorta was selected and digital subtraction angiography was performed. The left external iliac artery, superficial femoral artery, and popliteal artery were selected and digital subtraction angiography was performed. After reviewing the diagnostic images, I determined the patient did not require an intervention. All wires, and catheters were retracted to the right external iliac artery. Sheath was then exchanged for a 6 Ecuadorean Pro style which was used to close the artery achieving immediate hemostasis. Sterile dressing applied. Pressure dressing applied. The patient tolerated the procedure well. No immediate postprocedural complications. FINDINGS: Abdominal aorta: The infrarenal abdominal aorta is patent. Right lower extremity: The right common iliac artery, external iliac artery, and internal iliac artery are patent. Hypertrophic tortuous right uterine artery incidentally noted. The right common femoral artery, profunda femoral artery and superficial femoral artery are patent. The right popliteal artery is patent. All proximal tibial vessels are patent to the level of the proximal calf. Left lower extremity: The left common iliac artery, external iliac artery, and internal iliac artery are patent. The left common femoral artery, profunda femoral artery, and superficial femoral artery are patent. The left popliteal artery is patent. The left anterior tibial artery is patent and the dorsalis pedis is patent. The tibioperoneal trunk is patent, the posterior tibial artery and peroneal artery are patent. The common plantar artery, and medial and lateral plantar arteries are patent. IMPRESSION: Successful's third order selection with diagnostic angiography of the bilateral lower extremities. No significant arterial disease of the left lower extremity.
[2022-03-31] MEDS: glipiZIDE 5 MG TAB PO SCH ×2 (12:46→21:43)
[2022-03-31] MEDS: FAMOTIDINE 20 MG TAB PO SCH ×2 (12:46→21:43)
[2022-03-31] MEDS: LISINOPRIL 10 MG TAB PO SCH (12:46)
[2022-03-31] MEDS: hydroCHLOROthiazide 12.5 MG CAP PO SCH (12:46)
[2022-03-31] MEDS: ALPRAZolam 0.25 MG TAB PO PRN ×2 (13:35→21:43)
--- NOTE | 2022-03-31 13:35 | Progress Note ---
Assessment and Plan 47 yo F with 1. Acute osteomyelitis of left great toe 2. rothman grade 2 infected L diabetic foot wound 3. poorly controlled DM - Last HbA1C 10.5 on 01/07/22 4. hx DVT on xarelto MRI LLE - acute osteomyelitis of left great toe Angio LLE - No significant arterial disease of the left lower extremity. Pt stable. I reviewed MRI with in house radiologist and there is not an abscess of left great toe. Likely packing/dressing material. Patient states she has a history of osteo in L foot in the past and has been through 6 weeks of abx last year. Plan: 1. Continue local wound care with alginate 2. prn pain control 3. elevate LLE 4. IV abx 5. strict glucose control. 6. Discussed MRI results with patient. Explained treatment options including amputation of great toe vs 6 weeks of IV abx, wound care, possible HBOT. The patient electing to proceed with amputation. Will discuss case with Dr. Orourke. Thank you, please call with questions. Subjective Date of service: 03/31/22 Narrative: Pt seen and examined. No acute complaints. Afebrile. Had LLE angio and MRI left foot today. Objective Vital Signs - 12hr 03/31/22 03/31/22 03/31/22 03:00 04:36 08:04 Temperature 97.9 F 98.3 F Pulse Rate 91 H 97 H Respiratory 18 18 Rate Blood Pressure 185/93 166/82 O2 Sat by Pulse 100 100 100 Oximetry - General physical appearance Narrative Exam: Gen: AAOx3. NAD ENT: no scleral icterus or conjunctival pallor CV: S1, S2+ Resp: even and unlabored Ext: Left calf swelling improved. Wound at the lateral aspect of the great toe with slough and callus buildup. No necrotic tissue. Minimal serosang drainage. Wound cleansed and alginate applied to wound bed. Covered with gauze and secured with tape. - Labs 03/31/22 05:08 03/31/22 05:08 Diabetes panel 03/31/22 Range/Units 05:08 Sodium 139 (137-145) mmol/L Potassium 4.0 (3.6-5.0) mmol/L Chloride 100.4 (98-107) mmol/L Carbon Dioxide 26 (22-30) mmol/L BUN 12 (7-17) mg/dL Creatinine 0.6 (0.6-1.2) mg/dL Glucose 225 H (65-100) mg/dL Calcium 9.2 (8.4-10.2) mg/dL Calcium panel 03/31/22 Range/Units 05:08 Calcium 9.2 (8.4-10.2) mg/dL Pituitary panel 03/31/22 Range/Units 05:08 Sodium 139 (137-145) mmol/L Potassium 4.0 (3.6-5.0) mmol/L Chloride 100.4 (98-107) mmol/L Carbon Dioxide 26 (22-30) mmol/L BUN 12 (7-17) mg/dL Creatinine 0.6 (0.6-1.2) mg/dL Glucose 225 H (65-100) mg/dL Calcium 9.2 (8.4-10.2) mg/dL Adrenal panel 03/31/22 Range/Units 05:08 Sodium 139 (137-145) mmol/L Potassium 4.0 (3.6-5.0) mmol/L Chloride 100.4 (98-107) mmol/L Carbon Dioxide 26 (22-30) mmol/L BUN 12 (7-17) mg/dL Creatinine 0.6 (0.6-1.2) mg/dL Glucose 225 H (65-100) mg/dL Calcium 9.2 (8.4-10.2) mg/dL
[2022-03-31] MEDS: metroNIDAZOLE/NS 500 MG/100 ML 500 MG/100 ML BAG IV SCH ×2 (14:00→21:44)
[2022-03-31] MEDS: CEFEPIME/NS 2 GM/100 ML 2 GM/100 ML BAG IV SCH (14:00)
--- NOTE | 2022-03-31 14:16 | Consultation ---
History of Present Illness - Reason for Consult Consult date: 03/31/22 - History of Present Illness Both medical history diabetes, CHF, hypertension, arthritis, COPD physical complaining of left pain foot in the setting of chronic wound. She also complains of associated swelling and warmth with burning. She had a surgery performed in [place] in January, but did not follow-up as an outpatient. She previously had amputation of the left first toe at the IP joint. She was taken to the OR today for revascularization. She is now pending further amputation. One-time fever last Thursday, otherwise afebrile. White Count 6.1. Cultures no growth so far. Currently on vancomycin, cefepime, metronidazole. Imaging reviewed: Lower extremity MRI: Osteomyelitis of the great toe proximal phalanx with abscess and cellulitis Review of Systems: Bold if positive, otherwise negative General: fevers, chills, rigors HEENT: visual disturbance, diplopia, eye pain Respiratory: cough, sputum, hemoptysis, shortness of breath Cardiovascular: chest pain, syncope Gastrointestinal: nausea, vomiting, diarrhea, abdominal pain Genitourinary: dysuria, hematuria, flank pain Musculoskeletal: neck pain, back pain, joint pain, edema Neurologic: headaches, seizures Hematologic: easy bruising or bleeding Endocrine: night sweats, acute weight loss Skin: rash, jaundice, redness Psychiatric: suicidal, homicidal ideation Past History Past Medical History: acute HI, arthritis, COPD, diabetes, DVT, other (Asthma) Past Surgical History: PTCA, Other (L great toe distal amputation) Social history: smoking (Current daily smoker) Family history: no significant family history Medications and Allergies Allergies Allergy/AdvReac Type Severity Reaction Status Date / Time Iodine and Iodide Containing Allergy Unknown Verified 03/26/22 11:53 Produc tuberculin,PPD,multi-puncture Allergy Rash Verified 03/31/22 10:08 Home Medications Medication Instructions Recorded Confirmed Last Taken Type Albuterol Mdi (or & Nicu Only) 2 puff IH QID PRN 01/06/22 03/27/22 02/16/22 History [ProAir HFA Inhaler] Clotrimazole 1% [Lotrimin 1%] 1 applic TP BID PRN 01/06/22 03/27/22 02/16/22 History Fluticasone/Salmeterol [Advair 2 puff INHALATION DAILY PRN 01/06/22 03/27/22 02/16/22 History Diskus 100-50 mcg] Mupirocin [Bactroban 2% OINT] 1 applic TP TID 01/06/22 03/27/22 03/26/22 History glipiZIDE [Glucotrol] 10 mg PO BID 01/06/22 03/27/22 03/25/22 History lisinopriL [Lisinopril] 10 mg PO DAILY 01/06/22 03/27/22 02/16/22 History metFORMIN [Glucophage] 500 mg PO DAILY 01/06/22 03/27/22 03/25/22 History AtorvaSTATin [Lipitor] 40 mg PO QHS #30 tablet 01/09/22 03/27/22 03/25/22 Rx ALPRAZolam [Xanax TAB] 0.25 mg PO BID PRN 03/27/22 03/27/22 03/25/22 History Active Meds: Active Medications Acetaminophen (Acetaminophen 325 Mg Tab) 650 mg PO Q4H PRN PRN Reason: Pain MILD(1-3)/Fever >100.5/RICH Last Admin: 03/28/22 16:16 Dose: 650 mg Alprazolam (Alprazolam 0.25 Mg Tab) 0.25 mg PO BID PRN PRN Reason: Anxiety Stop: 04/04/22 10:59 Last Admin: 03/31/22 13:35 Dose: 0.25 mg Atorvastatin Calcium (Atorvastatin 40 Mg Tab) 40 mg PO QHS COUNT INCLUDES THE [facility] Last Admin: 03/30/22 21:17 Dose: 40 mg Clotrimazole (Clotrimazole/Betamethasone Cream 15 Gm) 1 applic TP BID COUNT INCLUDES THE [facility] Last Admin: 03/31/22 12:45 Dose: 1 applic Dextrose (Dextrose 50% In Water (25gm) 50 Ml Syringe) 50 ml IV Q30MIN PRN; Protocol PRN Reason: Hypoglycemia Famotidine (Famotidine 20 Mg Tab) 20 mg PO BID COUNT INCLUDES THE [facility] Last Admin: 03/31/22 12:46 Dose: 20 mg Gabapentin (Gabapentin 100 Mg Cap) 100 mg PO Q8HR COUNT INCLUDES THE [facility] Last Admin: 03/31/22 14:00 Dose: 100 mg Glipizide (Glipizide 5 Mg Tab) 5 mg PO BID COUNT INCLUDES THE [facility] Last Admin: 03/31/22 12:46 Dose: 5 mg Hydrochlorothiazide (Hydrochlorothiazide 12.5 Mg Cap) 12.5 mg PO QDAY COUNT INCLUDES THE [facility] Last Admin: 03/31/22 12:46 Dose: 12.5 mg Vancomycin HCl 1,250 mg/ (Sodium Chloride) 275 mls @ 166.667 mls/hr IV Q12H JULIENNE Last Admin: 03/31/22 06:21 Dose: 166.667 mls/hr Sodium Chloride (Nacl 0.9% 500 Ml) 500 mls @ 50 mls/hr IV DIRECT JULIENNE Cefepime HCl (Cefepime/Ns 2 Gm/100 Ml) 2 gm in 100 mls @ 200 mls/hr IV Q12H COUNT INCLUDES THE [facility]; Protocol Last Admin: 03/31/22 14:00 Dose: 200 mls/hr Metronidazole (Flagyl 500 Mg/100 Ml) 500 mg in 100 mls @ 100 mls/hr IV Q8H COUNT INCLUDES THE [facility]; Protocol Last Admin: 03/31/22 14:00 Dose: 100 mls/hr Insulin Glargine (Insulin Glargine 100 Units/Ml) 24 units SUB-Q BID COUNT INCLUDES THE [facility] Insulin Human Lispro (Insulin Lispro 100 Unit/Ml) 0 unit SUB-Q ACHS COUNT INCLUDES THE [facility]; Wily col Last Admin: 03/31/22 11:30 Dose: Not Given Lisinopril (Lisinopril 10 Mg Tab) 10 mg PO DAILY COUNT INCLUDES THE [facility] Last Admin: 03/31/22 12:46 Dose: 10 mg Magnesium Hydroxide (Magnesium Hydroxide (Mom) Oral Liqd Udc) 30 ml PO Q4H PRN PRN Reason: Constipation Morphine Sulfate (Morphine 2 Mg/1 Ml Inj) 2 mg IV Q4H PRN PRN Reason: Pain, Moderate (4-6) Last Admin: 03/30/22 14:23 Dose: 2 mg Morphine Sulfate (Morphine 4 Mg/1 Ml Inj) 4 mg IV Q4H PRN PRN Reason: Pain , Severe (7-10) Last Admin: 03/29/22 05:00 Dose: 4 mg Ondansetron HCl (Ondansetron 4 Mg/2 Ml Inj) 4 mg IV Q8H PRN PRN Reason: Nausea And Vomiting Sodium Chloride (Sodium Chloride 0.9% 10 Ml Flush Syringe) 10 ml IV BID COUNT INCLUDES THE [facility] Last Admin: 03/31/22 12:46 Dose: 10 ml Sodium Chloride (Sodium Chloride 0.9% 10 Ml Flush Syringe) 10 ml IV PRN PRN PRN Reason: LINE FLUSH Physical Examination - Physical Exam Narrative exam: Physical Exam: Constitutional: Alert, cooperative. No acute distress Head, Ears, Nose: Normocephalic, atraumatic. External ears, nose normal Eyes: Conjunctivae/corneas clear. No icterus. No ptosis. Neck: Supple, no meningeal signs Oral: dentition fair, no thrush Cardiovascular: S1, S2 normal. Respiratory: Good air entry, clear to auscultation bilaterally GI: Soft, non-tender; bowel sounds normal. No peritoneal signs. Musculoskeletal: L great toe partial amputation Skin: No rash or abscess Hem/Lymphatic: No palpable cervical or supraclavicular nodes. No lymphangitis Psych: Mood ok. Affect normal Neurological: Awake, alert, oriented. No gross abnormality - Constitutional Vitals: Vital Signs Temp Pulse Resp BP Pulse Ox 98.3 F 97 H 18 166/82 100 03/31/22 08:04 03/31/22 08:04 03/31/22 08:04 03/31/22 08:04 03/31/22 08:04 Temperature -Last 24 Hours Temperature 98.3 F Temperature 97.9 F Temperature 98.7 F Temperature 99.3 F Temperature 98.5 F Results - Labs CBC & Chem 7: 03/31/22 05:08 03/31/22 05:08 Labs: Abnormal lab results 03/30/22 03/30/22 03/31/22 Range/Units 15:31 20:41 05:08 MCH 27 L (28-32) pg RDW 16.6 H (13.2-15.2) % Glucose (65-100) mg/dL POC Glucose 271 H 336 H (70-105) mg/dL 03/31/22 03/31/22 Range/Units 05:08 08:03 MCH (28-32) pg RDW (13.2-15.2) % Glucose 225 H (65-100) mg/dL POC Glucose 263 H (70-105) mg/dL Assessment and Plan Cultures: Blood culture no growth so far Urine culture no growth so far A/P: 87-year-old female with numerous medical comorbidities now with #Left great toe osteomyelitis: With cellulitis and abscess. Pending amputation. #PVD: Status post revascularization #DM2: tight glycemic control for best outcomes. Recs: -Continue empiric antibiotics for now. -Pending amputation which should be curative of osteomyelitis -Obtain cultures from abscess Thank you for the consult, we will continue to follow. Sae Mcelroy MD [facility] O: [phone] F: [phone]
--- NOTE | 2022-03-31 15:59 | Progress Note ---
Assessment and Plan - Patient Problems (1) Diabetic foot ulcer associated with type 2 diabetes mellitus, with fat layer exposed Current Visit: Yes Status: Acute Plan to address problem: 1) TMA of left great toe tomorrow. 2) NPO after MN Subjective Date of service: 03/31/22 Patient Reports: Positive: no new complaints Objective Vital Signs - 12hr 03/31/22 03/31/22 03/31/22 04:36 08:04 15:00 Temperature 97.9 F 98.3 F Pulse Rate 91 H 97 H Respiratory 18 18 Rate Blood Pressure 185/93 166/82 O2 Sat by Pulse 100 100 98 Oximetry - Integumentary other (Left medial great toe with 9 mm ulcer.) - Labs 03/31/22 05:08 03/31/22 05:08 Diabetes panel 03/31/22 Range/Units 05:08 Sodium 139 (137-145) mmol/L Potassium 4.0 (3.6-5.0) mmol/L Chloride 100.4 (98-107) mmol/L Carbon Dioxide 26 (22-30) mmol/L BUN 12 (7-17) mg/dL Creatinine 0.6 (0.6-1.2) mg/dL Glucose 225 H (65-100) mg/dL Calcium 9.2 (8.4-10.2) mg/dL Calcium panel 03/31/22 Range/Units 05:08 Calcium 9.2 (8.4-10.2) mg/dL Pituitary panel 03/31/22 Range/Units 05:08 Sodium 139 (137-145) mmol/L Potassium 4.0 (3.6-5.0) mmol/L Chloride 100.4 (98-107) mmol/L Carbon Dioxide 26 (22-30) mmol/L BUN 12 (7-17) mg/dL Creatinine 0.6 (0.6-1.2) mg/dL Glucose 225 H (65-100) mg/dL Calcium 9.2 (8.4-10.2) mg/dL Adrenal panel 03/31/22 Range/Units 05:08 Sodium 139 (137-145) mmol/L Potassium 4.0 (3.6-5.0) mmol/L Chloride 100.4 (98-107) mmol/L Carbon Dioxide 26 (22-30) mmol/L BUN 12 (7-17) mg/dL Creatinine 0.6 (0.6-1.2) mg/dL Glucose 225 H (65-100) mg/dL Calcium 9.2 (8.4-10.2) mg/dL - Imaging Additional Studies: MRI of left foot reviewed. Vascular Surgery notes reviewed.
[2022-03-31] MEDS: MORPHINE 2 MG/1 ML INJ IV PRN ×2 (17:34→21:44)
[2022-03-31] MEDS ORDERED: INSULIN GLARGINE 100 UNITS/ML SUB-Q SCH (22:00)
[2022-04-01] MEDS: CEFEPIME/NS 2 GM/100 ML 2 GM/100 ML BAG IV SCH ×2 (01:41→16:10)
[2022-04-01] MEDS: metroNIDAZOLE/NS 500 MG/100 ML 500 MG/100 ML BAG IV SCH ×3 (04:59→20:55)
[2022-04-01] MEDS: VANCOMYCIN 1,250 MG in SODIUM CHLORIDE 0.9% 250ML 250 ML IV SCH ×2 (06:09→17:57)
[2022-04-01] MEDS: GABAPENTIN 100 MG CAP PO SCH ×3 (06:12→21:07)
[2022-04-01] MEDS ORDERED: INSULIN NPH/REGULAR 70/30 INJ SUB-Q ONE (09:15)
[2022-04-01] MEDS: hydroCHLOROthiazide 12.5 MG CAP PO SCH (09:44)
[2022-04-01] MEDS: glipiZIDE 5 MG TAB PO SCH ×2 (09:45→21:07)
[2022-04-01] MEDS: LISINOPRIL 10 MG TAB PO SCH (09:45)
[2022-04-01] MEDS: FAMOTIDINE 20 MG TAB PO SCH ×2 (09:45→21:07)
[2022-04-01] MEDS: CLOTRIMAZOLE/BETAMETHASONE CREAM 15 GM TP SCH ×2 (09:46→21:08)
[2022-04-01] MEDS ORDERED: LORATADINE/PSEUDOEPHEDRINE 10-240 MG TAB 24HR PO SCH (11:00)
[2022-04-01] MEDS: INSULIN REGULAR, HUMAN 100 UNITS/1 ML SUB-Q SCH ×3 (12:10→22:50)
[2022-04-01] MEDS: MORPHINE 2 MG/1 ML INJ IV PRN (12:11)
[2022-04-01] MEDS: INSULIN LISPRO 100 UNIT/ML SUB-Q SCH (14:19)
--- NOTE | 2022-04-01 16:04 | Progress Note ---
Assessment and Plan Cultures: Blood culture no growth so far Urine culture no growth so far A/P: 87-year-old female with numerous medical comorbidities now with #Left great toe osteomyelitis: With cellulitis and abscess. Pending amputation. #PVD: Status post revascularization #DM2: tight glycemic control for best outcomes. Recs: -Continue empiric antibiotics for now. -Pending amputation which should be curative of osteomyelitis -Obtain cultures from abscess Thank you for the consult, we will continue to follow. Sae Mcelroy MD [facility] O: [phone] F: [phone] Subjective Date of service: 04/01/22 Principal diagnosis: PVD with left first toe wound Interval history: Afebrile, normal white count. Pending amputation Objective - Exam Narrative Exam: Physical Exam: Constitutional: Alert, cooperative. No acute distress Head, Ears, Nose: Normocephalic, atraumatic. External ears, nose normal Eyes: Conjunctivae/corneas clear. No icterus. No ptosis. Neck: Supple, no meningeal signs Oral: dentition fair, no thrush Cardiovascular: S1, S2 normal. Respiratory: Good air entry, clear to auscultation bilaterally GI: Soft, non-tender; bowel sounds normal. No peritoneal signs. Musculoskeletal: L great toe partial amputation Skin: No rash or abscess Hem/Lymphatic: No palpable cervical or supraclavicular nodes. No lymphangitis Psych: Mood ok. Affect normal Neurological: Awake, alert, oriented. No gross abnormality - Constitutional Vitals: Vital Signs Temp Pulse Resp BP Pulse Ox 97.8 F 102 H 18 137/68 100 04/01/22 03:53 04/01/22 07:41 04/01/22 03:53 04/01/22 03:53 04/01/22 10:00 Temperature -Last 24 Hours Temperature 97.8 F Temperature 97.6 F Temperature 98.3 F - Labs CBC & Chem 7: 03/31/22 05:08 03/31/22 05:08 Labs: Abnormal lab results 03/31/22 03/31/22 04/01/22 Range/Units 16:33 22:14 07:46 POC Glucose 435 H 556 H 431 H (70-105) mg/dL 04/01/22 Range/Units 11:59 POC Glucose 278 H (70-105) mg/dL
[2022-04-01] MEDS: INSULIN NPH/REGULAR 70/30 INJ SUB-Q SCH (17:56)
--- NOTE | 2022-04-01 18:27 | Progress Note ---
Assessment and Plan Assessment and plan: #Sepsis-improving #Cellulitis of the left foot #Diabetic foot ulcer #Osteomyelitis of great left toe -afebrile, HR improving -BCx 03/26: NGTD x 72hrs -continue vancomycin, cefepime, and Flagyl. Infectious disease consulted; appreciate recs. -LLE arterial doppler abnormal; LLE venous doppler negative for DVT -LLE MRI shows Acute osteomyelitis of the great toe proximal phalanx with soft tissue abscess with cellulitis -tight glucose control to promote healing -General surgery consulted; appreciate recs. Pending amputation of left great toe tomorrow. -Vascular surgery following, assistance appreciated #Type II Diabetes Mellitus with hyperglycemiaimproving -will order A1C; patient reports A1C of 10% in December 2021 -takes metformin and glipizide outpatient; has previously used insulin but thought blood sugars were subjectively too low (in 80s) -continue SSI with accuchecks TID WM -Discontinued Lantus started NPH 70/30 30 units twice daily. -Continue glipizide -goal glucose 140-180 #Right upper extremity swelling -RUE swelling after IV infiltrated, IV removed -warm compresses -RUE venous doppler ordered #Volume depletion-resolved -likely secondary to hyperglycemia -IVFs discontinued #UTIruled out #Vulvar candidasis -UA shows WBC, but patient has no symptoms; urine culture pending -diflucan x1 #Hypertension -continue home BP medications -goal SBP <160 while inpatient #History of DVT -Patient currently taking Xarelto and unknown dose -continue Xarelto #History of COPD -controlled, patient not taking medications at home #Tobacco dependence #Tobacco/Smoking cessation counseling - Counseled patient about the importance of smoking cessation and the possible sequelae as a result of continued tobacco consumption. The patient expresses understanding. Patient reviews nicotine patch. -Time: +15 mins #Obesity #Weight loss counseling #Exercise counseling - BMI 33.3 - Counseled patient on the importance of weight loss, incorporating exercise, and dietary changes (lean meats, fresh fruits and vegetables, and water intake). Patient expresses understanding. - Time: +15 min #Advanced care planning -Disease education conducted, care plan discussed, diagnoses discussed, prognosis discussed, and patient acknowledges understanding with care plan -Time: +30 min Disposition Plan: Continue medical management Total Time Spent with Patient (Minutes): 45 minutes History Interval history: No acute events overnight. Hospitalist Physical - Constitutional Vitals: Temp Pulse Resp BP Pulse Ox 97.8 F 95 H 18 137/68 99 04/01/22 03:53 04/01/22 16:19 04/01/22 03:53 04/01/22 03:53 04/01/22 16:19 General appearance: Present: no acute distress, well-nourished, obese - EENT Eyes: Present: PERRL, EOM intact ENT: hearing intact, clear oral mucosa, edentulous - Neck Neck: Present: supple, normal ROM - Respiratory Respiratory effort: normal Respiratory: bilateral: diminished - Cardiovascular Rhythm: regular Heart Sounds: Present: S1 & S2 - Extremities Extremities: no ischemia, pulses intact, pulses symmetrical, No edema, normal temperature, normal color, Full ROM Peripheral Pulses: within normal limits - Abdominal General gastrointestinal: soft, non-tender, non-distended, normal bowel sounds - Integumentary Integumentary: Present: clear, warm, dry - Psychiatric Psychiatric: appropriate mood/affect, intact judgment & insight, memory intact, cooperative - Neurologic Neurologic: CNII-XII intact, moves all extremities - Allied Health Allied health notes reviewed: nursing Results - Labs CBC & Chem 7: 03/31/22 05:08 03/31/22 05:08 Labs: Laboratory Last Values WBC 6.1 K/mm3 (4.5-11.0) 03/31/22 05:08 RBC 4.64 M/mm3 (3.65-5.03) 03/31/22 05:08 Hgb 12.4 gm/dl (10.1-14.3) 03/31/22 05:08 Hct 38.3 % (30.3-42.9) 03/31/22 05:08 MCV 83 fl (79-97) 03/31/22 05:08 MCH 27 pg (28-32) L 03/31/22 05:08 MCHC 32 % (30-34) 03/31/22 05:08 RDW 16.6 % (13.2-15.2) H 03/31/22 05:08 Plt Count 389 K/mm3 (140-440) 03/31/22 05:08 Lymph % (Auto) 18.8 % (13.4-35.0) 03/27/22 08:03 [place] % (Auto) 10.2 % (0.0-7.3) H 03/27/22 08:03 Eos % (Auto) 3.6 % (0.0-4.3) 03/27/22 08:03 Baso % (Auto) 1.1 % (0.0-1.8) 03/27/22 08:03 Lymph # (Auto) 1.5 K/mm3 (1.2-5.4) 03/27/22 08:03 [place] # (Auto) 0.8 K/mm3 (0.0-0.8) 03/27/22 08:03 Eos # (Auto) 0.3 K/mm3 (0.0-0.4) 03/27/22 08:03 Baso # (Auto) 0.1 K/mm3 (0.0-0.1) 03/27/22 08:03 Seg Neutrophils % 66.3 % (40.0-70.0) 03/27/22 08:03 Seg Neutrophils # 5.4 K/mm3 (1.8-7.7) 03/27/22 08:03 ESR 18 mm/Hr (0-20) 03/26/22 21:23 PT 13.1 Sec. (12.2-14.9) 03/26/22 21:23 INR 0.90 (0.87-1.13) 03/26/22 21:23 APTT 28.6 Sec. (24.2-36.6) 03/26/22 21:23 VBG pH 7.404 (7.320-7.420) 03/26/22 21:23 Sodium 139 mmol/L (137-145) 03/31/22 05:08 Potassium 4.0 mmol/L (3.6-5.0) 03/31/22 05:08 Chloride 100.4 mmol/L (98-107) 03/31/22 05:08 Carbon Dioxide 26 mmol/L (22-30) 03/31/22 05:08 Anion Gap 17 mmol/L 03/31/22 05:08 BUN 12 mg/dL (7-17) 03/31/22 05:08 Creatinine 0.6 mg/dL (0.6-1.2) 03/31/22 05:08 Estimated GFR > 60 ml/min 03/31/22 05:08 BUN/Creatinine Ratio 20 % 03/31/22 05:08 Glucose 225 mg/dL (65-100) H 03/31/22 05:08 POC Glucose 233 mg/dL (70-105) H 04/01/22 16:41 Hemoglobin A1c 12.3 % (4-6) H 03/30/22 11:45 Calcium 9.2 mg/dL (8.4-10.2) 03/31/22 05:08 Magnesium 2.00 mg/dL (1.7-2.3) 03/26/22 21:23 Total Bilirubin 0.70 mg/dL (0.1-1.2) 03/26/22 12:51 AST 12 units/L (5-40) 03/26/22 12:51 ALT 9 units/L (7-56) 03/26/22 12:51 Alkaline Phosphatase 112 units/L (35-129) 03/26/22 12:51 Total Creatine Kinase 56 units/L (30-135) 03/26/22 21:23 C-Reactive Protein 3.90 mg/dL (0.00-1.30) H 03/26/22 21:23 Total Protein 10.0 g/dL (6.3-8.2) H 03/26/22 12:51 Albumin 4.9 g/dL (3.9-5) 03/26/22 12:51 Albumin/Globulin Ratio 1.0 % 03/26/22 12:51 HCG, Quant < 2 mIU/mL (0-4) 03/26/22 21:23 Urine Color Straw (Yellow) 03/26/22 Unknown Urine Turbidity Clear (Clear) 03/26/22 Unknown Urine pH 6.0 (5.0-7.0) 03/26/22 Unknown Ur Specific [place] 1.010 (1.003-1.030) 03/26/22 Unknown Urine Protein <15 mg/dl mg/dL (Negative) 03/26/22 Unknown Urine Glucose (UA) Trace mg/dL (Negative) 03/26/22 Unknown Urine Ketones Trace mg/dL (Negative) 03/26/22 Unknown Urine Blood Trace (Negative) 03/26/22 Unknown Urine Nitrite Negative (Negative) 03/26/22 Unknown Ur Reducing Substances Not Reportable 03/26/22 Unknown Urine Bilirubin Negative (Negative) 03/26/22 Unknown Urine Ictotest Not Reportable 03/26/22 Unknown Urine Urobilinogen < 2.0 mg/dL (<2.0) 03/26/22 Unknown Ur Leukocyte Esterase Trace (Negative) 03/26/22 Unknown Urine WBC (Auto) 48.0 /HPF (0.0-6.0) H 03/26/22 Unknown Urine RBC (Auto) 7.0 /HPF (0.0-6.0) 03/26/22 Unknown U Epithel Cells (Auto) 5.0 /HPF (0-13.0) 03/26/22 Unknown Urine Mucus Few /HPF 03/26/22 Unknown Urine Yeast (Budding) Few /HPF 03/26/22 Unknown Vancomycin Trough 12.7 ug/mL (5.0-20.0) 03/29/22 18:40 Microbiology: Microbiology 03/26/22 21:23 Peripheral/Venous Blood Culture - Final NO GROWTH AFTER 5 DAYS 03/26/22 21:23 Peripheral/Venous Blood Culture - Final NO GROWTH AFTER 5 DAYS [place]/IV: Voiding Method Toilet Active Medications - Current Medications Current Medications: Generic Name Dose Route Start Last Admin Trade Name Freq PRN Reason Stop Dose Admin Acetaminophen 650 mg 03/26/22 22:22 03/28/22 16:16 Acetaminophen 325 Mg Tab PO 650 mg Q4H PRN Administration Pain MILD(1-3)/Fever >100.5/RICH Alprazolam 0.25 mg 03/27/22 11:00 03/31/22 21:43 Alprazolam 0.25 Mg Tab PO 04/04/22 10:59 0.25 mg BID PRN Administration Anxiety Atorvastatin Calcium 40 mg 03/27/22 22:00 03/31/22 21:43 Atorvastatin 40 Mg Tab PO 40 mg QHS JULIENNE Administration Clotrimazole 1 applic 03/29/22 18:00 04/01/22 09:46 Clotrimazole/Betamethasone Cream 15 Gm TP 1 applic BID JULIENNE Administration Dextrose 50 ml 03/26/22 22:22 Dextrose 50% In Water (25gm) 50 Ml Syringe IV Q30MIN PRN Hypoglycemia Protocol Famotidine 20 mg 03/27/22 10:00 04/01/22 09:45 Famotidine 20 Mg Tab PO 20 mg BID JULIENNE Administration Gabapentin 100 mg 03/27/22 08:00 04/01/22 16:10 Gabapentin 100 Mg Cap PO 100 mg Q8HR JULIENNE Administration Glipizide 5 mg 03/30/22 22:00 04/01/22 09:45 Glipizide 5 Mg Tab PO 5 mg BID JULIENNE Administration Hydrochlorothiazide 12.5 mg 03/27/22 10:00 04/01/22 09:44 Hydrochlorothiazide 12.5 Mg Cap PO Not Given QDAY JULIENNE Vancomycin HCl 1,250 mg/ 275 mls @ 166.667 mls/hr 03/27/22 18:00 04/01/22 17:57 Sodium Chloride IV 166.667 mls/hr Q12H JULIENNE Administration Sodium Chloride 500 mls @ 50 mls/hr 03/31/22 11:00 Nacl 0.9% 500 Ml IV DIRECT JULIENNE Cefepime HCl 2 gm in 100 mls @ 200 mls/hr 03/31/22 14:00 04/01/22 16:10 Cefepime/Ns 2 Gm/100 Ml IV 200 mls/hr Q12H JULIENNE Administration Protocol Metronidazole 500 mg in 100 mls @ 100 mls/hr 03/31/22 12:00 04/01/22 12:09 Flagyl 500 Mg/100 Ml IV 100 mls/hr Q8H JULIENNE Administration Protocol Insulin Human Isoph/Insulin Regular 30 unit 04/01/22 17:00 04/01/22 17:56 Insulin Nph/Regular 70/30 Inj SUB-Q 30 unit BIDDIAB JULIENNE Administration Insulin Human Regular 0 units 04/01/22 11:30 04/01/22 17:56 Insulin Regular, Human 100 Units/1 Ml SUB-Q 3 units ACHS JULIENNE Administration Protocol Lisinopril 10 mg 03/27/22 10:00 04/01/22 09:45 Lisinopril 10 Mg Tab PO 10 mg DAILY JULIENNE Administration Loratadine/Pseudoephedrine Sulfate 1 each 04/01/22 11:00 04/01/22 11:16 Loratadine/Pseudoephedrine 10-240 Mg Tab 24hr PO 1 each Q24HR JULIENNE Administration Magnesium Hydroxide 30 ml 03/26/22 22:22 Magnesium Hydroxide (Mom) Oral Liqd Udc PO Q4H PRN Constipation Morphine Sulfate 2 mg 03/26/22 22:22 04/01/22 12:11 Morphine 2 Mg/1 Ml Inj IV 2 mg Q4H PRN Administration Pain, Moderate (4-6) Morphine Sulfate 4 mg 03/26/22 22:22 03/29/22 05:00 Morphine 4 Mg/1 Ml Inj IV 4 mg Q4H PRN Administration Pain , Severe (7-10) Ondansetron HCl 4 mg 03/26/22 22:22 Ondansetron 4 Mg/2 Ml Inj IV Q8H PRN Nausea And Vomiting Sodium Chloride 10 ml 03/27/22 10:00 04/01/22 09:46 Sodium Chloride 0.9% 10 Ml Flush Syringe IV 10 ml BID JULIENNE Administration Sodium Chloride 10 ml 03/26/22 22:22 Sodium Chloride 0.9% 10 Ml Flush Syringe IV PRN PRN LINE FLUSH Nutrition/Malnutrition Assess - Dietary Evaluation Nutrition/Malnutrition Findings: Nutrition Notes Start: 03/27/22 14:38 Freq: Status: Active Protocol: Document 03/27/22 14:38 NEGAR (Rec: 03/27/22 14:59 NEGAR [email or web address]) Nutrition Notes Need for Assessment generated from: MD Order,Education Initial or Follow up Assessment Current Diagnosis COPD,Diabetes,Hypertension Other Pertinent Diagnosis CHF, DVT/L-Foot Cellulitis, UTI. Current Diet Cardiac/Consistent Carbohydrates Diet (since B ). Labs/Tests 03/27: Na 134, BUN 5, Glu 338, HbA1c 10.5%. Pertinent Medications 03/27: Humalog 4U, others nutritionally unremarkable. Height 5 ft 5 in Weight 90.718 kg [place] Body Weight (kg) 56.81 BMI 33.3 Intake Prior to Admission Good Weight change and time frame Pt denies having loss body weight [employer]. Weight Status Obese Subjective/Other Information RD consult for dietary supplementation and nutrition education assessments. No reports available on Pt's PO intake of meals at the time , will assess at F/U; I will not prescribe Dietary Supplementation at this time, since it does not seems necessary, I will reassess at F/U. Pt is on Room Air, O2 saturation @ 98%, according to Physical Assessment History notes. Pt presents L-Foot Cellulitis, and s/p first toe amputation, according to Progress notes. Pt still in critical condition , not a candidate for Nutrition Education at the time, will assess feasibility on F/U. Percent of energy/protein needs met: Prescribed Cardiac/Consistent Carbohydrates Diet provides for energy/protein needs (1, 977 Kcal/86 g) during LOS. Burn Absent Trauma Absent GI Symptoms None Food Allergy No Skin Integrity/Comment L-Foot cellulitis. 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 Is patient on ventilator? No Is Patient Ambulatory and/or Out of Bed Yes REE-([facility]-ambulatory/OOB) [ 1999.478 [id number]] Kcal/Kg value to use for calculation 17 Approximate Energy Requirements Using 1542 kcal/Kg Calculation Used for Recommendations Kcal/kg Additional Notes Protein: 1.25-1.5 g/Kg AdjBW; 93-111 g/day. Fluids: 1 ml/Kcal, or as per MD. Nutrition Intervention Change Diet Order: Continue Cardiac/Consistent Carbohydrates Diet. Follow-Up By: 04/03/22 Additional Comments Nutrition education will be provided at F/U, if feasible. Continue monitoring food tolerance, %PO intake of meals , and BM.
[2022-04-01] MEDS: MORPHINE 4 MG/1 ML INJ IV PRN (21:09)
[2022-04-02] MEDS: CEFEPIME/NS 2 GM/100 ML 2 GM/100 ML BAG IV SCH ×2 (01:44→14:01)
[2022-04-02] MEDS: metroNIDAZOLE/NS 500 MG/100 ML 500 MG/100 ML BAG IV SCH ×3 (03:45→20:35)
[2022-04-02 05:37] LABS: Basophils % (Auto) 2.2 % (0.0-1.8); Eosinophils % (Auto) 3.4 % (0.0-4.3); Hemoglobin 12.3 gm/dl (10.1-14.3); Lymphocytes # (Auto) 2.8 K/mm3 (1.2-5.4); Lymphocytes % (Auto) 37.7 % (13.4-35.0); Mean Corpuscular HGB Conc 32 % (30-34); Mean Corpuscular Volume 83 fl (79-97); Mean Platelet Volume 8.2 fl (6-12); Monocytes % (Auto) 8.1 % (0.0-7.3); Platelet Count 357 K/mm3 (140-440); Red Blood Count 4.59 M/mm3 (3.65-5.03); Red Cell Distribution Width 17.1 % (13.2-15.2)
[2022-04-02 05:38] LABS: Basophils # (Auto) 0.2 K/mm3 (0.0-0.1); Eosinophils # (Auto) 0.3 K/mm3 (0.0-0.4); Monocytes # (Auto) 0.6 K/mm3 (0.0-0.8)
[2022-04-02 05:43] LABS: Blood Urea Nitrogen 14 mg/dL (7-17); Calcium 8.7 mg/dL (8.4-10.2); Hemolysis Index 18
[2022-04-02 06:07] LABS: BUN/Creatinine Ratio 28
[2022-04-02] MEDS: VANCOMYCIN 1,250 MG in SODIUM CHLORIDE 0.9% 250ML 250 ML IV SCH (06:08)
[2022-04-02] MEDS: GABAPENTIN 100 MG CAP PO SCH ×3 (06:08→21:00)
[2022-04-02] MEDS: MORPHINE 4 MG/1 ML INJ IV PRN (06:13)
[2022-04-02] MEDS: CLOTRIMAZOLE/BETAMETHASONE CREAM 15 GM TP SCH ×2 (09:03→21:00)
[2022-04-02] MEDS: INSULIN NPH/REGULAR 70/30 INJ SUB-Q SCH ×2 (09:04→17:00)
[2022-04-02] MEDS: INSULIN REGULAR, HUMAN 100 UNITS/1 ML SUB-Q SCH ×4 (09:08→21:00)
[2022-04-02] MEDS: ALPRAZolam 0.25 MG TAB PO PRN (09:11)
[2022-04-02] MEDS: LISINOPRIL 10 MG TAB PO SCH (09:11)
[2022-04-02] MEDS: hydroCHLOROthiazide 12.5 MG CAP PO SCH (09:11)
[2022-04-02] MEDS: FAMOTIDINE 20 MG TAB PO SCH ×2 (09:11→20:59)
[2022-04-02] MEDS: glipiZIDE 5 MG TAB PO SCH ×2 (09:13→20:59)
[2022-04-02] MEDS: LORATADINE/PSEUDOEPHEDRINE 5-120 MG TAB 12HR PO SCH (09:56)
[2022-04-02] MEDS: MORPHINE 2 MG/1 ML INJ IV PRN ×2 (14:12→20:59)
--- NOTE | 2022-04-02 14:25 | Anesthesia Day of Surgery ---
Anesthesia Day of Surgery - Day of Surgery Patient Examined: Yes Patient H&P Reviewed: Yes Patient is NPO: Yes Beta Blockers: No Cardiac Clearance: No Pulmonary Clearance: No Steven's Test: N/A
--- NOTE | 2022-04-02 14:26 | Anesthesia Consultation ---
Anesthesia Consult and Med Hx Date of service: 04/02/22 - Airway Anesthetic Teeth Evaluation: Poor, Partials ROM Head & Neck: Adequate Mental/Hyoid Distance: Adequate Mallampati Class: Class III Intubation Access Assessment: Probably Good - Pulmonary Exam CTA: Yes - Cardiac Exam Cardiac Exam: RRR - Pre-Operative Health Status ASA Pre-Surgery Classification: ASA3 Proposed Anesthetic Plan: General - Pulmonary Hx Smoking: No Hx Asthma: Yes COPD: Yes Hx Sleep Apnea: No - Cardiovascular System Hx Hypertension: Yes Hx Heart Attack/AMI: Yes - Gastrointestinal Hx Gastroesophageal Reflux Disease: Yes - Endocrine Hx Renal Disease: No Hx Liver Disease: No Hx Non-Insulin Dependent Diabetes: Yes - Other Systems Hx Obesity: Yes
[2022-04-02] MEDS ORDERED: propofoL 200 MG/20 ML VIAL IV ONE (15:12)
[2022-04-02] MEDS ORDERED: fentaNYL 100 MCG/2 ML INJ ONE (15:12)
[2022-04-02] MEDS ORDERED: ONDANSETRON 4 MG/2 ML INJ ONE (15:14)
[2022-04-02] MEDS ORDERED: LIDOCAINE MPF (2%) 20 MG/1 ML VIAL 5 ML ONE (15:14)
[2022-04-02] MEDS ORDERED: LIDOCAINE (1%) 10 MG/1 ML VIAL 20 ML MDV ONE (15:44)
[2022-04-02] MEDS ORDERED: PHENYLEPHRINE/NS 1,000 MCG/10 ML SYRINGE (OR USE) IV ONE (16:13)
[2022-04-02] MEDS ORDERED: SODIUM CHLORIDE 0.9% IRR 1,500 ML BOTTLE IR ONE (16:26)
--- NOTE | 2022-04-02 16:27 | Progress Note ---
Assessment and Plan Assessment and plan: #Sepsis-improving #Cellulitis of the left foot #Diabetic foot ulcer #Osteomyelitis of great left toe -afebrile, HR improving -BCx 03/26: NGTD x 72hrs -continue vancomycin, cefepime, and Flagyl. Infectious disease consulted; appreciate recs. -LLE arterial doppler abnormal; LLE venous doppler negative for DVT -LLE MRI shows Acute osteomyelitis of the great toe proximal phalanx with soft tissue abscess with cellulitis -tight glucose control to promote healing -General surgery consulted; appreciate recs. Pending amputation of left great toe today (04/02/2022). -Vascular surgery following, assistance appreciated #Type II Diabetes Mellitus with hyperglycemiaimproving -will order A1C; patient reports A1C of 10% in December 2021 -takes metformin and glipizide outpatient; has previously used insulin but thought blood sugars were subjectively too low (in 80s) -continue SSI with accuchecks TID WM -Discontinued Lantus started NPH 70/30 30 units twice daily. -Continue glipizide -goal glucose 140-180 #Right upper extremity swelling -RUE swelling after IV infiltrated, IV removed -warm compresses -RUE venous doppler ordered #Volume depletion-resolved -likely secondary to hyperglycemia -IVFs discontinued #UTIruled out #Vulvar candidasis -UA shows WBC, but patient has no symptoms; urine culture pending -diflucan x1 #Hypertension -continue home BP medications -goal SBP <160 while inpatient #History of DVT -Patient currently taking Xarelto and unknown dose -continue Xarelto #History of COPD -controlled, patient not taking medications at home #Tobacco dependence #Tobacco/Smoking cessation counseling - Counseled patient about the importance of smoking cessation and the possible sequelae as a result of continued tobacco consumption. The patient expresses understanding. Patient reviews nicotine patch. -Time: +15 mins #Obesity #Weight loss counseling #Exercise counseling - BMI 33.3 - Counseled patient on the importance of weight loss, incorporating exercise, and dietary changes (lean meats, fresh fruits and vegetables, and water intake). Patient expresses understanding. - Time: +15 min #Advanced care planning -Disease education conducted, care plan discussed, diagnoses discussed, prognosis discussed, and patient acknowledges understanding with care plan -Time: +30 min Disposition Plan: Continue medical management Total Time Spent with Patient (Minutes): 45 minutes History Interval history: No acute events overnight. Hospitalist Physical - Constitutional Vitals: Temp Pulse Resp BP Pulse Ox 98.6 F 90 16 143/94 100 04/02/22 08:29 04/02/22 09:11 04/02/22 08:29 04/02/22 08:29 04/02/22 03:38 General appearance: Present: no acute distress, well-nourished, obese - EENT Eyes: Present: PERRL, EOM intact ENT: hearing intact, clear oral mucosa, dentition normal - Neck Neck: Present: supple, normal ROM - Respiratory Respiratory effort: normal Respiratory: bilateral: CTA - Cardiovascular Rhythm: regular Heart Sounds: Present: S1 & S2 - Extremities Extremities: no ischemia, pulses intact, pulses symmetrical, No edema, normal temperature, normal color Extremity abnormal: ulceration (Ulceration + diabetic infection/osteomyelitis of left great toe) Peripheral Pulses: within normal limits - Abdominal General gastrointestinal: soft, non-tender, non-distended, normal bowel sounds - Integumentary Integumentary: Present: clear, warm, dry - Psychiatric Psychiatric: appropriate mood/affect, intact judgment & insight, memory intact, cooperative - Neurologic Neurologic: CNII-XII intact, moves all extremities - Allied Health Allied health notes reviewed: nursing Results - Labs CBC & Chem 7: 04/02/22 04:30 04/02/22 04:30 Labs: Laboratory Last Values WBC 7.5 K/mm3 (4.5-11.0) 04/02/22 04:30 RBC 4.59 M/mm3 (3.65-5.03) 04/02/22 04:30 Hgb 12.3 gm/dl (10.1-14.3) 04/02/22 04:30 Hct 38.0 % (30.3-42.9) 04/02/22 04:30 MCV 83 fl (79-97) 04/02/22 04:30 MCH 27 pg (28-32) L 04/02/22 04:30 MCHC 32 % (30-34) 04/02/22 04:30 RDW 17.1 % (13.2-15.2) H 04/02/22 04:30 Plt Count 357 K/mm3 (140-440) 04/02/22 04:30 Lymph % (Auto) 37.7 % (13.4-35.0) H 04/02/22 04:30 [place] % (Auto) 8.1 % (0.0-7.3) H 04/02/22 04:30 Eos % (Auto) 3.4 % (0.0-4.3) 04/02/22 04:30 Baso % (Auto) 2.2 % (0.0-1.8) H 04/02/22 04:30 Lymph # (Auto) 2.8 K/mm3 (1.2-5.4) 04/02/22 04:30 [place] # (Auto) 0.6 K/mm3 (0.0-0.8) 04/02/22 04:30 Eos # (Auto) 0.3 K/mm3 (0.0-0.4) 04/02/22 04:30 Baso # (Auto) 0.2 K/mm3 (0.0-0.1) H 04/02/22 04:30 Seg Neutrophils % 48.6 % (40.0-70.0) 04/02/22 04:30 Seg Neutrophils # 3.6 K/mm3 (1.8-7.7) 04/02/22 04:30 ESR 18 mm/Hr (0-20) 03/26/22 21:23 PT 13.1 Sec. (12.2-14.9) 03/26/22 21:23 INR 0.90 (0.87-1.13) 03/26/22 21:23 APTT 28.6 Sec. (24.2-36.6) 03/26/22 21:23 VBG pH 7.404 (7.320-7.420) 03/26/22 21:23 Sodium 139 mmol/L (137-145) 04/02/22 04:30 Potassium 4.6 mmol/L (3.6-5.0) 04/02/22 04:30 Chloride 103.7 mmol/L (98-107) 04/02/22 04:30 Carbon Dioxide 25 mmol/L (22-30) 04/02/22 04:30 Anion Gap 15 mmol/L 04/02/22 04:30 BUN 14 mg/dL (7-17) 04/02/22 04:30 Creatinine 0.5 mg/dL (0.6-1.2) L 04/02/22 04:30 Estimated GFR > 60 ml/min 04/02/22 04:30 BUN/Creatinine Ratio 28 % 04/02/22 04:30 Glucose 254 mg/dL (65-100) H 04/02/22 04:30 POC Glucose 171 mg/dL (70-105) H 04/02/22 11:31 Hemoglobin A1c 12.3 % (4-6) H 03/30/22 11:45 Calcium 8.7 mg/dL (8.4-10.2) 04/02/22 04:30 Magnesium 2.00 mg/dL (1.7-2.3) 03/26/22 21:23 Total Bilirubin 0.70 mg/dL (0.1-1.2) 03/26/22 12:51 AST 12 units/L (5-40) 03/26/22 12:51 ALT 9 units/L (7-56) 03/26/22 12:51 Alkaline Phosphatase 112 units/L (35-129) 03/26/22 12:51 Total Creatine Kinase 56 units/L (30-135) 03/26/22 21:23 C-Reactive Protein 3.90 mg/dL (0.00-1.30) H 03/26/22 21:23 Total Protein 10.0 g/dL (6.3-8.2) H 03/26/22 12:51 Albumin 4.9 g/dL (3.9-5) 03/26/22 12:51 Albumin/Globulin Ratio 1.0 % 03/26/22 12:51 HCG, Quant < 2 mIU/mL (0-4) 03/26/22 21:23 Urine Color Straw (Yellow) 03/26/22 Unknown Urine Turbidity Clear (Clear) 03/26/22 Unknown Urine pH 6.0 (5.0-7.0) 03/26/22 Unknown Ur Specific [place] 1.010 (1.003-1.030) 03/26/22 Unknown Urine Protein <15 mg/dl mg/dL (Negative) 03/26/22 Unknown Urine Glucose (UA) Trace mg/dL (Negative) 03/26/22 Unknown Urine Ketones Trace mg/dL (Negative) 03/26/22 Unknown Urine Blood Trace (Negative) 03/26/22 Unknown Urine Nitrite Negative (Negative) 03/26/22 Unknown Ur Reducing Substances Not Reportable 03/26/22 Unknown Urine Bilirubin Negative (Negative) 03/26/22 Unknown Urine Ictotest Not Reportable 03/26/22 Unknown Urine Urobilinogen < 2.0 mg/dL (<2.0) 03/26/22 Unknown Ur Leukocyte Esterase Trace (Negative) 03/26/22 Unknown Urine WBC (Auto) 48.0 /HPF (0.0-6.0) H 03/26/22 Unknown Urine RBC (Auto) 7.0 /HPF (0.0-6.0) 03/26/22 Unknown U Epithel Cells (Auto) 5.0 /HPF (0-13.0) 03/26/22 Unknown Urine Mucus Few /HPF 03/26/22 Unknown Urine Yeast (Budding) Few /HPF 03/26/22 Unknown Vancomycin Trough 12.7 ug/mL (5.0-20.0) 03/29/22 18:40 [place]/IV: Voiding Method Toilet Active Medications - Current Medications Current Medications: Generic Name Dose Route Start Last Admin Trade Name Freq PRN Reason Stop Dose Admin Acetaminophen 650 mg 03/26/22 22:22 03/28/22 16:16 Acetaminophen 325 Mg Tab PO 650 mg Q4H PRN Administration Pain MILD(1-3)/Fever >100.5/RICH Alprazolam 0.25 mg 03/27/22 11:00 04/02/22 09:11 Alprazolam 0.25 Mg Tab PO 04/04/22 10:59 0.25 mg BID PRN Administration Anxiety Atorvastatin Calcium 40 mg 03/27/22 22:00 04/01/22 21:07 Atorvastatin 40 Mg Tab PO 40 mg QHS JULIENNE Administration Clotrimazole 1 applic 03/29/22 18:00 04/02/22 09:03 Clotrimazole/Betamethasone Cream 15 Gm TP 1 applic BID JULIENNE Administration Dextrose 50 ml 03/26/22 22:22 Dextrose 50% In Water (25gm) 50 Ml Syringe IV Q30MIN PRN Hypoglycemia Protocol Famotidine 20 mg 03/27/22 10:00 04/02/22 09:11 Famotidine 20 Mg Tab PO 20 mg BID JULIENNE Administration Gabapentin 100 mg 03/27/22 08:00 04/02/22 13:55 Gabapentin 100 Mg Cap PO 100 mg Q8HR JULIENNE Administration Glipizide 5 mg 03/30/22 22:00 04/02/22 09:13 Glipizide 5 Mg Tab PO Not Given BID JULIENNE Hydrochlorothiazide 12.5 mg 03/27/22 10:00 04/02/22 09:11 Hydrochlorothiazide 12.5 Mg Cap PO 12.5 mg QDAY JULIENNE Administration Vancomycin HCl 1,250 mg/ 275 mls @ 166.667 mls/hr 03/27/22 18:00 04/02/22 06:08 Sodium Chloride IV 166.667 mls/hr Q12H JULIENNE Administration Cefepime HCl 2 gm in 100 mls @ 200 mls/hr 03/31/22 14:00 04/02/22 14:01 Cefepime/Ns 2 Gm/100 Ml IV 200 mls/hr Q12H [facility] Administration Protocol Metronidazole 500 mg in 100 mls @ 100 mls/hr 03/31/22 12:00 04/02/22 13:54 Flagyl 500 Mg/100 Ml IV 100 mls/hr Q8H [facility] Administration Protocol Insulin Human Isoph/Insulin Regular 30 unit 04/01/22 17:00 04/02/22 09:04 Insulin Nph/Regular 70/30 Inj SUB-Q Not Given BIDDIAB [facility] Insulin Human Regular 0 units 04/01/22 11:30 04/02/22 13:45 Insulin Regular, Human 100 Units/1 Ml SUB-Q Not Given ACHS [facility] Protocol Lisinopril 10 mg 03/27/22 10:00 04/02/22 09:11 Lisinopril 10 Mg Tab PO 10 mg DAILY [facility] Administration Loratadine/Pseudoephedrine Sulfate 1 each 04/02/22 10:00 04/02/22 09:56 Loratadine/Pseudoephedrine 5-120 Mg Tab 12hr PO 1 each Q12HR JULIENNE Administration Magnesium Hydroxide 30 ml 03/26/22 22:22 Magnesium Hydroxide (Mom) Oral Liqd Udc PO Q4H PRN Constipation Morphine Sulfate 2 mg 03/26/22 22:22 04/02/22 14:12 Morphine 2 Mg/1 Ml Inj IV 2 mg Q4H PRN Administration Pain, Moderate (4-6) Morphine Sulfate 4 mg 03/26/22 22:22 04/02/22 06:13 Morphine 4 Mg/1 Ml Inj IV 4 mg Q4H PRN Administration Pain , Severe (7-10) Ondansetron HCl 4 mg 03/26/22 22:22 Ondansetron 4 Mg/2 Ml Inj IV Q8H PRN Nausea And Vomiting Sodium Chloride 10 ml 03/27/22 10:00 04/02/22 09:13 Sodium Chloride 0.9% 10 Ml Flush Syringe IV 10 ml BID JULIENNE Administration Sodium Chloride 10 ml 03/26/22 22:22 Sodium Chloride 0.9% 10 Ml Flush Syringe IV PRN PRN LINE FLUSH Nutrition/Malnutrition Assess - Dietary Evaluation Nutrition/Malnutrition Findings: Nutrition Notes Start: 03/27/22 14:38 Freq: Status: Active Protocol: Document 03/27/22 14:38 NEGAR (Rec: 03/27/22 14:59 NEGAR [id number]) Nutrition Notes Need for Assessment generated from: MD Order,Education Initial or Follow up Assessment Current Diagnosis COPD,Diabetes,Hypertension Other Pertinent Diagnosis CHF, DVT/L-Foot Cellulitis, UTI. Current Diet Cardiac/Consistent Carbohydrates Diet (since B ). Labs/Tests 03/27: Na 134, BUN 5, Glu 338, HbA1c 10.5%. Pertinent Medications 03/27: Humalog 4U, others nutritionally unremarkable. Height 5 ft 5 in Weight 90.718 kg [place] Body Weight (kg) 56.81 BMI 33.3 Intake Prior to Admission Good Weight change and time frame Pt denies having loss body weight [employer]. Weight Status Obese Subjective/Other Information RD consult for dietary supplementation and nutrition education assessments. No reports available on Pt's PO intake of meals at the time , will assess at F/U; I will not prescribe Dietary Supplementation at this time, since it does not seems necessary, I will reassess at F/U. Pt is on Room Air, O2 saturation @ 98%, according to Physical Assessment History notes. Pt presents L-Foot Cellulitis, and s/p first toe amputation, according to Progress notes. Pt still in critical condition , not a candidate for Nutrition Education at the time, will assess feasibility on F/U. Percent of energy/protein needs met: Prescribed Cardiac/Consistent Carbohydrates Diet provides for energy/protein needs (1, 977 Kcal/86 g) during LOS. Burn Absent Trauma Absent GI Symptoms None Food Allergy No Skin Integrity/Comment L-Foot cellulitis. Minimum of two criteria No Fluid Accumulation N/A Reduced Filter Tip Inspector Strength N/A (non-severe) Protein-Calorie Malnutrition N\A #1 Nutrition Diagnosis No nutrition diagnosis at this time Comments: Will assess Pt's PO intake of meals and need for ONS at F/U. Is patient on ventilator? No Is Patient Ambulatory and/or Out of Bed Yes REE-([facility]-ambulatory/OOB) [ 1998.478 [id number]] Kcal/Kg value to use for calculation 17 Approximate Energy Requirements Using 1542 kcal/Kg Calculation Used for Recommendations Kcal/kg Additional Notes Protein: 1.25-1.5 g/Kg AdjBW; 93-111 g/day. Fluids: 1 ml/Kcal, or as per MD. Nutrition Intervention Change Diet Order: Continue Cardiac/Consistent Carbohydrates Diet. Follow-Up By: 04/03/22 Additional Comments Nutrition education will be provided at F/U, if feasible. Continue monitoring food tolerance, %PO intake of meals , and BM.
--- NOTE | 2022-04-02 17:10 | Procedure Note ---
Date of procedure: 04/02/22 Pre-op diagnosis: Osteomyelitis, left great toe Post-op diagnosis: same Procedure: TMA of left great toe Description of procedure: Pt was placed supine on the OR table. General anesthesia was administered. Left foot was prepped and draped. A tear drop incision was made about the left great toe and the toe amputated at the MTP joint. The 1st metatarsal head was then amputated with a bone saw. Tendons were maximally retracted and amputated. Hemostasis was obtained with the Bovie. The wound was then closed with several interrupted vertical mattress sutures of 3-0 nylon. Wound was dressed with Xeroform gauze, 4 X 4 fluffs, Kerlix wrap and a Coban wrap. Pt tolerated the procedure well. Pt was taken to PACU in stable condition. Pt can be discharged home today from my perspective. She should f/u in my office in 2 weeks or with a surgeon in her home [facility]. Diet is regular diabetic. No weight bearing on the left forefoot. Discharge on antibiotic of choice for osteomyelitis and narcotic of choice. Pt may removed dressing in 2 days and can bathe in 2 days while keeping her left foot dry. Anesthesia: other (LMA) Surgeon: ANUJ ZAMBRANO Estimated blood loss: minimal Pathology: list (1) Left great toe 2) Left 1st metatarsal head) Specimen disposition: to lab Condition: stable Disposition: PACU
[2022-04-02] MEDS ORDERED: HYDROmorphone 0.5 MG/0.5 ML INJ ONE (17:19)
[2022-04-02] MEDS: HYDROmorphone 0.5 MG/0.5 ML INJ IV PRN ×2 (17:20→17:31)
--- NOTE | 2022-04-02 17:26 | Progress Note ---
Assessment and Plan Cultures: Blood culture no growth so far Urine culture no growth so far A/P: 87-year-old female with numerous medical comorbidities now with #Left great toe osteomyelitis: With cellulitis and abscess. Pending amputation. #PVD: Status post revascularization #DM2: tight glycemic control for best outcomes. Recs: -Continue empiric antibiotics for now. -Pending amputation which should be curative of osteomyelitis -Obtain cultures from abscess Thank you for the consult, we will continue to follow. Sae Mcelroy MD [facility] ([facility]) O: [phone] F: [phone] Subjective Date of service: 04/02/22 Principal diagnosis: PVD with left first toe wound Interval history: Afebrile, normal white count for amputation today Objective - Exam Narrative Exam: Physical Exam: Constitutional: Alert, cooperative. No acute distress Head, Ears, Nose: Normocephalic, atraumatic. External ears, nose normal Eyes: Conjunctivae/corneas clear. No icterus. No ptosis. Neck: Supple, no meningeal signs Oral: dentition fair, no thrush Cardiovascular: S1, S2 normal. Respiratory: Good air entry, clear to auscultation bilaterally GI: Soft, non-tender; bowel sounds normal. No peritoneal signs. Musculoskeletal: L great toe partial amputation Skin: No rash or abscess Hem/Lymphatic: No palpable cervical or supraclavicular nodes. No lymphangitis Psych: Mood ok. Affect normal Neurological: Awake, alert, oriented. No gross abnormality - Constitutional Vitals: Vital Signs Temp Pulse Resp BP Pulse Ox 98.6 F 90 16 143/94 100 04/02/22 08:29 04/02/22 09:11 04/02/22 08:29 04/02/22 08:29 04/02/22 03:38 Temperature -Last 24 Hours Temperature 98.6 F Temperature 98.4 F Temperature 97.3 F Temperature 98.5 F - Labs CBC & Chem 7: 04/02/22 04:30 04/02/22 04:30 Labs: Abnormal lab results 04/01/22 04/02/22 04/02/22 Range/Units 22:11 04:30 04:30 MCH 27 L (28-32) pg RDW 17.1 H (13.2-15.2) % Lymph % (Auto) 37.7 H (13.4-35.0) % [place] % (Auto) 8.1 H (0.0-7.3) % Baso % (Auto) 2.2 H (0.0-1.8) % Baso # (Auto) 0.2 H (0.0-0.1) K/mm3 Creatinine 0.5 L (0.6-1.2) mg/dL Glucose 254 H (65-100) mg/dL POC Glucose 267 H (70-105) mg/dL 04/02/22 04/02/22 Range/Units 07:52 11:31 MCH (28-32) pg RDW (13.2-15.2) % Lymph % (Auto) (13.4-35.0) % [place] % (Auto) (0.0-7.3) % Baso % (Auto) (0.0-1.8) % Baso # (Auto) (0.0-0.1) K/mm3 Creatinine (0.6-1.2) mg/dL Glucose (65-100) mg/dL POC Glucose 181 H 171 H (70-105) mg/dL
[2022-04-02] MEDS ORDERED: ONDANSETRON 4 MG/2 ML INJ IV PRN (17:30)
[2022-04-02] MEDS ORDERED: HYDROmorphone 0.5 MG/0.5 ML INJ IV PRN (17:30)
--- NOTE | 2022-04-02 17:46 | Post Anesthesia Evaluation ---
- Post Anesthesia Evaluation Patient Participated: Yes Airway Patent: Yes Stable Respiratory Function: Yes Nausea/Vomiting: No Temp > 96.8F: Yes Pain Manageable: Yes Adequeate Hydration: Yes Anesthesia Complications: No Block Receding Appropriately: Not Applicable Patient on Ventilator: No
[2022-04-03] MEDS: MORPHINE 2 MG/1 ML INJ IV PRN ×4 (01:24→21:59)
[2022-04-03] MEDS: CEFEPIME/NS 2 GM/100 ML 2 GM/100 ML BAG IV SCH ×2 (01:24→14:38)
[2022-04-03] MEDS: metroNIDAZOLE/NS 500 MG/100 ML 500 MG/100 ML BAG IV SCH ×2 (03:40→13:53)
[2022-04-03] MEDS: GABAPENTIN 100 MG CAP PO SCH ×3 (06:10→21:56)
[2022-04-03 09:32] LABS: Hematocrit 38.6 % (30.3-42.9); Mean Corpuscular HGB Conc 34 % (30-34); Mean Corpuscular Volume 82 fl (79-97); Platelet Count 387 K/mm3 (140-440)
[2022-04-03] MEDS: glipiZIDE 5 MG TAB PO SCH ×2 (09:38→21:57)
[2022-04-03] MEDS: hydroCHLOROthiazide 12.5 MG CAP PO SCH (09:39)
[2022-04-03] MEDS: LISINOPRIL 10 MG TAB PO SCH (09:39)
[2022-04-03] MEDS: INSULIN NPH/REGULAR 70/30 INJ SUB-Q SCH ×2 (09:41→17:44)
[2022-04-03] MEDS: INSULIN REGULAR, HUMAN 100 UNITS/1 ML SUB-Q SCH ×4 (09:41→22:00)
[2022-04-03] MEDS: CLOTRIMAZOLE/BETAMETHASONE CREAM 15 GM TP SCH ×2 (09:45→22:04)
[2022-04-03 09:55] LABS: Blood Urea Nitrogen 12 mg/dL (7-17); Calcium 9.4 mg/dL (8.4-10.2); Hemolysis Index 9
[2022-04-03 09:56] LABS: BUN/Creatinine Ratio 20
[2022-04-03] MEDS ORDERED: VANCOMYCIN 1,250 MG in SODIUM CHLORIDE 0.9% 250ML 250 ML IV SCH (10:00)
[2022-04-03] MEDS: FAMOTIDINE 20 MG TAB PO SCH ×2 (10:10→21:56)
[2022-04-03] MEDS: LORATADINE/PSEUDOEPHEDRINE 5-120 MG TAB 12HR PO SCH ×3 (10:11→22:39)
[2022-04-03] MEDS: ALPRAZolam 0.25 MG TAB PO PRN (13:51)
[2022-04-03] MEDS ORDERED: SODIUM CHLORIDE 0.9% 250ML 250 ML ONE (14:16)
--- NOTE | 2022-04-03 15:17 | Progress Note ---
Assessment and Plan Cultures: Blood culture no growth so far Urine culture no growth so far A/P: 87-year-old female with numerous medical comorbidities now with #Left great toe osteomyelitis: With cellulitis and abscess. Pending amputation. #PVD: Status post revascularization #DM2: tight glycemic control for best outcomes. Recs: -Can DC with 10 days of Levaquin 750mg q24h, Bactrim DS q12h Thank you for the consult, we will continue to follow. Sae Mcelroy MD [facility] ([facility]) O: [phone] F: [phone] Subjective Date of service: 04/03/22 Principal diagnosis: PVD with left first toe wound Interval history: Afebrile, normal white count. Status post amputation of the left great toe. Objective - Exam Narrative Exam: Physical Exam: Constitutional: Alert, cooperative. No acute distress Head, Ears, Nose: Normocephalic, atraumatic. External ears, nose normal Eyes: Conjunctivae/corneas clear. No icterus. No ptosis. Neck: Supple, no meningeal signs Oral: dentition fair, no thrush Cardiovascular: S1, S2 normal. Respiratory: Good air entry, clear to auscultation bilaterally GI: Soft, non-tender; bowel sounds normal. No peritoneal signs. Musculoskeletal: L great toe partial amputation Skin: No rash or abscess Hem/Lymphatic: No palpable cervical or supraclavicular nodes. No lymphangitis Psych: Mood ok. Affect normal Neurological: Awake, alert, oriented. No gross abnormality - Constitutional Vitals: Vital Signs Temp Pulse Resp BP Pulse Ox 98.6 F 93 H 16 134/67 99 04/03/22 07:29 04/03/22 07:29 04/02/22 19:38 04/03/22 09:39 04/03/22 07:29 Temperature -Last 24 Hours Temperature 98.6 F Temperature 99.2 F Temperature 98.3 F Temperature 97.8 F - Labs CBC & Chem 7: 04/03/22 09:09 04/03/22 09:09 Labs: Abnormal lab results 04/02/22 04/03/22 04/03/22 Range/Units 20:55 07:30 09:09 RDW 17.0 H (13.2-15.2) % Sodium (137-145) mmol/L Chloride (98-107) mmol/L Glucose (65-100) mg/dL POC Glucose 141 H 256 H (70-105) mg/dL 04/03/22 04/03/22 Range/Units 09:09 11:53 RDW (13.2-15.2) % Sodium 135 L (137-145) mmol/L Chloride 97.9 L (98-107) mmol/L Glucose 301 H (65-100) mg/dL POC Glucose 265 H (70-105) mg/dL
[2022-04-03] MEDS ORDERED: INSULIN NPH/REGULAR 70/30 INJ SUB-Q SCH (18:40)
--- NOTE | 2022-04-03 18:45 | Progress Note ---
Assessment and Plan Assessment and plan: #Sepsis-improving #Cellulitis of the left foot #Diabetic foot ulcer #Osteomyelitis of great left toe s/p amputation -afebrile, HR improving -BCx 03/26: NGTD x 72hrs -nfectious disease consulted; appreciate recs. Discontinuing vancomycin, flagyl, and ceftriaxone. Starting po levaquin 750mg daily and bactrim DS BID x10 days (completes on 04/13/2022). -LLE arterial doppler abnormal; LLE venous doppler negative for DVT -LLE MRI shows Acute osteomyelitis of the great toe proximal phalanx with soft tissue abscess with cellulitis -tight glucose control to promote healing -General surgery consulted; appreciate recs. Status post amputation of L great toe -Vascular surgery following, assistance appreciated #Type II Diabetes Mellitus with hyperglycemiaimproving -will order A1C; patient reports A1C of 10% in December 2021 -takes metformin and glipizide outpatient; has previously used insulin but thought blood sugars were subjectively too low (in 80s) -continue SSI with accuchecks TID WM -Continue NPH 70/30 35 units twice daily. -Continue glipizide -goal glucose 140-180 #Right upper extremity swelling -RUE swelling after IV infiltrated, IV removed -warm compresses -RUE venous doppler ordered #Volume depletion-resolved -likely secondary to hyperglycemia -IVFs discontinued #UTIruled out #Vulvar candidasis -UA shows WBC, but patient has no symptoms; urine culture pending -diflucan x1 #Hypertension -continue home BP medications -goal SBP <160 while inpatient #History of DVT -Patient currently taking Xarelto and unknown dose -continue Xarelto #History of COPD -controlled, patient not taking medications at home #Tobacco dependence #Tobacco/Smoking cessation counseling - Counseled patient about the importance of smoking cessation and the possible sequelae as a result of continued tobacco consumption. The patient expresses understanding. Patient reviews nicotine patch. -Time: +15 mins #Obesity #Weight loss counseling #Exercise counseling - BMI 33.3 - Counseled patient on the importance of weight loss, incorporating exercise, and dietary changes (lean meats, fresh fruits and vegetables, and water intake). Patient expresses understanding. - Time: +15 min #Advanced care planning -Disease education conducted, care plan discussed, diagnoses discussed, prognosis discussed, and patient acknowledges understanding with care plan -Time: +30 min Disposition Plan: Pending discharge home tomorrow Total Time Spent with Patient (Minutes): 45 min History Interval history: No acute events overnight. Hospitalist Physical - Constitutional Vitals: Temp Pulse Resp BP Pulse Ox 98.9 F 96 H 16 147/67 100 04/03/22 16:18 04/03/22 16:18 04/02/22 19:38 04/03/22 16:18 04/03/22 16:18 General appearance: Present: no acute distress, well-nourished, obese - EENT Eyes: Present: PERRL, EOM intact ENT: hearing intact, clear oral mucosa, edentulous - Neck Neck: Present: supple, normal ROM - Respiratory Respiratory effort: normal Respiratory: bilateral: CTA - Cardiovascular Rhythm: regular Heart Sounds: Present: S1 & S2 - Extremities Extremities: no ischemia, pulses intact, pulses symmetrical, No edema, normal temperature, normal color, abnormal (amputation of L great toe) Peripheral Pulses: within normal limits - Abdominal General gastrointestinal: soft, non-tender, non-distended, normal bowel sounds - Integumentary Integumentary: Present: clear, warm, dry - Psychiatric Psychiatric: appropriate mood/affect, intact judgment & insight, memory intact, cooperative - Neurologic Neurologic: CNII-XII intact, moves all extremities - Allied Health Allied health notes reviewed: nursing Results - Labs CBC & Chem 7: 04/03/22 09:09 04/03/22 09:09 Labs: Laboratory Last Values WBC 8.6 K/mm3 (4.5-11.0) 04/03/22 09:09 RBC 4.70 M/mm3 (3.65-5.03) 04/03/22 09:09 Hgb 13.0 gm/dl (10.1-14.3) 04/03/22 09:09 Hct 38.6 % (30.3-42.9) 04/03/22 09:09 MCV 82 fl (79-97) 04/03/22 09:09 MCH 28 pg (28-32) 04/03/22 09:09 MCHC 34 % (30-34) 04/03/22 09:09 RDW 17.0 % (13.2-15.2) H 04/03/22 09:09 Plt Count 387 K/mm3 (140-440) 04/03/22 09:09 Lymph % (Auto) 37.7 % (13.4-35.0) H 04/02/22 04:30 [place] % (Auto) 8.1 % (0.0-7.3) H 04/02/22 04:30 Eos % (Auto) 3.4 % (0.0-4.3) 04/02/22 04:30 Baso % (Auto) 2.2 % (0.0-1.8) H 04/02/22 04:30 Lymph # (Auto) 2.8 K/mm3 (1.2-5.4) 04/02/22 04:30 [place] # (Auto) 0.6 K/mm3 (0.0-0.8) 04/02/22 04:30 Eos # (Auto) 0.3 K/mm3 (0.0-0.4) 04/02/22 04:30 Baso # (Auto) 0.2 K/mm3 (0.0-0.1) H 04/02/22 04:30 Seg Neutrophils % 48.6 % (40.0-70.0) 04/02/22 04:30 Seg Neutrophils # 3.6 K/mm3 (1.8-7.7) 04/02/22 04:30 ESR 18 mm/Hr (0-20) 03/26/22 21:23 PT 13.1 Sec. (12.2-14.9) 03/26/22 21:23 INR 0.90 (0.87-1.13) 03/26/22 21:23 APTT 28.6 Sec. (24.2-36.6) 03/26/22 21:23 VBG pH 7.404 (7.320-7.420) 03/26/22 21:23 Sodium 135 mmol/L (137-145) L 04/03/22 09:09 Potassium 4.7 mmol/L (3.6-5.0) 04/03/22 09:09 Chloride 97.9 mmol/L (98-107) L 04/03/22 09:09 Carbon Dioxide 25 mmol/L (22-30) 04/03/22 09:09 Anion Gap 17 mmol/L 04/03/22 09:09 BUN 12 mg/dL (7-17) 04/03/22 09:09 Creatinine 0.6 mg/dL (0.6-1.2) 04/03/22 09:09 Estimated GFR > 60 ml/min 04/03/22 09:09 BUN/Creatinine Ratio 20 % 04/03/22 09:09 Glucose 301 mg/dL (65-100) H 04/03/22 09:09 POC Glucose 286 mg/dL (70-105) H 04/03/22 15:57 Hemoglobin A1c 12.3 % (4-6) H 03/30/22 11:45 Calcium 9.4 mg/dL (8.4-10.2) 04/03/22 09:09 Magnesium 2.00 mg/dL (1.7-2.3) 03/26/22 21:23 Total Bilirubin 0.70 mg/dL (0.1-1.2) 03/26/22 12:51 AST 12 units/L (5-40) 03/26/22 12:51 ALT 9 units/L (7-56) 03/26/22 12:51 Alkaline Phosphatase 112 units/L (35-129) 03/26/22 12:51 Total Creatine Kinase 56 units/L (30-135) 03/26/22 21:23 C-Reactive Protein 3.90 mg/dL (0.00-1.30) H 03/26/22 21:23 Total Protein 10.0 g/dL (6.3-8.2) H 03/26/22 12:51 Albumin 4.9 g/dL (3.9-5) 03/26/22 12:51 Albumin/Globulin Ratio 1.0 % 03/26/22 12:51 HCG, Quant < 2 mIU/mL (0-4) 03/26/22 21:23 Urine Color Straw (Yellow) 03/26/22 Unknown Urine Turbidity Clear (Clear) 03/26/22 Unknown Urine pH 6.0 (5.0-7.0) 03/26/22 Unknown Ur Specific [place] 1.010 (1.003-1.030) 03/26/22 Unknown Urine Protein <15 mg/dl mg/dL (Negative) 03/26/22 Unknown Urine Glucose (UA) Trace mg/dL (Negative) 03/26/22 Unknown Urine Ketones Trace mg/dL (Negative) 03/26/22 Unknown Urine Blood Trace (Negative) 03/26/22 Unknown Urine Nitrite Negative (Negative) 03/26/22 Unknown Ur Reducing Substances Not Reportable 03/26/22 Unknown Urine Bilirubin Negative (Negative) 03/26/22 Unknown Urine Ictotest Not Reportable 03/26/22 Unknown Urine Urobilinogen < 2.0 mg/dL (<2.0) 03/26/22 Unknown Ur Leukocyte Esterase Trace (Negative) 03/26/22 Unknown Urine WBC (Auto) 48.0 /HPF (0.0-6.0) H 03/26/22 Unknown Urine RBC (Auto) 7.0 /HPF (0.0-6.0) 03/26/22 Unknown U Epithel Cells (Auto) 5.0 /HPF (0-13.0) 03/26/22 Unknown Urine Mucus Few /HPF 03/26/22 Unknown Urine Yeast (Budding) Few /HPF 03/26/22 Unknown Vancomycin Trough 12.7 ug/mL (5.0-20.0) 03/29/22 18:40 Ver[place]go/IV: Voiding Method Toilet Active Medications - Current Medications Current Medications: Generic Name Dose Route Start Last Admin Trade Name Freq PRN Reason Stop Dose Admin Acetaminophen 650 mg 03/26/22 22:22 03/28/22 16:16 Acetaminophen 325 Mg Tab PO 650 mg Q4H PRN Administration Pain MILD(1-3)/Fever >100.5/RICH Alprazolam 0.25 mg 03/27/22 11:00 04/03/22 13:51 Alprazolam 0.25 Mg Tab PO 04/04/22 10:59 0.25 mg BID PRN Administration Anxiety Atorvastatin Calcium 40 mg 03/27/22 22:00 04/02/22 20:59 Atorvastatin 40 Mg Tab PO 40 mg QHS JULIENNE Administration Clotrimazole 1 applic 03/29/22 18:00 04/03/22 09:45 Clotrimazole/Betamethasone Cream 15 Gm TP 1 applic BID JULIENNE Administration Dextrose 50 ml 03/26/22 22:22 Dextrose 50% In Water (25gm) 50 Ml Syringe IV Q30MIN PRN Hypoglycemia Protocol Famotidine 20 mg 03/27/22 10:00 04/03/22 10:10 Famotidine 20 Mg Tab PO 20 mg BID JULIENNE Administration Gabapentin 100 mg 03/27/22 08:00 04/03/22 13:51 Gabapentin 100 Mg Cap PO 100 mg Q8HR JULIENNE Administration Glipizide 5 mg 03/30/22 22:00 04/03/22 09:38 Glipizide 5 Mg Tab PO 5 mg BID JULIENNE Administration Hydrochlorothiazide 12.5 mg 03/27/22 10:00 04/03/22 09:39 Hydrochlorothiazide 12.5 Mg Cap PO 12.5 mg QDAY JULIENNE Administration Insulin Human Isoph/Insulin Regular 35 unit 04/03/22 18:40 Insulin Nph/Regular 70/30 Inj SUB-Q BIDDIAB JULIENNE Insulin Human Regular 0 units 04/01/22 11:30 04/03/22 17:45 Insulin Regular, Human 100 Units/1 Ml SUB-Q 4 units ACHS JULIENNE Administration Protocol Levofloxacin 750 mg 04/04/22 10:00 Levofloxacin 750 Mg Tab PO 04/14/22 09:59 Q24HR [facility] Protocol Lisinopril 10 mg 03/27/22 10:00 04/03/22 09:39 Lisinopril 10 Mg Tab PO 10 mg DAILY JULIENNE Administration Loratadine/Pseudoephedrine Sulfate 1 each 04/02/22 10:00 04/03/22 10:11 Loratadine/Pseudoephedrine 5-120 Mg Tab 12hr PO 1 each Q12HR JULIENNE Administration Magnesium Hydroxide 30 ml 03/26/22 22:22 Magnesium Hydroxide (Mom) Oral Liqd Udc PO Q4H PRN Constipation Morphine Sulfate 2 mg 03/26/22 22:22 04/03/22 17:45 Morphine 2 Mg/1 Ml Inj IV 2 mg Q4H PRN Administration Pain, Moderate (4-6) Morphine Sulfate 4 mg 03/26/22 22:22 04/02/22 06:13 Morphine 4 Mg/1 Ml Inj IV 4 mg Q4H PRN Administration Pain , Severe (7-10) Ondansetron HCl 4 mg 03/26/22 22:22 Ondansetron 4 Mg/2 Ml Inj IV Q8H PRN Nausea And Vomiting Sodium Chloride 10 ml 03/27/22 10:00 04/03/22 09:45 Sodium Chloride 0.9% 10 Ml Flush Syringe IV 10 ml BID JULIENNE Administration Sodium Chloride 10 ml 03/26/22 22:22 Sodium Chloride 0.9% 10 Ml Flush Syringe IV PRN PRN LINE FLUSH Trimethoprim/Sulfamethoxazole 1 each 04/03/22 22:00 Sulfamethoxazole/Trimethoprim 800/160mg Ds Tab PO 04/13/22 21:59 Q12HR JULIENNE Protocol Nutrition/Malnutrition Assess - Dietary Evaluation Nutrition/Malnutrition Findings: Nutrition Notes Start: 03/27/22 14:38 Freq: Status: Active Protocol: Document 04/03/22 14:06 NEGAR (Rec: 04/03/22 14:46 NEGAR [id number]) Nutrition Notes Initial or Follow up Reassessment Current Diagnosis COPD,Diabetes,Hypertension Other Pertinent Diagnosis CHF, DVT, R-UE Swelling, s/p L -Great Toe Amputation, Hyperglycemia, ... Current Diet Cardiac/Consistent Carbohydrates Diet + D Suppl ( since D 04/03). Labs/Tests 04/03: Na 135, Cl 97.9, Glu 301. Pertinent Medications 04/03: Humulin 70/30 30U, Humulin R 4U, others nutritionally unremarkable. Height 5 ft 5 in Weight 90.7 kg [place] Body Weight (kg) 56.81 BMI 33.3 Weight change and time frame 0.018 Kg body weight loss in 1 week reported. Weight Status Obese Subjective/Other Information RD consult for routine F/U on dietary advancement. No reports available on Pt's PO intake of meals at the time , will assess at F/U. I will change the diet to Cardiac/Consistent Carbohydrates Diet to support the Pt's heart conditions, along with the diabetes. Pt is on Room Air, O2 saturation @ 100%, according to Physical Assessment History notes. Pt has missing teeth, according to Physical Assessment History notes. Procedure on 04/02: L-Great Toe Amputation, well tolerated , according to Procedure notes . I will prescribe dietary supplementation to enhance Protein intake, to support wound healing processes. Pt still in critical condition , not a candidate for Nutrition Education at the time, will assess feasibility on F/U. Percent of energy/protein needs met: Prescribed Cardiac/Consistent Carbohydrates Diet provides for energy/protein needs (1, 977 Kcal/86 g) during LOS; additionally, Dietary Supplements will support wound healing processes with 440 Kcal and 20 g of protein. Burn Absent Trauma Absent GI Symptoms None Food Allergy No Skin Integrity/Comment L-foot surgical wound. Minimum of two criteria No Fluid Accumulation N/A Reduced Accordion Maker Strength N/A (non-severe) Protein-Calorie Malnutrition N\A #2 Nutrition Diagnosis Altered nutrition-related laboratory values Comments: Current Diet: Consistent Carbohydrates. Etiology Heart conditions. As Evidenced by Signs and Symptoms DVT, HTN, CHF, R-UE Swelling. #1 Nutrition Diagnosis Increased nutrient needs ( specify in comment below) Comments: Protein, to support wound healing processes. Etiology Uncontrolled T2DM. As Evidenced by Signs and Symptoms L-Great Toe Amputation. Is patient on ventilator? No Is Patient Ambulatory and/or Out of Bed Yes REE-([facility]-ambulatory/OOB) [ 1999.244 [id number]] Kcal/Kg value to use for calculation 17 Approximate Energy Requirements Using 1542 kcal/Kg Calculation Used for Recommendations Kcal/kg Additional Notes Protein: 1.25-1.5 g/Kg AdjBW; 93-111 g/day. Fluids: 1 ml/Kcal, or as per MD. Nutrition Intervention Change Diet Order: Modify to Cardiac/Consistent Carbohydrates Diet. Add Supplement/Snack (indicate name/kcal Start 8 fl oz Glucerna; BID. /protein ) Provides kCal: 440 Provides Protein (gm) 40 Goal #1 Support, through dietary supplementation, wound healing processes during LOS. Goal #2 Adjust the dietary intervention to better serve Pt's needs and clinical conditions during LOS. Follow-Up By: 04/10/22 Additional Comments Nutrition education will be provided at F/U, if feasible. Continue monitoring food tolerance, %PO intake of meals , and BM.
[2022-04-03] MEDS: SULFAMETHOXAZOLE/TRIMETHOPRIM 800/160MG DS TAB PO SCH (21:59)
[2022-04-04] MEDS: MORPHINE 2 MG/1 ML INJ IV PRN ×2 (04:33→09:33)
[2022-04-04] MEDS: GABAPENTIN 100 MG CAP PO SCH (06:54)
[2022-04-04 07:38] VITALS: BP 144/62
[2022-04-04] MEDS: INSULIN REGULAR, HUMAN 100 UNITS/1 ML SUB-Q SCH ×2 (08:00→11:40)
[2022-04-04] MEDS: SULFAMETHOXAZOLE/TRIMETHOPRIM 800/160MG DS TAB PO SCH (09:32)
[2022-04-04] MEDS: LISINOPRIL 10 MG TAB PO SCH (09:32)
[2022-04-04] MEDS: hydroCHLOROthiazide 12.5 MG CAP PO SCH (09:32)
[2022-04-04] MEDS: FAMOTIDINE 20 MG TAB PO SCH (09:32)
[2022-04-04] MEDS: glipiZIDE 5 MG TAB PO SCH (09:32)
[2022-04-04] MEDS: LORATADINE/PSEUDOEPHEDRINE 5-120 MG TAB 12HR PO SCH (09:39)
[2022-04-04] MEDS: CLOTRIMAZOLE/BETAMETHASONE CREAM 15 GM TP SCH (09:40)
[2022-04-04] MEDS ORDERED: levoFLOXacin 750 MG TAB PO SCH (10:00)
--- NOTE | 2022-04-04 10:42 | Discharge Summary ---
Providers - Providers Date of Admission: 03/26/22 22:24 Date of discharge: 04/04/22 Attending physician: ANJEL MCCOY MD 03/26/22 21:12 Consult to Physician [CONS] Urgent Comment: Dr. Lloyd spoke with Dr. Lu @ [phone] Consulting Provider: RO LU Physician Instructions: Reason For Exam: infected lower ext wound 03/26/22 22:25 Consult to Dietitian/Nutrition [CONS] Routine Physician Instructions: Reason For Exam: Reason for Consult: Diet education 03/28/22 07:48 Consult to Physician [CONS] Routine Comment: Consulting Provider: MARCEL JACOB Physician Instructions: Reason For Exam: abnormal art u/s. nonhealing left great toe wound 03/31/22 11:32 Consult to Physician [CONS] Routine Comment: Consulting Provider: AMPARO MARQUES Physician Instructions: Reason For Exam: osteomyelitis abx recommendations 03/31/22 13:51 Consult to Physician [CONS] Routine Comment: already discussed with dr menendez Consulting Provider: ANUJ MENENDEZ Physician Instructions: Reason For Exam: please eval for amp - left great toe 04/01/22 10:27 Physical Therapy Evaluation and Treat [CONS] Routine Comment: Reason For Exam: Evaluate mobility s/p amputation Primary care physician: [employer] Hospitalization Reason for admission: Diabetic foot ulcer, osteomyelitis of left great toe, sepsis Condition: Good Pertinent studies: Reviewed. Procedures: Amputation of left great toe; diagnostic angiogram of bilateral lower extremities Hospital course: Patient is a 47-year-old female past medical history of insulin-dependent type 2 diabetes mellitus, congestive heart failure, hypertension, arthritis, COPD, history of DVT, tobacco dependence, asthma, and obesity who presented to the ED with complaints of left foot pain with an associated wound. Patient described her left great toe is having significant swelling, warmth, and burning sensation. Patient described having a foot surgery performed in [place], [place] in January 2022 but now following up with outpatient basis with her surgeon. Patient denies any fevers, chills, nausea, vomiting, altered mentation, or abdominal pain. In the ED, the patient was found to be hemodynamically stable but labs were remarkable for acute cystitis, hyperglycemia with a blood glucose of 455, and a CRP of 3.90. Patient underwent CT evaluation of her left foot that remarkable for soft tissue ulcers secondary to cellulitis; however, it did not reveal osteomyelitis. Patient underwent MRI of her left lower extremity that revealed acute osteomyelitis of the great toe proximal phalanx with soft tissue abscess and cellulitis. There is also nondisplaced fracture of the proximal phalanx of the fifth toe with no definite intra-articular extension. General surgery and vascular surgery were consulted for additional management. The patient underwent diagnostic angiography of her bilateral lower extremities that was unremarkable for significant arterial disease of her left lower extremity. General surgery performed amputation of her left great toe. Infec tious disease was consulted for antibiotic management, and antibiotics were transitioned from IV to p.o. The patient was counseled at length about following up with her providers, completing her course of antibiotics, and tight glycemic control. Patient expresses understanding. Patient is medically clear for discharge. Disposition: 01 HOME / SELF CARE / HOMELESS Final Discharge Diagnosis (Prints w/discharge instructions): Osteomyelitis of left great toe status post amputation, diabetic foot ulcer, cellulitis of left foot, sepsis, type 2 diabetes mellitus with hyperglycemia, right upper extremity swelling, volume depletion, acute cystitis without hematuria, vulvar candidiasis, hypertension, history of DVT, history of COPD, tobacco dependence, obesity. Time spent for discharge: 45 min Core Measure Documentation - Palliative Care Palliative Care/ Comfort Measures: Not Applicable - Core Measures Any of the following diagnoses?: history only Exam - Constitutional Vitals: Temp Pulse Resp BP Pulse Ox 97.6 F 75 16 144/62 97 04/04/22 07:30 04/04/22 07:30 04/04/22 07:30 04/04/22 07:30 04/04/22 07:30 General appearance: Present: no acute distress, well-nourished, obese - EENT Eyes: Present: PERRL, EOM intact ENT: hearing intact, clear oral mucosa, dentition normal - Neck Neck: Present: supple, normal ROM - Respiratory Respiratory effort: normal Respiratory: bilateral: CTA - Cardiovascular Rhythm: regular Heart Sounds: Present: S1 & S2 - Extremities Extremities: no ischemia, pulses intact, pulses symmetrical, normal temperature, normal color, Full ROM, abnormal (Amputation of left great toe) Peripheral Pulses: within normal limits - Abdominal General gastrointestinal: Present: soft, non-tender, non-distended, normal bowel sounds Female genitourinary: Present: deferred - Rectal Rectal Exam: deferred - Integumentary Integumentary: Present: clear, warm, dry - Musculoskeletal Musculoskeletal: strength equal bilaterally - Psychiatric Psychiatric: appropriate mood/affect, intact judgment & insight, memory intact, cooperative - Neurologic Neurologic: CNII-XII intact, moves all extremities - Allied Health Allied health notes reviewed: nursing Plan Activity: advance as tolerated Diet: low salt, diabetic Additional Instructions: Patient is a 47-year-old female past medical history of insulin-dependent type 2 diabetes mellitus, congestive heart failure, hypertension, arthritis, COPD, history of DVT, tobacco dependence, asthma, and obesity who presented to the ED with complaints of left foot pain with an associated wound. Patient described her left great toe is having significant swelling, warmth, and burning sensation. Patient described having a foot surgery performed in [place], [place] in January 2022 but now following up with outpatient basis with her surgeon. Patient denies any fevers, chills, nausea, vomiting, altered mentation, or abdominal pain. In the ED, the patient was found to be hemodynamically stable but labs were remarkable for acute cystitis, hyperglycemia with a blood glucose of 455, and a CRP of 3.90. Patient underwent CT evaluation of her left foot that remarkable for soft tissue ulcers secondary to cellulitis; however, it did not reveal osteomyelitis. Patient underwent MRI of her left lower extremity that revealed acute osteomyelitis of the great toe proximal phalanx with soft tissue abscess and cellulitis. There is also nondisplaced fracture of the proximal phalanx of the fifth toe with no definite intra-articular extension. General surgery and vascular surgery were consulted for additional management. The patient underwent diagnostic angiography of her bilateral lower extremities that was unremarkable for significant arterial disease of her left lower extremity. General surgery performed amputation of her left great toe. Infectious disease was consulted for antibiotic management, and antibiotics were transitioned from IV to p.o. The patient was counseled at length about following up with her providers, completing her course of antibiot ics, and tight glycemic control. Patient expresses understanding. Patient is medically clear for discharge. Care Plan Goals: Patient is medically clear for discharge. Assessment: Patient is a 47-year-old female past medical history of insulin-dependent type 2 diabetes mellitus, congestive heart failure, hypertension, arthritis, COPD, history of DVT, tobacco dependence, asthma, and obesity who presented to the ED with complaints of left foot pain with an associated wound. Patient described her left great toe is having significant swelling, warmth, and burning sensation. Patient described having a foot surgery performed in [place], [place] in January 2022 but now following up with outpatient basis with her surgeon. Patient denies any fevers, chills, nausea, vomiting, altered mentation, or abdominal pain. In the ED, the patient was found to be hemodynamically stable but labs were remarkable for acute cystitis, hyperglycemia with a blood glucose of 455, and a CRP of 3.90. Patient underwent CT evaluation of her left foot that remarkable for soft tissue ulcers secondary to cellulitis; however, it did not reveal osteomyelitis. Patient underwent MRI of her left lower extremity that revealed acute osteomyelitis of the great toe proximal phalanx with soft tissue abscess and cellulitis. There is also nondisplaced fracture of the proxi mal phalanx of the fifth toe with no definite intra-articular extension. General surgery and vascular surgery were consulted for additional management. The patient underwent diagnostic angiography of her bilateral lower extremities that was unremarkable for significant arterial disease of her left lower extremity. General surgery performed amputation of her left great toe. Infectious disease was consulted for antibiotic management, and antibiotics were transitioned from IV to p.o. The patient was counseled at length about following up with her providers, completing her course of antibiotics, and tight glycemic control. Patient expresses understanding. Patient is medically clear for discharge. Follow up with: PRIMARY CARE, [Primary Care Provider] - 3-5 Days ANUJ MENENDEZ MD [Staff Physician] - 7 Days AMPARO MARQUES MD [Staff Physician] - 14 Days Prescriptions: AtorvaSTATin [Lipitor] 40 mg PO QHS #30 tablet Fluticasone/Salmeterol [Advair Diskus 100-50 mcg] 2 puff INHALATION DAILY PRN #1 inhalation PRN Reason: Congestion Sulfamethoxazole/Trimethoprim [Bactrim DS TAB] 1 each PO Q12HR #20 tablet metFORMIN [Glucophage] 500 mg PO DAILY #30 tab glipiZIDE [Glucotrol] 10 mg PO BID #60 tab hydroCHLOROthiazide [HCTZ] 12.5 mg PO QDAY #30 capsule levoFLOXacin [Levaquin TAB] 750 mg PO Q24HR #10 tablet lisinopriL [Lisinopril] 10 mg PO DAILY #30 tab Insulin NPH/Regular [NovoLIN 70/30] 35 unit SUB-Q BIDDIAB #1 vial Albuterol Mdi (or & Nicu Only) [ProAir HFA Inhaler] 2 puff IH QID PRN #1 inhalation PRN Reason: Shortness Of Breath ALPRAZolam [Xanax TAB] 0.25 mg PO BID PRN #60 tab PRN Reason: Anxiety
--- NOTE | 2022-04-04 15:19 | Progress Note ---
Assessment and Plan Cultures: Blood culture no growth so far Urine culture no growth so far A/P: 87-year-old female with numerous medical comorbidities now with #Left great toe osteomyelitis: With cellulitis and abscess. Pending amputation. #PVD: Status post revascularization #DM2: tight glycemic control for best outcomes. Recs: -Can DC with 10 days of Levaquin 750mg q24h, Bactrim DS q12h Thank you for the consult, we will continue to follow. Sae Mcelroy MD [facility] O: [phone] F: [phone] Subjective Date of service: 04/04/22 Principal diagnosis: PVD with left first toe wound Interval history: Afebrile, normal white count. Objective - Exam Narrative Exam: Physical Exam: Constitutional: Alert, cooperative. No acute distress Head, Ears, Nose: Normocephalic, atraumatic. External ears, nose normal Eyes: Conjunctivae/corneas clear. No icterus. No ptosis. Neck: Supple, no meningeal signs Oral: dentition fair, no thrush Cardiovascular: S1, S2 normal. Respiratory: Good air entry, clear to auscultation bilaterally GI: Soft, non-tender; bowel sounds normal. No peritoneal signs. Musculoskeletal: L great toe partial amputation Skin: No rash or abscess Hem/Lymphatic: No palpable cervical or supraclavicular nodes. No lymphangitis Psych: Mood ok. Affect normal Neurological: Awake, alert, oriented. No gross abnormality - Constitutional Vitals: Vital Signs Temp Pulse Resp BP Pulse Ox 97.6 F 75 16 144/62 97 04/04/22 07:30 04/04/22 07:30 04/04/22 07:30 04/04/22 07:30 04/04/22 10:00 Temperature -Last 24 Hours Temperature 97.6 F Temperature 98.9 F Temperature 98.8 F Temperature 98.9 F Temperature 98.7 F Temperature 98.9 F - Labs CBC & Chem 7: 04/03/22 09:09 04/03/22 09:09 Labs: Abnormal lab results 04/03/22 04/03/22 04/04/22 Range/Units 15:57 21:03 07:49 POC Glucose 286 H 209 H 216 H (70-105) mg/dL 04/04/22 Range/Units 11:42 POC Glucose 310 H (70-105) mg/dL
== END 2022-04-04 14:20 | disposition home or self-care (01) | DRG 854 ==
LOC: ED 11:48 → 3A 22:24 → 4A 23:38
PROVIDERS: ADMIT Internal Medicine Geriatric Medicine; ATTEND Student in an Organized Health Care Education/Training Program
PROC: B4101ZZ Fluoroscopy of Abdominal Aorta using Low Osmolar Contrast (ICD-10-PCS; 2022-03-31)
PROC: B41G1ZZ Fluoroscopy of Left Lower Extremity Arteries using Low Osmolar Contrast (ICD-10-PCS; 2022-03-31)
PROC: 0Y6Q0Z0 Detachment at Left 1st Toe, Complete, Open Approach (ICD-10-PCS; principal; 2022-04-02)
DX: A41.9 Sepsis, unspecified organism (principal); M86.172 Other acute osteomyelitis, left ankle and foot; L03.116 Cellulitis of left lower limb; N30.00 Acute cystitis without hematuria; E11.621 Type 2 diabetes mellitus with foot ulcer; I11.0 Hypertensive heart disease with heart failure; I50.9 Heart failure, unspecified; Z86.718 Personal history of other venous thrombosis and embolism; J44.9 Chronic obstructive pulmonary disease, unspecified; M19.90 Unspecified osteoarthritis, unspecified site; F17.200 Nicotine dependence, unspecified, uncomplicated; E86.0 Dehydration; E11.65 Type 2 diabetes mellitus with hyperglycemia; B37.3 Candidiasis of vulva and vagina; E11.69 Type 2 diabetes mellitus with other specified complication
CPT/HCPCS: 36246; 36415; 75625; 75716; 80048; 80053; 80202; 81001; 82550; 82565; 82805; 82962; 83036; 83735; 84702; 85025; 85027; 85610; 85652; 85730; 86140; 87040; 87086; 88302; 88305; 88311; G0378; J3490; J7517; Q0177; Q9967; A9575; C1760; C1769; C1887; J0690; J0692; J1170; J1200; J1644; J1815; J2250; J2270; J2370; J2405; J2543; J2704; J2930; J3010; J3370; J7030; J7040; J7050; J7120